=== PATIENT | female | born 1995 | race Two or more races ===

== ENCOUNTER → 2024-04-28 | Outpatient (CLI) | payer MEDICAID, SELFPAY ==
--- NOTE | 2024-04-28 14:00 | XR_ITS ---
Examination: Abdomen sonogram, complete Date and time of exam: April 28, 2024 at 1409 hours INDICATIONS: Elevated liver function tests on laboratory examination performed 2 months ago. Technique: Multiple real-time grayscale transabdominal sonographic images of the abdomen have been obtained. Findings: Cholelithiasis Gallbladder wall 0.3 cm no edema Common bile duct 0.3 cm Pancreatic head 2.8 cm Aorta not enlarged Liver 17.4 cm fatty infiltration smooth contour no focal liver lesions Normal hepatopedal portal venous oh Patent IVC Right kidney 10.5 x 4.8 x 6.3 cm cortex 1.5 cm Left kidney 10.7 x 5.6 x 5.0 cm cortex 2.1 cm Minimal parenchymal scar formation Spleen 9.0 cm IMPRESSION: Cholelithiasis Fatty liver no focal liver lesions
== END | disposition home or self-care (01) ==
PROVIDERS: PCP Nurse Practitioner; Referring Provider Nurse Practitioner; Visit Provider Nurse Practitioner
DX: K80.20 Calculus of gallbladder without cholecystitis without obstruction (principal); K76.0 Fatty (change of) liver, not elsewhere classified
CPT/HCPCS: 76700

== ENCOUNTER 2024-06-25 15:59 | Emergency (ER) | payer MEDICAID, SELFPAY ==
[2024-06-25 16:00] VITALS: BMI 20.5
--- NOTE | 2024-06-25 16:44 | XR_ITS ---
Examination: PA lateral chest 2 views TECHNIQUE: Upright PA lateral chest 2 views Exam date and time: June 25, 2024 1706 hours INDICATIONS: Coughing beginning 2 days ago. FINDINGS: Normal heart size Lungs are clear. The osseous structures are intact IMPRESSION: No active disease
--- NOTE | 2024-06-25 16:48 | PD.EDRME ---
Rapid Medical Screening Exam RME Arrival date/time: 06/25/24 15:59 28 yr old female presents for concerns for generalized weakness pt reports that she has sjogerns and nausea and vomiting Chief Complaint: Weakness Time Seen by Provider: 06/25/24 16:10
[2024-06-25 16:51] VITALS: BP 103/72; PULSE 88; RESP 18; TEMP 36.9; O2SAT 99
[2024-06-25] MEDS: ONDANSETRON ODT 4 MG TABRAP PO (16:58)
[2024-06-25 17:46] LABS: Lactate (Lactic Acid) 1.7 mMol/L (0.4-2.0)
[2024-06-25 17:52] LABS: Basophils % (Auto) 0 % (0-2.5); Eosinophils % (Auto) 0 % (0-10); Hematocrit 25.1 % (36.0-46.0); Immature Granulocytes % (Auto) 3 % (0-0); Immature Granulocytes Auto 0.29 Thou/mm3 (0.00-0.00); Lymphocytes # (Auto) 1.1 Thou/mm3 (1.0-4.8); Lymphocytes % (Auto) 11 % (10-50); Mean Corpuscular HGB Conc 31.9 g/dl (31.0-37.0); Mean Corpuscular Hemoglobin 26.3 pg (25.0-35.0); Mean Corpuscular Volume 83 fL (80-100); Monocytes # (Auto) 0.4 Thou/mm3 (0.0-0.8); Monocytes % (Auto) 4 % (0-12); Neutrophils # (Auto) 8.5 Thou/mm3 (1.8-7.7); Neutrophils % (Auto) 83 % (37-80); Nucleated Red Blood Cell # 0.03 Thou/mm3 (0.00-0.00); Nucleated Red Blood Cell % 0 /100 WBC (0); Platelet Count 307 Thou/mm3 (140-440); RDW Standard Deviation 68.5 fL (36.4-46.3); Red Blood Count 3.04 Miln/mm3 (4.00-5.20); White Blood Count 10.3 Thou/mm3 (3.6-11.0)
[2024-06-25 18:25] LABS: Alanine Aminotransferase 48 U/L (10-49); Albumin, Serum 2.8 gm/dL (3.5-5.0); Albumin/Globulin Ratio 0.6 (1.2-2.2); Alkaline Phosphatase 428 U/L (46-116); Anion Gap 10 (7-16); Aspartate Amino Transferase 269 U/L (0-34); BUN/Creatinine Ratio 12 Ratio (12-20); Blood Urea Nitrogen 6 mg/dL (9-23); Calcium 8.5 mg/dL (8.3-10.6); Calcium (Corrected) 9.5 mg/dL (8.5-10.1); Chloride 104 mMol/L (98-107); Creatinine (Component) 0.5 mg/dL (0.6-1.3); Estimated Creatinine Clearance 142.7 mL/min (>60); Free T4 (Free Thyroxine) 0.86 ng/dL (0.89-1.76); Globulin 4.9 gm/dL (2.3-3.5); Glucose 98 mg/dL (74-106); Lipase 19 U/L (12-53); Osmolality,Calculated 271 (275-295); Procalcitonin 0.69 ng/ml (0.0-0.49); Sodium 137 mMol/L (136-145); Thyroid Stimulating Hormone 2.17 uIU/mL (0.55-4.78); Total Protein 7.7 gm/dL (5.7-8.2); eGFR > 60 See Note
[2024-06-25 18:47] LABS: HCG,Qualitative Serum Negative
[2024-06-25 20:39] VITALS: BP 92/63; PULSE 92; RESP 16; TEMP 37; O2SAT 99
[2024-06-25 23:22] LABS: Collection Type, Urine Clean Catch; Squamous Epithelial Cell,Urine 0 /hpf (0-5)
[2024-06-25 23:46] LABS: Bacteria,Urine 4+; Bilirubin,Urine 1+ (Negative); Blood,Urine Trace (Negative); Color,Urine Drk-Orange (Lt Yel-Yel); Glucose, Urine Trace (Negative); Ketones,Urine Negative (Negative); Leukocyte Esterase,Urine Positive (Negative); Nitrite,Urine Negative (Negative); Protein,Urine 2+ (Neg - Trace); RBC,Urine 26 /hpf (0-3); Specific Gravity,Urine 1.034 (1.001-1.035); WBC,Urine 20 /hpf (0-5)
[2024-06-25 23:48] LABS: Clarity,Urine Turbid (Clear/Hazy)
[2024-06-26 02:12] VITALS: BP 101/73; PULSE 88; RESP 12; TEMP 37; O2SAT 100
[2024-06-26 04:30] VITALS: BP 99/68; PULSE 90; RESP 17; TEMP 37.2; O2SAT 100
--- NOTE | 2024-06-26 06:47 | PD.EDWEAK ---
ED Weakness RME/HPI General Chief complaint: Weakness Stated complaint: VOMITING, WEAKNESS, BLE PAIN Time Seen by Provider: 06/25/24 16:10 Arrival date/time: 06/25/24 15:59 RME / HPI RME / HPI Narrative: 06/25/24 15:59 28 yr old female presents for concerns for generalized weakness pt reports that she has sjogerns and nausea and vomiting DR. VILLALTA MAIN ED EVALUATION 28 y/o female with Hx of Sjorgren's Syndrome presents to ED c/o nausea and weakness x . Related Data Previous Rx's ?Medication ?Instructions ?Recorded azithromycin 250 mg tablet See Rx Instructions PO .COMPLEX #6 11/28/19 (Zithromax) tabs promethazine-DM 6.25 mg-15 mg/5 mL 5 ml PO Q6H PRN cough #120 mL 11/28/19 oral syrup Allergies Allergy/AdvReac Type Severity Reaction Status Date / Time No Known Allergies Allergy Verified 06/25/24 16:00 Review of Systems Review of Systems Systems Reviewed: All systems reviewed, normal except as documented Narrative Review of Systems: Gen: No fever, no chills, no weight loss EYES: No discharge, no visual changes, no pain HEENT: No ear pain, no congestion, no sore throat PULM: No shortness of breath, no cough, no congestion CV: No chest pain, no dyspnea on exertion, no palpitations GI: No nausea, no vomiting, no diarrhea, no pain, no constipation : No frequency, no urgency, no dysuria Musc/skel: No joint pain, no back pain Skin: No rash Psyc: No hallucinations, no depression Heme/Lymph: No easy bleeding or bruising tendencies Neuro: No weakness, no headache ED Exam Narrative Physical exam: GEN. APPEARANCE: The patient is alert awake oriented X-3 in distress, lying down comfortably, does not look ill/toxic. Patient has good eye contact. Patient is cooperative. VITALS: All vitals were reviewed and the pulse ox is []% on room air which is normal according to my interpretation. HEENT: Normocephalic, atraumatic. Pupils are equal and reactive. Oral mucosa is moist. Patent Nares NECK: Supple, nontender, no thyromegaly, no meningismus, no JVD, no step offs CHEST: Symmetrical, atraumatic, and with equal expansion , Nontender on palpation no deformity and no crepitus. CARDIOVASCULAR: Heart regular rhythm no murmur or gallop rub or extra beats. LUNGS: Clear to auscultation bilaterally with symmetrical chest rise. No laboring tachypnea or wheezing. No intercostal subcostal retraction. No rales and no rhonchi. ABDOMEN: Soft, flat, nontender to palpation, no guarding or rebound tenderness. There are no abnormal masses palpated. Active and normal bowel sounds. EXTREMITIES: Nontender. No edema. No cyanosis. Patient is able to move all 4 extremities well, with full ROM and good CSM. SKIN: Warm and dry, no jaundice or rashes noted. MUSCULOSKELETAL: No lubar or midline bony tenderness. There is no CVA tenderness. No paraspinal muscle spasm or tenderness. NEURO: Patient is PEREZ x 4, Cranial nerves II through XII grossly intact. There is no focal neurologic deficits noted. GCS is 15, PNS and MARINE ARCHITECT appear grossly intact. PSYCHIATRIC: Patient is in normal mood and affect, cooperative, no SI or HI or hallucinations. Course Course Course Narrative: Patient remains clinically stable throughout the emergency department visit/*not in respiratory distress/*neurologically intact. We reviewed all the results, analysis, and treatment plans. Patient is amenable to discharge/*admission. Strict return precautions were outlined. Patient was discharged in stable condition. Orders Category Date Time Status Bedside Influenza A&B Antigen Test NOW Care 06/25/24 16:44 Completed XR chest 2V Stat Exams 06/25/24 16:44 Completed Blood Culture (Lab) Stat Lab 06/25/24 17:20 Received CBC Stat Lab 06/25/24 17:25 Completed Comprehensive Metabolic Panel Stat Lab 06/25/24 17:25 Completed Free T4 (Free Thyroxine) Stat Lab 06/25/24 17:25 Completed HCG,Qualitative Serum Stat Lab 06/25/24 17:25 Completed Lactate (Lactic Acid) Stat Lab 06/25/24 17:25 Completed Lipase Stat Lab 06/25/24 17:25 Completed Procalcitonin Stat Lab 06/25/24 17:25 Completed TSH [Thyroid Stimulating Hormone] Stat Lab 06/25/24 17:25 Completed Urinalysis Stat Lab 06/25/24 23:09 Completed Urine Culture Stat Lab 06/25/24 23:09 Received Metoclopramide Inj [Reglan Inj] Med 06/26/24 06:49 Discontinued 10 mg IVP X1 ONE Ondansetron Inj [Zofran Inj] Med 06/26/24 06:46 Discontinued 4 mg IV X1 ONE Ondansetron Odt [Zofran Odt] Med 06/25/24 16:52 Discontinued 4 mg PO X1 ONE Sodium Chloride 0.9% 1000 ml [Ns] 1,000 ml Med 06/26/24 06:46 Discontinued IV 999 mls/hr Sodium Chloride 0.9% 500 ml [Ns] 500 ml Med 06/26/24 06:46 Discontinued IV 999 mls/hr cefTRIAXone/D5w 1gm IV premix [Rocephin/D5w 1gm IV Med 06/26/24 06:46 Discontinued premix] 1 gm in 50 ml IV X1 Vital Signs Vital signs: Vital Signs Temperature 98.5 F 06/25/24 16:51 Pulse Rate 88 06/25/24 16:51 Respiratory Rate 18 06/25/24 16:51 Blood Pressure 103/72 06/25/24 16:51 Pulse Oximetry (%) 99 06/25/24 16:51 Oxygen Delivery Method Room Air 06/25/24 16:51 Weakness Medications / Prescriptions Medication administrations:: Medication Administration History Discontinued Medications Sodium Chloride (Ns) 1,000 mls @ 999 mls/hr IV .Q1H1M ONE Stop: 06/26/24 07:46 Last Admin: 06/26/24 06:56 Dose: 999 mls/hr Documented By: ARMIDA Sodium Chloride (Ns) 500 mls @ 999 mls/hr IV .Q31M ONE Stop: 06/26/24 07:16 Last Admin: 06/26/24 07:00 Dose: 999 mls/hr Documented By: ARMIDA Ceftriaxone Sodium/Dextrose (Rocephin/D5w 1gm Iv Premix) 1 gm in 50 mls @ 100 mls/hr IV X1 ONE Stop: 06/26/24 07:15 Metoclopramide HCl (Metoclopramide Inj 5 Mg/Ml Vial 2 Ml) 10 mg IVP X1 ONE; Protocol Stop: 06/26/24 06:50 Last Admin: 06/26/24 07:00 Dose: 10 mg Documented By: ARMIDA Ondansetron HCl (Ondansetron Odt 4 Mg Tabrap) 4 mg PO X1 ONE; Protocol Stop: 06/25/24 16:53 Last Admin: 06/25/24 16:58 Dose: 4 mg Documented By: ANNALISA Ondansetron HCl (Ondansetron Inj 2 Mg/Ml Inj 2 Ml) 4 mg IV X1 ONE; Protocol Stop: 06/26/24 06:47 Last Admin: 06/26/24 07:00 Dose: Not Given Documented By: ARMIDA Non-Admin Reason: Discontinued Discharge Plan Prescriptions/Referrals Prescriptions/Med Rec: No Action azithromycin [Zithromax] 250 mg tablet See Rx Instructions .ROUTE .COMPLEX Qty: 6 0RF Rx Instructions: take 500 mg today (day 1), then 250 mg for 4 days (days 2-5) promethazine-DM 6.25-15 mg/5 mL syrup 5 ml PO Q6H PRN (Reason: cough) Qty: 120 0RF Referrals: Marek Bullock MD [Primary Care Provider] - In 1 week Patient/Caregiver Discharge Instructions Print Language: [place]ese
[2024-06-26] MEDS: SODIUM CHLORIDE 0.9% 1000 ML 1,000 ML 999 ML IV (06:56)
[2024-06-26] MEDS: METOCLOPRAMIDE INJ 5 MG/ML VIAL 2 ML 10 MG IVP (07:00)
[2024-06-26] MEDS: SODIUM CHLORIDE 0.9% 500 ML 500 ML 999 ML IV (07:00)
--- NOTE | 2024-06-26 07:00 | PC.NURSE ---
mandi out of antibiotic, pharmacy to bring med.
--- NOTE | 2024-06-26 07:35 | PD.EDWEAK ---
ED Weakness RME/HPI General Chief complaint: Weakness Stated complaint: VOMITING, WEAKNESS, BLE PAIN Time Seen by Provider: 06/25/24 16:10 Arrival date/time: 06/25/24 15:59 RME / HPI RME / HPI Narrative: 06/25/24 15:59 28 yr old female presents for concerns for generalized weakness pt reports that she has sjogerns and nausea and vomiting DR. VILLALTA MAIN ED EVALUATION: 28 year old female with past medical history significant for Sj?gren's Syndrome presents to the Emergency Department with complaints of generalized weakness, nausea and vomiting. Symptoms are moderate. A year ago, March 2023, patient developed generalized joint pain, intially iagnosed with fibromyalgia by her PCP at [facility]. October 2023 the patient began experiencine nausea without the pain. January 2024 began vomit most solids where from March on could only tolerate rice and fruits. She has lost weight since January going from approximately 180 pounds to today 120 pounds. As result she has become weak requiring her mother had to move in with her to help care for her 2 children at home. In January 2024, her PCP expanded workup and told possibly has Sj?gren's Syndrome and referred to a press operator assistant in [place]. On first visit with press operator assistant March, her liver enzymes were abnormal and US showed liver disease. She has not been diagnosed yet with Sjogren's pending liver work-up. This included follow-up labs and US which was scheduled yesterday. After her outpatient ultrasound yesterday she felt too weak to get to her car therefore she presented to the emergency department for assessment. w She states, her vomiting has worsened over the last 4 days. No pain with eating just nausea. No diarrhea, no constipation. No dysuria, polyuria or nocturia. Patient denies any abdominal pain. She describes nausea at even the smell of food. She completed a short course of ondansetron with improvement of symptoms but still felt mild nausea. Related Data Previous Rx's ?Medication ?Instructions ?Recorded azithromycin 250 mg tablet See Rx Instructions PO .COMPLEX #6 11/28/19 (Zithromax) tabs promethazine-DM 6.25 mg-15 mg/5 mL 5 ml PO Q6H PRN cough #120 mL 11/28/19 oral syrup cephalexin 500 mg capsule 500 mg PO BID #6 caps 06/26/24 metoclopramide HCl 10 mg tablet 10 mg PO BID PRN nausea and 06/26/24 vomiting #10 tabs Allergies Allergy/AdvReac Type Severity Reaction Status Date / Time No Known Allergies Allergy Verified 06/25/24 16:00 Review of Systems Review of Systems Systems Reviewed: All systems reviewed, normal except as documented Narrative Review of Systems: GEN: No fever, no chills, no weight loss EYES: No discharge, no visual changes, no pain HEENT: No ear pain, no congestion, no sore throat PULM: No shortness of breath, no cough, no congestion CV: No chest pain, no dyspnea on exertion, no palpitations GI: + nausea, + vomiting, no diarrhea, no pain, no constipation : No frequency, no urgency and no dysuria MUSC/SKEL: No joint pain, no back pain SKIN: No rash PSYCH: No hallucinations, no depression HEME/LYMPH: No easy bleeding or bruising tendencies NEURO: + generalized weakness, no headache Past Medical History Past Medical History CARDIAC: Negative Congestive Heart Failure RESPIRATORY: Negative Chronic Obstructive Pulmonary Disease (COPD) GENITOURINARY: Negative Renal Disease ENDOCRINE: Negative Diabetes Mellitus Type 1 or Diabetes Mellitus Type 2 Social History SMOKING STATUS: Never smoker SUBSTANCE USE: does not use ALCOHOL: Never Past Medical History Comments PMH COMMENT: Sj?gren's Syndrome ED Exam Narrative Physical exam: GENERAL APPEARANCE: AxOx4, generally well-appearing, no acute distress, patient looks dehydrated, she has cracked, dry lips; constantly licking her lips; slight pallor; skin is dry and scaly; hair is brittle but no alopecia HEENT: NC, AT. MMM. EOMI, clear conjunctiva, oropharynx clear; patient has cracked, dry lips NECK: Supple without lymphadenopathy. No stiffness or restricted ROM. HEART: Normal rate and regular rhythm, normal S1/S1, no m/r/g LUNGS: CTAB, moving air well. No crackles or wheezes are heard. ABDOMEN: Soft, nontender, nondistended with good bowel sounds heard. BACK: No midline C/T/L spine pain or deformity, No CVAT, no obvious deformity. EXTREMITIES: Without cyanosis, clubbing or edema. MUSCULOSKELETAL: FROM of all major joints, no chest tenderness NEUROLOGICAL: Grossly nonfocal. Alert and oriented, moving all 4 extremities. CN not formally tested but appear grossly intact. Observed to ambulate with normal gait. Skin: Warm and dry without any rash; slight pallor, no jaundice; she has loose skin around her abdomen area from a lot of weight loss; skin is dry and scaly Course Quality Measures none Orders Category Date Time Status Bedside Influenza A&B Antigen Test NOW Care 06/25/24 16:44 Completed XR chest 2V Stat Exams 06/25/24 16:44 Completed Blood Culture (Lab) Stat Lab 06/25/24 17:20 Received CBC Stat Lab 06/25/24 17:25 Completed Comprehensive Metabolic Panel Stat Lab 06/25/24 17:25 Completed Free T4 (Free Thyroxine) Stat Lab 06/25/24 17:25 Completed HCG,Qualitative Serum Stat Lab 06/25/24 17:25 Completed Lactate (Lactic Acid) Stat Lab 06/25/24 17:25 Completed Lipase Stat Lab 06/25/24 17:25 Completed Procalcitonin Stat Lab 06/25/24 17:25 Completed TSH [Thyroid Stimulating Hormone] Stat Lab 06/25/24 17:25 Completed Urinalysis Stat Lab 06/25/24 23:09 Completed Urine Culture Stat Lab 06/25/24 23:09 Received Metoclopramide Inj [Reglan Inj] Med 06/26/24 06:49 Discontinued 10 mg IVP X1 ONE Ondansetron Inj [Zofran Inj] Med 06/26/24 06:46 Discontinued 4 mg IV X1 ONE Ondansetron Odt [Zofran Odt] Med 06/25/24 16:52 Discontinued 4 mg PO X1 ONE Sodium Chloride 0.9% 1000 ml [Ns] 1,000 ml Med 06/26/24 06:46 Discontinued IV 999 mls/hr Sodium Chloride 0.9% 500 ml [Ns] 500 ml Med 06/26/24 06:46 Discontinued IV 999 mls/hr cefTRIAXone/D5w 1gm IV premix [Rocephin/D5w 1gm IV Med 06/26/24 06:46 Discontinued premix] 1 gm in 50 ml IV X1 Reevaluation(s) Reevaluation #1: Reassessment at this time, patient has no more nausea after reglan. Patient is going to try to eat a turkey sandwich here and then we will re-assess. Time: 08:51 Reevaluation #2: Reassessment at this time, patient is feeling better. She was able to eat 2 bites of a turkey sandwich and no nausea at all. She states that reglan works better for her than zofran; she states even after taking zofran she would sometimes feel a little nauseous but today with reglan she feels so much better. Time: 09:11 Vital Signs Vital signs: Vital Signs Temperature 98.5 F 06/25/24 16:51 Pulse Rate 88 06/25/24 16:51 Respiratory Rate 18 06/25/24 16:51 Blood Pressure 103/72 06/25/24 16:51 Pulse Oximetry (%) 99 06/25/24 16:51 Oxygen Delivery Method Room Air 06/25/24 16:51 Weakness MDM Narrative MDM Narrative:: Ms. Chambers is a clinically nontoxic-appearing female, who appears to have some component of undernutrition particularly micronutrient and nutrition secondary to persistent/chronic nausea and vomiting. This is possibly around the setting of a pending diagnosis of Sjogren's disease. Workup and treatment has been initiated and these last months with a press operator assistant in [place]. There appears to be no acute changes in her nausea and vomiting particularly that it has reached a certain level of hydration and nutrient deficiency that is caused generalized weakness. This weakness has been since January where her mother has moved into the house to assist with the care of her children. Through her workup this included a visit to the outpatient ultrasound suite where since she was here she comes to the emergency department for this weakness. On my exam she does appear dehydrated, with dry lips, on top of a chronic undernutrition. She has hair and skin changes also suggestive of micronutrient deficiency all in the setting of chronic poor intake. Most acutely is that she does appear dehydrated, tachycardic here in the emergency department which is more fitting with her difficulty getting home from the outpatient ultrasound yesterday. As a result she was hydrated with 1.5 L of NS (just under 30 cc/kg) and her only laboratory abnormality was a moderate amount of bacteriuria, therefore she was given her first dose of Rocephin. In this treatment process, we did experiment with an alternative antiemetic, metoclopramide, taking the possibility of her having the diagnosis of Sjogren's which can have associated gastroparesis. After giving the metoclopramide, she noticed that this had completely resolved her nausea (while she was on ondansetron she always had some mild nausea regardless). She was able to tolerate 2 bites of a turkey sandwich which is more substance than she has had since March. And of note she had no nausea with the food nor with its smell. She states the last she felt this way was as far back as March as well. Given her symptomatic improvement with the metoclopramide, reviewed some of the risks of long-term metoclopramide use including akathisia and tardive dyskinesias. We agreed on a short course of metoclopramide, this also in consideration that she has a rheumatology appointment next week. She will discuss longer-term antiemetic needs with her press operator assistant and her primary care doctor. As for her asymptomatic bacteriuria we will treat her with 3 days of cephalexin it is appropriate to follow-up with your primary care doctor for this. IJelly, am scribing for and in the presence of Dr. Villalta. Patient data External records reviewed:: [facility] previous records (Reviewed last ED visit dated 11/28/19, discharged with the following: Cough) Clinical information provided by:: patient Social determinants that could affect healthcare access:: none Patient has the following chronic illnesses:: Sj?gren's Syndrome How is presenting disease/condition affected by chronic disease/condition?: exacerbated by Evaluation data The following diagnostics were reviewed and interpreted by me:: lab results and radiology exam(s) Lab and/or radiology exams considered but not ordered:: none Interpretation Summary: Examination: PA lateral chest 2 views TECHNIQUE: Upright PA lateral chest 2 views Exam date and time: June 25, 2024 1706 hours INDICATIONS: Coughing beginning 2 days ago. FINDINGS: Normal heart size Lungs are clear. The osseous structures are intact IMPRESSION: No active disease Dictated By: Richi Del Real MD Medications / Prescriptions Medications or Prescriptions considered but not ordered:: none Medication administrations:: Medication Administration History Discontinued Medications Sodium Chloride (Ns) 1,000 mls @ 999 mls/hr IV .Q1H1M ONE Stop: 06/26/24 07:46 Last Infusion: 06/26/24 08:00 Dose: Infused Documented By: Admin: 06/26/24 06:56 Dose: 999 mls/hr Documented By: ARMIDA Sodium Chloride (Ns) 500 mls @ 999 mls/hr IV .Q31M ONE Stop: 06/26/24 07:16 Last Infusion: 06/26/24 08:00 Dose: Infused Documented By: Admin: 06/26/24 07:00 Dose: 999 mls/hr Documented By: ARMIDA Ceftriaxone Sodium/Dextrose (Rocephin/D5w 1gm Iv Premix) 1 gm in 50 mls @ 100 mls/hr IV X1 ONE Stop: 06/26/24 07:15 Last Admin: 06/26/24 08:14 Dose: 100 mls/hr Documented By: AILIN Metoclopramide HCl (Metoclopramide Inj 5 Mg/Ml Vial 2 Ml) 10 mg IVP X1 ONE; Protocol Stop: 06/26/24 06:50 Last Admin: 06/26/24 07:00 Dose: 10 mg Documented By: ARMIDA Ondansetron HCl (Ondansetron Odt 4 Mg Tabrap) 4 mg PO X1 ONE; Protocol Stop: 06/25/24 16:53 Last Admin: 06/25/24 16:58 Dose: 4 mg Documented By: ANNALISA Ondansetron HCl (Ondansetron Inj 2 Mg/Ml Inj 2 Ml) 4 mg IV X1 ONE; Protocol Stop: 06/26/24 06:47 Last Admin: 06/26/24 07:00 Dose: Not Given Documented By: ARMIDA Non-Admin Reason: Discontinued see above Consultations Consultation(s) initiated? (list below): No Diagnosis Weakness Differential Diagnosis: dehydration and other (Sj?gren's Syndrome, electrolyte imbalance) Most likely diagnosis given after review of the tests above:: Nausea and vomiting Arthritis UTI Admission Indicated Admission indicated?: not indicated Admission Request Was there a request for admission?: No Disposition Plan Disposition Plan: Discharge Discharge Attestation Discharge Attestation: The patient and all family members were given an opportunity to ask questions and understood the discharge instructions. Discharge instructions specifically effects, indications for sooner follow up or return to the emergency department, and the expected course of current diagnosis. Patient condition: Stable Discharge Plan Plan Patient Disposition: HOME (Self Care) Prescriptions/Referrals Prescriptions/Med Rec: New metoclopramide HCl 10 mg tablet 10 mg PO BID PRN (Reason: nausea and vomiting) Qty: 10 0RF cephalexin 500 mg capsule 500 mg PO BID Qty: 6 0RF No Action azithromycin [Zithromax] 250 mg tablet See Rx Instructions .ROUTE .COMPLEX Qty: 6 0RF Rx Instructions: take 500 mg today (day 1), then 250 mg for 4 days (days 2-5) promethazine-DM 6.25-15 mg/5 mL syrup 5 ml PO Q6H PRN (Reason: cough) Qty: 120 0RF Referrals: Marek Bullock MD [Primary Care Provider] - In 1 week Problem List Clinical Impression: Nausea & vomiting, Arthritis, UTI (urinary tract infection) Patient/Caregiver Discharge Instructions Education Materials: ED Diet for Vomiting or ..., ED CYSTITIS Female Adult Additional Instructions: Follow-up with your press operator assistant as scheduled this week. You can return to the emergency department sooner if symptoms worsen or if he notes any new, concerning issues. Try to increase plant-based foods in your diet particularly foods that are green leafy with high fiber. Print Language: Syriac Stand Alone Forms: Torie Award Info., Patient Portal Info Letter
[2024-06-26 07:54] VITALS: BP 105/72; PULSE 90; RESP 16; TEMP 36.8; O2SAT 100
[2024-06-26] MEDS: cefTRIAXone/D5w 1gm IV premix 1 GM/50 ML BAG IV (08:14)
--- NOTE | 2024-06-26 09:00 | PC.NURSE ---
FLUIDS AND SANDWICH PROVIDED. PT TOLERATED WELL.
[2024-06-26 09:23] VITALS: BP 112/62; PULSE 88; RESP 16; TEMP 36.6; O2SAT 100
== END 2024-06-26 09:28 | disposition home or self-care (01) ==
PROVIDERS: Nurse Practitioner Primary Care; Emergency Provider Emergency Medicine; PCP Family Medicine
DX: R11.2 Nausea with vomiting, unspecified (principal); N39.0 Urinary tract infection, site not specified; M19.90 Unspecified osteoarthritis, unspecified site; M35.00 Sjogren syndrome, unspecified; M79.7 Fibromyalgia
CPT/HCPCS: 36415; 71046; 80053; 81001; 83605; 83690; 84145; 84439; 84443; 84703; 85025; 87040; 87086; 87400; 96361; 96374; 99284; J0696; J2765; J7030; J7040; Q0162

== ENCOUNTER → 2024-06-25 | Outpatient (CLI) | payer MEDICAID, SELFPAY ==
--- NOTE | 2024-06-25 12:30 | XR_ITS ---
Examination: Abdomen sonogram, Limited Date and time of exam: June 25, 2024 1226 hours INDICATIONS: Elevated liver function tests on laboratory examination performed one month ago. TECHNIQUE: Sonographic images upright abdomen FINDINGS: Cholelithiasis Gallbladder wall 0.3 cm no edema Common bile duct 0.4 cm Pancreatic head 1.9 cm Liver 22.8 cm fatty infiltration irregular contour Normal hepatopedal portal venous flow Patent IVC IMPRESSION: Cholelithiasis Significant hepatomegaly primary hepatocellular disease
== END | disposition home or self-care (01) ==
PROVIDERS: PCP Nurse Practitioner Family; Referring Provider Internal Medicine Rheumatology; Visit Provider Internal Medicine Rheumatology
DX: K80.20 Calculus of gallbladder without cholecystitis without obstruction (principal); R16.0 Hepatomegaly, not elsewhere classified
CPT/HCPCS: 76705

== ENCOUNTER 2024-07-02 14:19 | Emergency (ER) | payer MEDICAID, SELFPAY ==
[2024-07-02 14:52] VITALS: BP 91/62; PULSE 106; RESP 18; TEMP 36.9; O2SAT 98; BMI 19.7
--- NOTE | 2024-07-02 15:09 | XR_ITS ---
Examination: CT abdomen with intravenous contrast CT pelvis with intravenous contrast 2-D coronal reconstructions 2-D sagittal reconstructions Date and time of exam:July 02, 2024 1736 hrs. Indications: Right lower abdominal pain onset today. CTDI: vol (mGy) 5.08 DLP: (mGycm) 289 Technique: Multiple axial sections of the abdomen and pelvis have been obtained. 64 slice high-resolution scanner used. 3 mm axial sections have been obtained, post intravenous injection 60 cc [id number] 2-D sagittal, coronal reconstructions obtained. Low dose protocols were performed. One or more of the following dose reduction techniques were used; automated exposure control, adjustment of the mA and/or KV according to patient size, use of iterative reconstruction technique. Findings: Severe diffuse fatty infiltration throughout the liver, marked hepatomegaly 23 cm Gallstones No definite thickening of the gallbladder wall Spleen is not enlarged No pancreatic or adrenal mass Mild diffuse edema involving the right kidney Normal appendix No bowel obstruction Septated bilateral adnexal cysts, 15 mm 14 mm on the left side, 18 mm 12 mm on the right side Minimal thickening gallbladder wall 3 mm Impression: Normal appendix Suspicious for acute right pyelonephritis Prominent hepatomegaly with severe diffuse fatty infiltration throughout the liver Prominent ovarian bilateral follicular cysts, consider pelvic sonography follow-up
--- NOTE | 2024-07-02 15:09 | EKG_ITS ---
[facility] Test Date: 2024-07-02 Pat Name: VICTOR M ALLRED Department: Room: - Gender: Female [place]: : 1995 Requested By: Carolyn Hall ([facility]) Irina Order Number: [id number] Reading MD: Carolyn Hall ([facility]) Irina Measurements Intervals [place] Rate: 101 P: 35 ME: 127 QRS: 75 QRSD: 80 T: 50 QT: 335 QTc: 434 Interpretive Statements SINUS TACHYCARDIA ABNORMAL RHYTHM ECG No previous ECG available for comparison /store/S0/[id number]/ecg/[id number].pdf
--- NOTE | 2024-07-02 15:09 | PD.EDRME ---
Rapid Medical Screening Exam RME Arrival date/time: 07/02/24 14:19 28-year-old female presents emergency department complaints of nausea vomiting abdominal pain history of anemia. I have greeted and performed a focused initial assessment of this patient. Initial appropriate labs ordered at this time. A comprehensive ED assessment and evaluation of the patient and analysis of all test and completion of medical decision making process will be conducted by additional ED provider. Chief Complaint: Nausea/Vomiting/Diarrhea Time Seen by Provider: 07/02/24 14:50 Vital signs: Vital Signs Temperature 98.4 F 07/02/24 14:52 Pulse Rate 106 H 07/02/24 14:52 Respiratory Rate 18 07/02/24 14:52 Blood Pressure 91/62 07/02/24 14:52 Pulse Oximetry (%) 98 07/02/24 14:52 Oxygen Delivery Method Room Air 07/02/24 14:52
[2024-07-02 15:44] VITALS: BP 95/61; PULSE 103; RESP 16; O2SAT 100
[2024-07-02 15:49] LABS: Basophils % (Auto) 0 % (0-2.5); Eosinophils % (Auto) 0 % (0-10); Hematocrit 23.8 % (36.0-46.0); Immature Granulocytes % (Auto) 2 % (0-0); Immature Granulocytes Auto 0.21 Thou/mm3 (0.00-0.00); Lymphocytes # (Auto) 0.8 Thou/mm3 (1.0-4.8); Lymphocytes % (Auto) 8 % (10-50); Mean Corpuscular HGB Conc 31.9 g/dl (31.0-37.0); Mean Corpuscular Hemoglobin 26.5 pg (25.0-35.0); Mean Corpuscular Volume 83 fL (80-100); Monocytes # (Auto) 0.3 Thou/mm3 (0.0-0.8); Monocytes % (Auto) 4 % (0-12); Neutrophils # (Auto) 8.5 Thou/mm3 (1.8-7.7); Neutrophils % (Auto) 86 % (37-80); Nucleated Red Blood Cell # 0.05 Thou/mm3 (0.00-0.00); Nucleated Red Blood Cell % 1 /100 WBC (0); Platelet Count 283 Thou/mm3 (140-440); RDW Standard Deviation 72.8 fL (36.4-46.3); Red Blood Count 2.87 Miln/mm3 (4.00-5.20); White Blood Count 9.9 Thou/mm3 (3.6-11.0)
[2024-07-02 15:56] LABS: Hemoglobin 7.6 g/dL (12.0-16.0)
[2024-07-02 16:00] LABS: HCG,Qualitative Serum Negative
[2024-07-02] MEDS: SODIUM CHLORIDE 0.9% 1000 ML 1,000 ML 999 ML IV ×2 (16:05→18:46)
[2024-07-02] MEDS: ONDANSETRON INJ 2 MG/ML INJ 2 ML 4 MG IV (16:05)
[2024-07-02 16:06] LABS: Alanine Aminotransferase 36 U/L (10-49); Albumin, Serum 2.5 gm/dL (3.5-5.0); Albumin/Globulin Ratio 0.5 (1.2-2.2); Alkaline Phosphatase 383 U/L (46-116); Anion Gap 11 (7-16); Aspartate Amino Transferase 193 U/L (0-34); BUN/Creatinine Ratio 13 Ratio (12-20); Bilirubin,Total 1.2 mg/dL (0.3-1.2); Blood Urea Nitrogen 8 mg/dL (9-23); Calcium 7.8 mg/dL (8.3-10.6); Carbon Dioxide 22.1 mMol/L (20.0-31.0); Chloride 102 mMol/L (98-107); Creatinine (Component) 0.6 mg/dL (0.6-1.3); Estimated Creatinine Clearance 113.9 mL/min (>60); Globulin 4.9 gm/dL (2.3-3.5); Glucose 97 mg/dL (74-106); Lipase 20 U/L (12-53); Magnesium 2.1 mg/dL (1.6-2.6); Osmolality,Calculated 268 (275-295); Potassium 3.6 mMol/L (3.4-5.1); Sodium 135 mMol/L (136-145); Total Protein 7.4 gm/dL (5.7-8.2); eGFR > 60 See Note
--- NOTE | 2024-07-02 16:10 | PC.NURSE ---
pt came in reporting abdomincal pain for a week. reports that the weakness & nausea has worsen. unable to keep anything down. mom at bedside
[2024-07-02 16:18] LABS: Prothrombin Time 10.9 Seconds (9.0-12.2)
--- NOTE | 2024-07-02 16:27 | PC.NURSE ---
occult stool collected. negative
[2024-07-02 16:38] LABS: OBS Card Expiration Date 5/31/2026; OBS Developer Lot # 124; OBS Performed By chatk; OBS QC OK? Yes; Occult Blood, Stool Negative (Negative)
--- NOTE | 2024-07-02 16:42 | PD.EDABDPN ---
ED Abdominal Pain RME/HPI General Chief Complaint: Nausea/Vomiting/Diarrhea Stated complaint: NAUSEA / VOMITING / ABD PAIN X 2 WKS; HX GALLSTONE Time seen by provider: 07/02/24 14:50 Arrival date/time: 07/02/24 14:19 RME / HPI RME / HPI narrative: 07/02/24 14:19 28-year-old female presents emergency department complaints of nausea vomiting abdominal pain history of anemia. I have greeted and performed a focused initial assessment of this patient. Initial appropriate labs ordered at this time. A comprehensive ED assessment and evaluation of the patient and analysis of all test and completion of medical decision making process will be conducted by additional ED provider. DR. PERRIN MAIN ED EVALUATION 28 year old female with history of anemia and gallstones presents to the ED for complaint of abdominal pain today. Pain described as aching in sensation that is located most to the right upper quadrant and epigastric regions, rating as moderate. Accompanied by nausea, vomiting, and global weakness. Patient reports she has had abdominal pain with nausea and vomiting for several months, close to 1 year. However has noted it is worse in the last 2 days. States she has yet to consult with general surgeon. Denies fevers, chills, sweats. Denies chest pain, cough, shortness of breath. Denies blood in stool or vomit, diarrhea, constipation. Denies dysuria, urinary frequency and urgency. Patient mentioned her menses are normal and light . Related Data Previous Rx's ?Medication ?Instructions ?Recorded azithromycin 250 mg tablet See Rx Instructions PO .COMPLEX #6 11/28/19 (Zithromax) tabs promethazine-DM 6.25 mg-15 mg/5 mL 5 ml PO Q6H PRN cough #120 mL 11/28/19 oral syrup cephalexin 500 mg capsule 500 mg PO BID #6 caps 06/26/24 metoclopramide HCl 10 mg tablet 10 mg PO BID PRN nausea and 06/26/24 vomiting #10 tabs ondansetron 4 mg disintegrating 4 mg PO Q8H PRN nausea and 07/03/24 tablet vomiting #20 tabs Allergies Allergy/AdvReac Type Severity Reaction Status Date / Time No Known Allergies Allergy Verified 07/02/24 14:23 Review of Systems Review of Systems Narrative Review of Systems: GEN: No fever, no chills, +generalized weakness EYES: No discharge, no visual changes, no pain HEENT: No ear pain, no congestion, no sore throat PULM: No shortness of breath, no cough, no congestion CV: No chest pain, no dyspnea on exertion, no palpitations GI: + nausea, +vomiting, no diarrhea, +pain, no constipation : No frequency, no urgency, no dysuria MUSC/SKEL: No joint pain, no back pain SKIN: No rash NEURO: no headache Past Medical History Past Medical History CARDIAC: Negative Cardiac Disorders or Congestive Heart Failure RESPIRATORY: Negative Chronic Obstructive Pulmonary Disease (COPD) or Asthma GENITOURINARY: Negative Renal Disease ENDOCRINE: Negative Diabetes Mellitus Type 1 or Diabetes Mellitus Type 2 HEMATOLOGIC: Negative Sickle Cell Disease Social History SMOKING STATUS: Never smoker SUBSTANCE USE: does not use ED Exam Narrative Physical exam: GENERAL APPEARANCE: alert and oriented x 4, well-developed, appears under nourished, pale HEENT: Normocephalic, atraumatic; pupils equal, round, reactive to light; EOMI; mucous membranes pink, moist; oropharynx clear NECK: Supple LUNGS: CTABL; no wheezes, no rales, no rhonchi HEART: Regular rate, regular rhythm; normal S1, S2; no murmurs ABDOMEN: mildly distended; normal BS; soft, no tenderness, no guarding, no rebound; no masses, no organomegaly, no hernia BACK: no CVA tenderness EXTREMITIES: atraumatic; no edema NEUROLOGIC: awake; alert and oriented x4; cranial nerves II-XII grossly intact; no focal sensory or motor deficits PSYCHIATRIC: appropriate mood and affect SKIN: warm, dry, pale; no rashes Course Course Course Narrative: 1800: Patient signed out pending CT report and final disposition. Quality Measures none Orders Category Date Time Status CT Screening NOW Care 07/02/24 15:10 Completed EKG (ED ONLY) *Do not use* NOW Care 07/02/24 15:09 Completed Insert IV NOW Care 07/02/24 15:10 Completed NPO STAT Care 07/02/24 15:09 Completed Occult Blood,Stool (Nursing) NOW Care 07/02/24 16:[address] abdomen pelvis w con Stat Exams 07/02/24 15:09 Completed EKG (ED Only) Stat Exams 07/02/24 15:09 Draft US gall bladder Stat Exams 07/03/24 05:25 Completed US pelvic complete Stat Exams 07/02/24 21:24 Completed CBC Stat Lab 07/02/24 15:25 Completed Comprehensive Metabolic Panel Stat Lab 07/02/24 15:25 Completed Drug Screen,Urine Stat Lab 07/02/24 18:48 Completed HCG,Qualitative Serum Stat Lab 07/02/24 15:25 Completed Lipase Stat Lab 07/02/24 15:25 Completed Magnesium Stat Lab 07/02/24 15:25 Completed Occult Blood, Stool (LAB) Stat Lab 07/02/24 16:20 Completed Prothrombin Time with INR Stat Lab 07/02/24 15:25 Completed Type and Screen Stat Lab 07/02/24 15:25 Completed UA, C/S IF [Urinalysis, C/S if Indicated] Stat Lab 07/02/24 18:48 Completed UA, C/S IF [Urinalysis, C/S if Indicated] Stat Lab 07/02/24 19:54 Completed Urinalysis Stat Lab 07/02/24 18:48 Completed Urinalysis Stat Lab 07/02/24 19:54 Completed Metoclopramide Inj [Reglan Inj] Med 07/03/24 06:15 Discontinued 10 mg IVP X1 ONE Ondansetron Inj [Zofran Inj] Med 07/02/24 15:10 Discontinued 4 mg IV X1 ONE Sodium Chloride 0.9% 1000 ml [Ns] 1,000 ml Med 07/02/24 15:10 Discontinued IV 999 mls/hr Sodium Chloride 0.9% 1000 ml [Ns] 1,000 ml Med 07/02/24 18:31 Discontinued IV 999 mls/hr Vital Signs Vital signs: Vital Signs Temperature 98.4 F 07/02/24 14:52 Pulse Rate 106 H 07/02/24 14:52 Respiratory Rate 18 07/02/24 14:52 Blood Pressure 91/62 07/02/24 14:52 Pulse Oximetry (%) 98 07/02/24 14:52 Oxygen Delivery Method Room Air 07/02/24 14:52 Pulse ox is 98% on room air which is adequate. Abdominal Pain MDM MDM Narrative MDM Narrative:: IReema, kristopher scribing for and in the presence of Dr. Perrin. Patient data External records reviewed:: [facility] previous records (I reviewed ED visit on 06/26/2024 ) Clinical information provided by:: patient Social determinants that could affect healthcare access:: none Patient has the following chronic illnesses:: Anemia, cholelithiasis How is presenting disease/condition affected by chronic disease/condition?: exacerbated by Evaluation data The following diagnostics were reviewed and interpreted by me:: lab results and EKG tracing(s) Lab and/or radiology exams considered but not ordered:: None Interpretation Summary: H/H 7.6/23.8 and chronically low, no elevated WBC Medications / Prescriptions Medications or Prescriptions considered but not ordered:: None Medication administrations:: Medication Administration History Discontinued Medications Sodium Chloride (Ns) 1,000 mls @ 999 mls/hr IV .Q1H1M ONE Stop: 07/02/24 16:10 Last Infusion: 07/02/24 18:32 Dose: Infused Documented By: JOSE A Infusion: 07/02/24 17:25 Dose: Infused Documented By: Admin: 07/02/24 16:05 Dose: 999 mls/hr Documented By: JOSE A Sodium Chloride (Ns) 1,000 mls @ 999 mls/hr IV .Q1H1M ONE Stop: 07/02/24 19:31 Last Infusion: 07/02/24 19:47 Dose: Infused Documented By: Admin: 07/02/24 18:46 Dose: 999 mls/hr Documented By: JOSE A Metoclopramide HCl (Metoclopramide Inj 5 Mg/Ml Vial 2 Ml) 10 mg IVP X1 ONE; Protocol Stop: 07/03/24 06:16 Last Admin: 07/03/24 06:04 Dose: Not Given Documented By: Non-Admin Reason: Patient Refused Ondansetron HCl (Ondansetron Inj 2 Mg/Ml Inj 2 Ml) 4 mg IV X1 ONE; Protocol Stop: 07/02/24 15:11 Last Admin: 07/02/24 16:05 Dose: 4 mg Documented By: JOSE A See above Consultations Consultation(s) initiated? (list below): No Diagnosis Differential diagnosis abdominal pain: abdominal pain, calculus of kidney, endometriosis and other (Cholelithiasis) Most likely diagnosis given after review of the tests above:: Abdominal pain Nausea and vomiting Admission Indicated Admission indicated?: not indicated Explain why admission is indicated or not indicated:: 1800: Patient signed out pending CT report and final disposition. Admission Request Was there a request for admission?: No Disposition Plan Disposition Plan: other (specify) (Patient signed out) Discharge Plan Plan Patient Disposition: HOME (Self Care) Patient condition on transfer: Stable Prescriptions/Referrals Prescriptions/Med Rec: New ondansetron 4 mg tablet,disintegrating 4 mg PO Q8H PRN (Reason: nausea and vomiting) Qty: 20 0RF No Action azithromycin [Zithromax] 250 mg tablet See Rx Instructions .ROUTE .COMPLEX Qty: 6 0RF Rx Instructions: take 500 mg today (day 1), then 250 mg for 4 days (days 2-5) promethazine-DM 6.25-15 mg/5 mL syrup 5 ml PO Q6H PRN (Reason: cough) Qty: 120 0RF metoclopramide HCl 10 mg tablet 10 mg PO BID PRN (Reason: nausea and vomiting) Qty: 10 0RF cephalexin 500 mg capsule 500 mg PO BID Qty: 6 0RF Referrals: Marek Bullock MD [Primary Care Provider] - In 1 week Problem List Clinical Impression: Intractable nausea and vomiting, Ovarian cyst, Sjogren syndrome, Abnormal weight loss Patient/Caregiver Discharge Instructions Education Materials: Sj?gren Syndrome, ED Ovarian Cyst Additional Instructions: The cause of your nausea and vomiting is uncertain. It is important that you follow-up with your specialists and regular doctor to workup your recurring nausea vomiting and also to address the 60 pound weight loss that you reported. If you are getting worse please return for reevaluation. Drink plenty of clear liquids and stay well-hydrated. Get a repeat ultrasound in 3-6 months. Clear liquid diet for the next 24-48 hours and advance your diet as tolerated. Return to the ED for any worsening symptoms, such as fever or if you're not tolerating PO, or for any other concerns. Print Language: Luxembourgish Stand Alone Forms: Patient Portal Info Letter
[2024-07-02 17:53] VITALS: BP 100/61; PULSE 93; RESP 12; O2SAT 100
--- NOTE | 2024-07-02 18:30 | PD.EDADDENDU ---
Emergency Room Addendum <Gricelda Bullock - Last Filed: 07/03/24 05:28> Addendum Narrative: 1814: Care assumed from Dr. Perrin, the previous shift emergency physician. Past medical, surgical, social and family history reviewed. Vitals and home medications reviewed. Results and treatment plan discussed. I will assume the care of the patient at this time and will follow the patient, pending CT abdomen pelvis results. Please refer to the emergency department record for history and examination from initial visit. Initial urinalysis was contaminated. Straight catheter was ordered. Repeat urinalysis is unremarkable. 0526: Patient states she still feels nauseated. She denies any vomiting or abdominal pain. She states she has a history of gallstones and is concerned. Reglan and US gallbladder ordered. 0600: Care signed out to Dr. Olmstead (emergency physician). Past medical, surgical, social and family history reviewed. Vitals and home medications reviewed. Results and treatment plan discussed. They will assume the care of the patient at this time and will follow the patient, pending US gallbladder. RADIOLOGY RESULTS: [facility] Report Signed Patient: VICTOR M ALLRED. Record#: [id number] Birthdate: 1995 Age/Sex: 28 / F Location: [facility] Attending Dr: Ordering Physician: Isabel [facility] Godfrey Date of Service: 07/02/24 Procedure(s): CT abdomen pelvis w con Accession Number(s): [id number] cc: Marek Bullock MD; Richi Del Real MD; Isabel JacobsWE[facility]ENTERCarolyn Godfrey~ Examination: CT abdomen with intravenous contrast CT pelvis with intravenous contrast 2-D coronal reconstructions 2-D sagittal reconstructions Date and time of exam:July 02, 2024 1736 hrs. Indications: Right lower abdominal pain onset today. CTDI: vol (mGy) 5.08 DLP: (mGycm) 289 Technique: Multiple axial sections of the abdomen and pelvis have been obtained. 64 slice high-resolution scanner used. 3 mm axial sections have been obtained, post intravenous injection 60 cc [id number] 2-D sagittal, coronal reconstructions obtained. Low dose protocols were performed. One or more of the following dose reduction techniques were used; automated exposure control, adjustment of the mA and/or KV according to patient size, use of iterative reconstruction technique. Findings: Severe diffuse fatty infiltration throughout the liver, marked hepatomegaly 23 cm Gallstones No definite thickening of the gallbladder wall Spleen is not enlarged No pancreatic or adrenal mass Mild diffuse edema involving the right kidney Normal appendix No bowel obstruction Septated bilateral adnexal cysts, 15 mm 14 mm on the left side, 18 mm 12 mm on the right side Minimal thickening gallbladder wall 3 mm Impression: Normal appendix Suspicious for acute right pyelonephritis Prominent hepatomegaly with severe diffuse fatty infiltration throughout the liver Prominent ovarian bilateral follicular cysts, consider pelvic sonography follow-up Dictated By: Richi Del Real MD Signed By: <Electronically signed by Richi Del Real MD in OV> 07/02/24 1801 [facility] Preliminary Report Draft Patient: VICTOR M ALLRED. Record#: [id number] Birthdate: 1995 Age/Sex: 28 / F Location: [facility] Attending Dr: Ordering Physician: Date of Service: Procedure(s): Accession Number(s): cc: ~ Pelvic ultrasound (transabdominal) with Doppler and wave Doppler spectral analysis. July 02, 2024 2358 hours Clinical history: 28-year-old possible bilateral ovarian cyst Technique: Real-time, grayscale, transabdominal pelvic ultrasound was performed using Duplex scanning including arterial inflow, venous outflow, color and spectral Doppler. Comparison: None. Findings: No evidence of intrauterine . The uterus is normal in size measuring 7.8 x 3.5 x 4.7 cm. The endometrium is unremarkable and measures 0.2 cm. The right ovary measures 4.7 x 2.6 x 3.5 cm, simple cysts noted, the largest measuring 2.5 x 2.0 x 2.6 cm. The left ovary measures 4.2 x 3.5 x 3.4 cm, simple cysts noted, the largest measures 2.2 x 2.0 x 1.7 cm. Both ovaries demonstrate color flow and spectral waveforms on Doppler evaluation. There is no adnexal mass. There is no free fluid on the submitted images. Impression: Unremarkable pelvic sonogram. Bilateral ovarian simple cysts, possibly follicles. Consider follow-up in 3 months. No evidence of ovarian torsion. Report Electronically Signed By: Geovanny Aburto 07/03/2024 2:24:50 AM <Sunni Pittman MD - Last Filed: 07/03/24 05:30> Addendum Narrative: 1814: Care assumed from Dr. Perrin, the previous shift emergency physician. Past medical, surgical, social and family history reviewed. Vitals and home medications reviewed. Results and treatment plan discussed. I will assume the care of the patient at this time and will follow the patient, pending CT abdomen pelvis results. Please refer to the emergency department record for history and examination from initial visit. Initial urinalysis was contaminated. Straight catheter was ordered. Repeat urinalysis is unremarkable. 0526: Patient states she still feels nauseated. She denies any vomiting or abdominal pain on my history however she did states she had abdominal pain when she was seen by Dr. Garcia. Patient states that she is not any better taking Zofran at home. I have offered her Reglan but this time she still concerned about the nausea. She states she has a history of gallstones and is concerned. 0545: US gallbladder ordered. 0600: Care signed out to Dr. Olmstead (emergency physician). Past medical, surgical, social and family history reviewed. Vitals and home medications reviewed. Results and treatment plan discussed. They will assume the care of the patient at this time and will follow the patient, pending US gallbladder. RADIOLOGY RESULTS: [facility] Report Signed Patient: VICTOR M ALLRED. Record#: [id number] Birthdate: 1995 Age/Sex: 28 / F Location: [facility] Attending Dr: Ordering Physician: Isabel ([facility])Carolyn Date of Service: 07/02/24 Procedure(s): CT abdomen pelvis w con Accession Number(s): [id number] cc: Marek Bullock MD; Richi Del Real MD; Isabel JacobsWE[facility]ENTERCarolyn Godfrey~ Examination: CT abdomen with intravenous contrast CT pelvis with intravenous contrast 2-D coronal reconstructions 2-D sagittal reconstructions Date and time of exam:July 02, 2024 1736 hrs. Indications: Right lower abdominal pain onset today. CTDI: vol (mGy) 5.08 DLP: (mGycm) 289 Technique: Multiple axial sections of the abdomen and pelvis have been obtained. 64 slice high-resolution scanner used. 3 mm axial sections have been obtained, post intravenous injection 60 cc [id number] 2-D sagittal, coronal reconstructions obtained. Low dose protocols were performed. One or more of the following dose reduction techniques were used; automated exposure control, adjustment of the mA and/or KV according to patient size, use of iterative reconstruction technique. Findings: Severe diffuse fatty infiltration throughout the liver, marked hepatomegaly 23 cm Gallstones No definite thickening of the gallbladder wall Spleen is not enlarged No pancreatic or adrenal mass Mild diffuse edema involving the right kidney Normal appendix No bowel obstruction Septated bilateral adnexal cysts, 15 mm 14 mm on the left side, 18 mm 12 mm on the right side Minimal thickening gallbladder wall 3 mm Impression: Normal appendix Suspicious for acute right pyelonephritis Prominent hepatomegaly with severe diffuse fatty infiltration throughout the liver Prominent ovarian bilateral follicular cysts, consider pelvic sonography follow-up Dictated By: Richi Del Real MD Signed By: <Electronically signed by Richi Del Real MD in OV> 07/02/24 1801 Teler[facility] Preliminary Report Draft Patient: VICTOR M ALLRED. Record#: [id number] Birthdate: 1995 Age/Sex: 28 / F Location: [facility] Attending Dr: Ordering Physician: Date of Service: Procedure(s): Accession Number(s): cc: ~ Pelvic ultrasound (transabdominal) with Doppler and wave Doppler spectral analysis. July 02, 2024 2358 hours Clinical history: 28-year-old possible bilateral ovarian cyst Technique: Real-time, grayscale, transabdominal pelvic ultrasound was performed using Duplex scanning including arterial inflow, venous outflow, color and spectral Doppler. Comparison: None. Findings: No evidence of intrauterine . The uterus is normal in size measuring 7.8 x 3.5 x 4.7 cm. The endometrium is unremarkable and measures 0.2 cm. The right ovary measures 4.7 x 2.6 x 3.5 cm, simple cysts noted, the largest measuring 2.5 x 2.0 x 2.6 cm. The left ovary measures 4.2 x 3.5 x 3.4 cm, simple cysts noted, the largest measures 2.2 x 2.0 x 1.7 cm. Both ovaries demonstrate color flow and spectral waveforms on Doppler evaluation. There is no adnexal mass. There is no free fluid on the submitted images. Impression: Unremarkable pelvic sonogram. Bilateral ovarian simple cysts, possibly follicles. Consider follow-up in 3 months. No evidence of ovarian torsion. Report Electronically Signed By: Geovanny Aburto 07/03/2024 2:24:50 AM Report Electronically Signed By: Geovanny Aburto 07/03/2024 2:24:50 AM 07/03/24 5:28 am Gricelda Graham
[2024-07-02 19:14] LABS: Collection Type, Urine Clean Catch
[2024-07-02 19:30] LABS: Bilirubin,Urine Negative (Negative); Blood,Urine 3+ (Negative); Clarity,Urine Turbid (Clear/Hazy); Color,Urine Yellow (Lt Yel-Yel); Culture Indicated,Urine Contaminated; Glucose, Urine Negative (Negative); Ketones,Urine Negative (Negative); Leukocyte Esterase,Urine Positive (Negative); Nitrite,Urine Negative (Negative); PH,Urine 6.5 (5.0-7.0); Protein,Urine 1+ (Neg - Trace); RBC,Urine 39 /hpf (0-3); Specific Gravity,Urine 1.039 (1.001-1.035); Squamous Epithelial Cell,Urine 35 /hpf (0-5); WBC,Urine 54 /hpf (0-5)
[2024-07-02 20:02] LABS: Collection Type, Urine Catheter
[2024-07-02 20:47] LABS: Bilirubin,Urine Negative (Negative); Blood,Urine Negative (Negative); Clarity,Urine Clear (Clear/Hazy); Color,Urine Yellow (Lt Yel-Yel); Culture Indicated,Urine Not Indicated; Glucose, Urine Negative (Negative); Ketones,Urine Negative (Negative); Leukocyte Esterase,Urine Negative (Negative); Nitrite,Urine Negative (Negative); Protein,Urine Trace (Neg - Trace); RBC,Urine 3 /hpf (0-3); Squamous Epithelial Cell,Urine < 1 /hpf (0-5); WBC,Urine < 1 /hpf (0-5)
--- NOTE | 2024-07-02 21:24 | XR_ITS ---
Examination: Pelvic ultrasound, transabdominal, complete Technique: Transabdominal ultrasound of the pelvis performed using grayscale imaging Date and time of exam: July 02, 2024 at 11:50 PM Indications: Vomiting, bilateral ovarian follicular cystic masses on CT examination yesterday Findings: Uterus 7.8 cm endometrial stripe 0.2 cm No uterine mass Right ovary 4.7 cm arterial flow small cysts, the largest 26 mm Left ovary 4.2 cm arterial flow multiple cysts, the largest 22 mm Impression: Small bilateral benign ovarian cysts
[2024-07-02 21:34] LABS: Amphetamine/Methamp Scrn,U Negative (Negative); Barbiturate Screen,Urine Negative (Negative); Benzodiazepines Screen,Urine Negative (Negative); Benzoylecgonine Screen, Ur Negative (Negative); Fentanyl Screen,Urine Negative (Negative); Opiate Screen,Urine Negative (Negative); THC Screen,Urine Negative (Negative)
[2024-07-03 00:57] VITALS: BP 105/64; PULSE 84; RESP 14; TEMP 37.1; O2SAT 100
[2024-07-03 02:08] VITALS: BP 101/61; PULSE 89; RESP 16; TEMP 36.8; O2SAT 98
--- NOTE | 2024-07-03 02:25 | PRELIM_ITS ---
Pelvic ultrasound (transabdominal) with Doppler and wave Doppler spectral analysis. July 02, 2024 2358 hours Clinical history: 28-year-old possible bilateral ovarian cyst Technique: Real-time, grayscale, transabdominal pelvic ultrasound was performed using Duplex scanning including arterial inflow, venous outflow, color and spectral Doppler. Comparison: None. Findings: No evidence of intrauterine . The uterus is normal in size measuring 7.8 x 3.5 x 4.7 cm. The endometrium is unremarkable and measures 0.2 cm. The right ovary measures 4.7 x 2.6 x 3.5 cm, simple cysts noted, the largest measuring 2.5 x 2.0 x 2.6 cm. The left ovary measures 4.2 x 3.5 x 3.4 cm, simple cysts noted, the largest measures 2.2 x 2.0 x 1.7 cm. Both ovaries demonstrate color flow and spectral waveforms on Doppler evaluation. There is no adnexal mass. There is no free fluid on the submitted images. Impression: Unremarkable pelvic sonogram. Bilateral ovarian simple cysts, possibly follicles. Consider follow-up in 3 months. No evidence of ovarian torsion. Report Electronically Signed By: Geovanny Aburto 07/03/2024 2:24:50 AM [EST]
[2024-07-03 04:33] VITALS: BP 110/63; PULSE 87; RESP 17; TEMP 36.8; O2SAT 99
--- NOTE | 2024-07-03 05:25 | XR_ITS ---
Examination: Abdomen sonogram, Limited INDICATION: History of acidosis with upper quadrant pain Date and time of exam: 07/03/2024, 7:27 AM Technique: Real-time menendez scale transabdominal sonographic images of the upper abdomen obtained. Findings: There is a mildly distended and measures 8.2 cm in length with multiple gallstones measuring up to 1.8 cm. Common bile duct is within normal limits. No evidence of gallbladder wall thickening. Pancreatic head appears normal. Liver is enlarged to 22.3 cm with diffuse fatty infiltration. No focal hepatic masses. The portal vein demonstrates normal hepatopedal flow. IVC appears patent. Impression: Cholelithiasis without ultrasound evidence of cholecystitis. Hepatomegaly with diffuse fatty infiltration. No focal hepatic masses
--- NOTE | 2024-07-03 07:13 | PD.EDNV ---
Nausea/Vomit./Diarrhea-RME/HPI General Chief complaint: Nausea/Vomiting/Diarrhea Stated complaint: NAUSEA / VOMITING / ABD PAIN X 2 WKS; HX GALLSTONE Time Seen by Provider: 07/02/24 14:50 Arrival date/time: 07/02/24 14:19 RME / HPI RME / HPI Narrative: 07/02/24 14:19 28-year-old female presents emergency department complaints of nausea vomiting abdominal pain history of anemia. I have greeted and performed a focused initial assessment of this patient. Initial appropriate labs ordered at this time. A comprehensive ED assessment and evaluation of the patient and analysis of all test and completion of medical decision making process will be conducted by additional ED provider. DR. YURIDIA HUBER ED EVALUATION 28 year old female with history of anemia and gallstones presents to the ED for complaint of abdominal pain today. Pain described as aching in sensation that is located most to the right upper quadrant and epigastric regions, rating as moderate. Accompanied by nausea, vomiting, and global weakness. Patient reports she has had abdominal pain with nausea and vomiting for several months, close to 1 year. However has noted it is worse in the last 2 days. States she has yet to consult with general surgeon. Denies fevers, chills, sweats. Denies chest pain, cough, shortness of breath. Denies blood in stool or vomit, diarrhea, constipation. Denies dysuria, urinary frequency and urgency. Patient mentioned her menses are normal and light . DR. DANA HUBER ED EVALUATION: 28 year old female with history of sjogren's syndrome presents to the ED for evaluation of nausea, vomiting, and abdominal pain beginning several months ago. States she has been followed by her fire equipment operator however has not conuslted with any other doctors regarding her symptoms. Patient additionally reports 60lb weight loss since October 2023. Tenant Relations Coordinator: Dr. Carroll in [place], [place]. Related Data Previous Rx's ?Medication ?Instructions ?Recorded azithromycin 250 mg tablet See Rx Instructions PO .COMPLEX #6 11/28/19 (Zithromax) tabs promethazine-DM 6.25 mg-15 mg/5 mL 5 ml PO Q6H PRN cough #120 mL 11/28/19 oral syrup cephalexin 500 mg capsule 500 mg PO BID #6 caps 06/26/24 metoclopramide HCl 10 mg tablet 10 mg PO BID PRN nausea and 06/26/24 vomiting #10 tabs ondansetron 4 mg disintegrating 4 mg PO Q8H PRN nausea and 07/03/24 tablet vomiting #20 tabs Allergies Allergy/AdvReac Type Severity Reaction Status Date / Time No Known Allergies Allergy Verified 07/02/24 14:23 Review of Systems Review of Systems Narrative Review of Systems: Constitutional: DENIES; Fevers Eyes: DENIES; Loss of vision Head/Ear/Nose: DENIES; Loss of hearing Throat: DENIES; Dysphagia Cardiovascular: DENIES; Chest pain, dyspnea or syncope Respiratory: DENIES; Shortness of breath Gastrointestinal: SEE HPI +nausea, vomiting, abdominal pain. DENIES; Rectal bleeding or melena. Genitourinary: DENIES; Dysuria (painful or difficult urination) Musculoskeletal: DENIES; Arthralgia (pain in a joint),; Skin: DENIES; Rash Neurological: DENIES; Loss of function or movement Psychiatric: DENIES; recent major life stressor, emotional problem, illicit drug use or abuse Endocrinology: SEE HPI + Weight change Hematologic/Lymphatic: DENIES; Abnormal bruising Allergic/Immunologic: DENIES; Urticaria (hives) Past Medical History Past Medical History CARDIAC: Negative Cardiac Disorders or Congestive Heart Failure RESPIRATORY: Negative Chronic Obstructive Pulmonary Disease (COPD) or Asthma GENITOURINARY: Negative Renal Disease ENDOCRINE: Negative Diabetes Mellitus Type 1 or Diabetes Mellitus Type 2 HEMATOLOGIC: Negative Sickle Cell Disease Social History SMOKING STATUS: Never smoker SUBSTANCE USE: does not use ED Exam Narrative Physical exam: Physical Exam: General: The vital signs were reviewed. Speech is a little dystonic patient relates this to the dry mouth from her Sjogren syndrome. The patient is non-toxic, in no apparent distress and appears healthy with a patent airway, no respiratory distress and has no apparent circulatory problems. Head & Scalp: Normocephalic, atraumatic. Face: Appears normal and is without lesions, deformity. Ears: Left external pinna appears normal. Right external pinna appears normal. Eyes: The sclera is anicteric. No obvious photophobia. The Left and Right Orbit/Lid/Conjunctiva appears normal without swelling, discoloration or injection. Nose: The nose is without deformity, discharge or tenderness; Throat: Appears normal. The mucous membranes are pink and moist without exudates, redness or mass seen. The tongue appears normal. Neck: The neck is supple and no apparent mass or adenopathy. Chest: The chest wall is normal in size and symmetry and has no chest wall tenderness or crepitus. The patient displays normal ventilator effort without retractions, accessory muscle use and has adequate air movement bilaterally with no wheezes and no rales. Cardiovascular: Regular rate and rhythm; No murmurs, rubs, or gallops; Gastrointestinal: The abdomen appears normal. No obvious hernias or mass. The abdomen is soft and benign, non-distended, with no pain, no guarding and no rebound tenderness. Bowel sounds are present and normal sounding. No CVA tenderness. Genitourinary: Back/Spine: Normal inspection Extremities/Musculoskeletal/lymphatic: The bilateral upper and lower extremities are warm. There is no evidence of arterial insufficiency. There is no evidence of venous insufficiency/edema. The patient spontaneously moves bilateral upper and lower extremities with no pain and no limitation of movement. There is no apparent, injury or trauma. Skin: The skin is warm, dry and intact. No rashes. No petechia. No purpura. No abnormal bruising. The color is appropriate with no cyanosis. Mental status/Psychiatric: Mental status is appropriate for age. The patient has no apparent delusions, visual hallucinations, no apparent audible hallucinations. The patient has no apparent suicidal thoughts/ideation and no apparent homicidal thoughts/ideation. Neurological: The patient is awake, alert, interactive, cordial, cooperative and is oriented to name and situation. The patient follows commands and answers historical question with no impairment. There is no visual disturbance apparent. The pupils are equal and reactive bilaterally with normal eye movements and no diplopia The bilateral upper and lower extremities have normal strength, normal range of motion and normal functioning. The gait, station and balance appear to be baseline with no acute change Course Quality Measures none Orders Category Date Time Status CT Screening NOW Care 07/02/24 15:10 Completed EKG (ED ONLY) *Do not use* NOW Care 07/02/24 15:09 Completed Insert IV NOW Care 07/02/24 15:10 Completed NPO STAT Care 07/02/24 15:09 Completed Occult Blood,Stool (Nursing) NOW Care 07/02/24 16:[address] abdomen pelvis w con Stat Exams 07/02/24 15:09 Completed EKG (ED Only) Stat Exams 07/02/24 15:09 Draft US gall bladder Stat Exams 07/03/24 05:25 Completed US pelvic complete Stat Exams 07/02/24 21:24 Completed CBC Stat Lab 07/02/24 15:25 Completed Comprehensive Metabolic Panel Stat Lab 07/02/24 15:25 Completed Drug Screen,Urine Stat Lab 07/02/24 18:48 Completed HCG,Qualitative Serum Stat Lab 07/02/24 15:25 Completed Lipase Stat Lab 07/02/24 15:25 Completed Magnesium Stat Lab 07/02/24 15:25 Completed Occult Blood, Stool (LAB) Stat Lab 07/02/24 16:20 Completed Prothrombin Time with INR Stat Lab 07/02/24 15:25 Completed Type and Screen Stat Lab 07/02/24 15:25 Completed UA, C/S IF [Urinalysis, C/S if Indicated] Stat Lab 07/02/24 18:48 Completed UA, C/S IF [Urinalysis, C/S if Indicated] Stat Lab 07/02/24 19:54 Completed Urinalysis Stat Lab 07/02/24 18:48 Completed Urinalysis Stat Lab 07/02/24 19:54 Completed Metoclopramide Inj [Reglan Inj] Med 07/03/24 06:15 Discontinued 10 mg IVP X1 ONE Ondansetron Inj [Zofran Inj] Med 07/02/24 15:10 Discontinued 4 mg IV X1 ONE Sodium Chloride 0.9% 1000 ml [Ns] 1,000 ml Med 07/02/24 15:10 Discontinued IV 999 mls/hr Sodium Chloride 0.9% 1000 ml [Ns] 1,000 ml Med 07/02/24 18:31 Discontinued IV 999 mls/hr Vital Signs Vital signs: Vital Signs Temperature 98.4 F 07/02/24 14:52 Pulse Rate 106 H 07/02/24 14:52 Respiratory Rate 18 07/02/24 14:52 Blood Pressure 91/62 07/02/24 14:52 Pulse Oximetry (%) 98 07/02/24 14:52 Oxygen Delivery Method Room Air 07/02/24 14:52 Pulse ox is 98% on room air which is adequate. Nausea/Vomiting/Diarrhea MDM Narrative MDM Narrative:: This patient came here yesterday and we started a whole new note today because patient has had 60 pounds weight loss has Sjogren's syndrome with chronic dry mouth and dry eyes. She is followed by Dr. Schaffer who is a fire equipment operator in [place]. Medical workup today feels a CT scan of the abdomen which was essentially negative. She has a chronic worsening anemia with a hemoglobin of 7.6 but she is having no shortness of breath or acute weakness with this. Sodium 135 potassium 3.6 chloride 102 CO2 22.1 BUN is 8 creatinine is 0.6 the magnesium is 2.1 bilirubin is 1.2 AST is slightly elevated 193 ALT is 36 hCG came back negative lipase was negative urine analysis came back essentially negative. Urine drug screen was negative. Patient believes her intractable nausea vomiting related to gallstones as she was having nausea vomiting for last couple months approximately been longer. An ultrasound was done today which again reveals cholelithiasis same as before but there is no evidence of acute cholecystitis. CT of the abdomen revealed no acute finding. They mention some questionable acute right pyelonephritis but the urine is unremarkable and she has no urinary symptoms and there is no obvious CVA tenderness. At the end of the day her intractable nausea vomiting is uncertain why she has had 60 pound weight loss is unclear. She was asked to eat and drink which she drank water and ate food and has no nausea vomiting and was observed in this department for a long period of time and feels good to go home. Evidently the intractable nausea vomiting must be intermittent or clearly has resolved for now. She does have a fire equipment operator and will follow-up with that doctor with a Sjogren's and infusions as needed. They can also further workup her weight loss and nausea vomiting.. Patient data External records reviewed:: [facility] previous records Clinical information provided by:: patient Social determinants that could affect healthcare access:: none Patient has the following chronic illnesses:: sjogren's syndrome How is presenting disease/condition affected by chronic disease/condition?: uneffected by Evaluation data The following diagnostics were reviewed and interpreted by me:: lab results and radiology exam(s) Lab and/or radiology exams considered but not ordered:: None Interpretation Summary: Ordering Physician: Isabel ([facility])Carolyn Date of Service: 07/02/24 Procedure(s): CT abdomen pelvis w con Accession Number(s): [id number] cc: Marek Bullock MD; Richi Del Real MD; Isabel ([facility])Carolyn~ Examination: CT abdomen with intravenous contrast CT pelvis with intravenous contrast 2-D coronal reconstructions 2-D sagittal reconstructions Date and time of exam:July 02, 2024 1736 hrs. Indications: Right lower abdominal pain onset today. CTDI: vol (mGy) 5.08 DLP: (mGycm) 289 Technique: Multiple axial sections of the abdomen and pelvis have been obtained. 64 slice high-resolution scanner used. 3 mm axial sections have been obtained, post intravenous injection 60 cc [id number] 2-D sagittal, coronal reconstructions obtained. Low dose protocols were performed. One or more of the following dose reduction techniques were used; automated exposure control, adjustment of the mA and/or KV according to patient size, use of iterative reconstruction technique. Findings: Severe diffuse fatty infiltration throughout the liver, marked hepatomegaly 23 cm Gallstones No definite thickening of the gallbladder wall Spleen is not enlarged No pancreatic or adrenal mass Mild diffuse edema involving the right kidney Normal appendix No bowel obstruction Septated bilateral adnexal cysts, 15 mm 14 mm on the left side, 18 mm 12 mm on the right side Minimal thickening gallbladder wall 3 mm Impression: Normal appendix Suspicious for acute right pyelonephritis Prominent hepatomegaly with severe diffuse fatty infiltration throughout the liver Prominent ovarian bilateral follicular cysts, consider pelvic sonography follow-up Dictated By: Richi Del Real MD Signed By: <Electronically signed by Richi Del Real MD in [place]> 07/02/24 1801 Ordering Physician: Sunni Pittman MD Date of Service: 07/02/24 Procedure(s): US pelvic complete Accession Number(s): [id number] cc: Marek Bullock MD; Richi Del Real MD; Sunni Pittman MD~ Examination: Pelvic ultrasound, transabdominal, complete Technique: Transabdominal ultrasound of the pelvis performed using grayscale imaging Date and time of exam: July 02, 2024 at 11:50 PM Indications: Vomiting, bilateral ovarian follicular cystic masses on CT examination yesterday Findings: Uterus 7.8 cm endometrial stripe 0.2 cm No uterine mass Right ovary 4.7 cm arterial flow small cysts, the largest 26 mm Left ovary 4.2 cm arterial flow multiple cysts, the largest 22 mm Impression: Small bilateral benign ovarian cysts Dictated By: Richi Del Real MD Signed By: <Electronically signed by Richi Del Real MD in [place]> 07/03/24 0452 Ordering Physician: Sunni Pittman MD Date of Service: 07/03/24 Procedure(s): US gall bladder Accession Number(s): [id number] cc: Gaurav Emanuel MD; Marek Bullock MD; Sunni Pittman MD~ Examination: Abdomen sonogram, Limited INDICATION: History of acidosis with upper quadrant pain Date and time of exam: 07/03/2024, 7:27 AM Technique: Real-time menendez scale transabdominal sonographic images of the upper abdomen obtained. Findings: There is a mildly distended and measures 8.2 cm in length with multiple gallstones measuring up to 1.8 cm. Common bile duct is within normal limits. No evidence of gallbladder wall thickening. Pancreatic head appears normal. Liver is enlarged to 22.3 cm with diffuse fatty infiltration. No focal hepatic masses. The portal vein demonstrates normal hepatopedal flow. IVC appears patent. Impression: Cholelithiasis without ultrasound evidence of cholecystitis. Hepatomegaly with diffuse fatty infiltration. No focal hepatic masses Dictated By: Gaurav Emanuel MD Signed By: <Electronically signed by Gaurav Emanuel MD in [place]> 07/03/24 0826 Medications / Prescriptions Medications / Prescriptions considered but not ordered:: None Medication administrations:: Medication Administration History Discontinued Medications Sodium Chloride (Ns) 1,000 mls @ 999 mls/hr IV .Q1H1M ONE Stop: 07/02/24 16:10 Last Infusion: 07/02/24 18:32 Dose: Infused Documented By: JOSE A Infusion: 07/02/24 17:25 Dose: Infused Documented By: Admin: 07/02/24 16:05 Dose: 999 mls/hr Documented By: JOSE A Sodium Chloride (Ns) 1,000 mls @ 999 mls/hr IV .Q1H1M ONE Stop: 07/02/24 19:31 Last Infusion: 07/02/24 19:47 Dose: Infused Documented By: Admin: 07/02/24 18:46 Dose: 999 mls/hr Documented By: JOSE A Metoclopramide HCl (Metoclopramide Inj 5 Mg/Ml Vial 2 Ml) 10 mg IVP X1 ONE; Protocol Stop: 07/03/24 06:16 Last Admin: 07/03/24 06:04 Dose: Not Given Documented By: Non-Admin Reason: Patient Refused Ondansetron HCl (Ondansetron Inj 2 Mg/Ml Inj 2 Ml) 4 mg IV X1 ONE; Protocol Stop: 07/02/24 15:11 Last Admin: 07/02/24 16:05 Dose: 4 mg Documented By: JOSE A See above Consultations Consultation(s) initiated? (list below): No Diagnosis Nausea Differential Diagnosis: food poisoning, gastroenteritis, drug-induced nausea and vomiting and dehydration Most likely diagnosis given after review of the tests above:: Intractable nausea and vomiting Ovarian cyst Sjogren syndrome Abnormal weight loss Admission Indicated Admission indicated?: not indicated Admission Request Was there a request for admission?: Yes Admission Attestation Admission request attestation: Discussed case with [] from Hospitalist service regarding admission. Discussed patients ED course, exam findings, labs, and radiology results. The Hospitalist [agrees,declines] to accept the patient for admission. Disposition Plan Disposition Plan: Discharge Discharge Attestation Discharge Attestation: The patient and all family members were given an opportunity to ask questions and understood the discharge instructions. Discharge instructions specifically effects, indications for sooner follow up or return to the emergency department, and the expected course of current diagnosis. Patient condition: Stable Discharge Plan Plan Patient Disposition: HOME (Self Care) Patient condition on transfer: Stable Prescriptions/Referrals Prescriptions/Med Rec: New ondansetron 4 mg tablet,disintegrating 4 mg PO Q8H PRN (Reason: nausea and vomiting) Qty: 20 0RF No Action azithromycin [Zithromax] 250 mg tablet See Rx Instructions .ROUTE .COMPLEX Qty: 6 0RF Rx Instructions: take 500 mg today (day 1), then 250 mg for 4 days (days 2-5) promethazine-DM 6.25-15 mg/5 mL syrup 5 ml PO Q6H PRN (Reason: cough) Qty: 120 0RF metoclopramide HCl 10 mg tablet 10 mg PO BID PRN (Reason: nausea and vomiting) Qty: 10 0RF cephalexin 500 mg capsule 500 mg PO BID Qty: 6 0RF Referrals: Marek Bullock MD [Primary Care Provider] - In 1 week Problem List Clinical Impression: Intractable nausea and vomiting, Ovarian cyst, Sjogren syndrome, Abnormal weight loss Patient/Caregiver Discharge Instructions Education Materials: Sj?gren Syndrome, ED Ovarian Cyst Additional Instructions: The cause of your nausea and vomiting is uncertain. It is important that you follow-up with your specialists and regular doctor to workup your recurring nausea vomiting and also to address the 60 pound weight loss that you reported. If you are getting worse please return for reevaluation. Drink plenty of clear liquids and stay well-hydrated. Get a repeat ultrasound in 3-6 months. Clear liquid diet for the next 24-48 hours and advance your diet as tolerated. Return to the ED for any worsening symptoms, such as fever or if you're not tolerating PO, or for any other concerns. Print Language: Yoruba Stand Alone Forms: Patient Portal Info Letter
== END 2024-07-03 15:30 | disposition home or self-care (01) ==
PROVIDERS: Emergency Medicine; Nurse Practitioner Primary Care; Emergency Provider Emergency Medicine; PCP Family Medicine
DX: K80.20 Calculus of gallbladder without cholecystitis without obstruction (principal); N83.292 Other ovarian cyst, left side; K76.0 Fatty (change of) liver, not elsewhere classified; N83.291 Other ovarian cyst, right side; M35.00 Sjogren syndrome, unspecified; D64.9 Anemia, unspecified; R63.4 Abnormal weight loss; Z68.1 Body mass index [BMI] 19.9 or less, adult
CPT/HCPCS: 36415; 74177; 76705; 76856; 80053; 80307; 81001; 82270; 83690; 83735; 84703; 85025; 85610; 86850; 86900; 86901; 93005; 96361; 96374; 99285; A4649; J2405; J7030; Q9967

== ENCOUNTER 2024-07-09 10:56 | Emergency (ER) | payer MEDICAID, SELFPAY ==
[2024-07-09] VITALS (13 sets, daily range): BP systolic 98–112; BP diastolic 63–74; PULSE 78–127; RESP 18; TEMP 36.6–37.7; O2SAT 98–100; BMI 19.5; BMI 19.7
--- NOTE | 2024-07-09 11:05 | EKG_ITS ---
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
--- NOTE | 2024-07-09 12:11 | PD.EDRME ---
Rapid Medical Screening Exam RME Arrival date/time: 07/09/24 10:56 28-year-old female history of storages disease presents to the emergency department with complaints of nausea vomiting generalized weakness was evaluated here last week. Sent here by PCP for second evaluation I have greeted and performed a focused initial assessment of this patient. Initial appropriate labs ordered at this time. A comprehensive ED assessment and evaluation of the patient and analysis of all test and completion of medical decision making process will be conducted by additional ED provider. n Chief Complaint: Nausea/Vomiting/Diarrhea Time Seen by Provider: 07/09/24 11:38 Vital signs: Vital Signs Temperature 99.8 F 07/09/24 11:02 Pulse Rate 127 H 07/09/24 11:02 Respiratory Rate 18 07/09/24 11:02 Blood Pressure 112/71 07/09/24 11:02 Pulse Oximetry (%) 100 07/09/24 11:02 Oxygen Delivery Method Room Air 07/09/24 11:02
[2024-07-09 12:32] LABS: Basophils % (Auto) 0 % (0-2.5); Eosinophils % (Auto) 0 % (0-10); Hematocrit 21.5 % (36.0-46.0); Immature Granulocytes % (Auto) 1 % (0-0); Immature Granulocytes Auto 0.07 Thou/mm3 (0.00-0.00); Lymphocytes # (Auto) 0.8 Thou/mm3 (1.0-4.8); Lymphocytes % (Auto) 9 % (10-50); Mean Corpuscular HGB Conc 32.1 g/dl (31.0-37.0); Mean Corpuscular Volume 81 fL (80-100); Monocytes # (Auto) 0.2 Thou/mm3 (0.0-0.8); Monocytes % (Auto) 2 % (0-12); Neutrophils # (Auto) 7.9 Thou/mm3 (1.8-7.7); Neutrophils % (Auto) 87 % (37-80); Nucleated Red Blood Cell % 0 /100 WBC (0); Platelet Count 333 Thou/mm3 (140-440); RDW Standard Deviation 72.3 fL (36.4-46.3); Red Blood Count 2.65 Miln/mm3 (4.00-5.20)
[2024-07-09 12:36] LABS: Hemoglobin 6.9 g/dL (12.0-16.0)
[2024-07-09 12:47] LABS: Alanine Aminotransferase 35 U/L (10-49); Albumin, Serum 2.4 gm/dL (3.5-5.0); Albumin/Globulin Ratio 0.5 (1.2-2.2); Alkaline Phosphatase 396 U/L (46-116); Anion Gap 8 (7-16); Aspartate Amino Transferase 216 U/L (0-34); BUN/Creatinine Ratio 14 Ratio (12-20); Bilirubin,Total 1.3 mg/dL (0.3-1.2); Blood Urea Nitrogen 7 mg/dL (9-23); Calcium 7.5 mg/dL (8.3-10.6); Calcium (Corrected) 8.8 mg/dL (8.5-10.1); Carbon Dioxide 24.1 mMol/L (20.0-31.0); Chloride 102 mMol/L (98-107); Creatinine (Component) 0.5 mg/dL (0.6-1.3); Estimated Creatinine Clearance 136.7 mL/min (>60); Globulin 4.6 gm/dL (2.3-3.5); Glucose 104 mg/dL (74-106); Lipase 27 U/L (12-53); Osmolality,Calculated 266 (275-295); Potassium 3.7 mMol/L (3.4-5.1); Sodium 134 mMol/L (136-145); eGFR > 60 See Note
[2024-07-09 13:27] LABS: Collection Type, Urine Clean Catch
[2024-07-09 13:38] LABS: HCG Qualitative,Urine Negative
[2024-07-09 13:59] LABS: Bacteria,Urine Rare; Bilirubin,Urine 1+ (Negative); Blood,Urine 2+ (Negative); Color,Urine Drk-Yellow (Lt Yel-Yel); Glucose, Urine Negative (Negative); Hyaline Casts,Urine < 1 /hpf (0-1); Ketones,Urine Negative (Negative); Leukocyte Esterase,Urine Positive (Negative); Nitrite,Urine Negative (Negative); Protein,Urine 2+ (Neg - Trace); RBC,Urine 8 /hpf (0-3); Specific Gravity,Urine 1.025 (1.001-1.035); Squamous Epithelial Cell,Urine 4 /hpf (0-5); Urobilinogen,Urine 12 mg/dL (0.0-1.0); WBC,Urine 4 /hpf (0-5)
[2024-07-09 14:00] LABS: Clarity,Urine Hazy (Clear/Hazy)
[2024-07-09 16:21] LABS: Path Review Blood Smear Sent to Pathologist
[2024-07-09] MEDS: SODIUM CHLORIDE 0.9% 1000 ML 1,000 ML 999 ML IV (17:32)
--- NOTE | 2024-07-09 18:06 | PD.EDADDENDU ---
Emergency Room Addendum Addendum Narrative: 1800: Care assumed from Dr. Otoole (emergency physician). Past medical, surgical, social and family history reviewed. Vitals and home medications reviewed. Results and treatment plan discussed. I will assume the care of the patient at this time and will follow the patient, pending
--- NOTE | 2024-07-09 18:07 | XR_ITS ---
Examination: CTA abdomen, with intravenous contrast. CTA pelvis, with intravenous contrast. 2-D sagittal and coronal reconstructions. 3-D reconstructions. Date and time of exam: July 09, 2024 1806 hours Indications: Gastrointestinal bleeding today CTDI vol (mgy) 7.6 DLP (MGycm) 348 Technique: Multiple CTA images, 2.0 mm slice thickness, obtained chest, abdomen, pelvis, with the high-resolution 64 slice scanner. 80 cc Isovue-370 is administered intravenously. Sagittal and coronal 2-D reconstructions are obtained. 3-D reconstructions, angiographic images are obtained. 3-D postprocessing, including vascular maximum intensity projections. Low dose protocols were performed. One or more of the following dose reduction techniques were used; automated exposure control, adjustment of the mA and/or KV according to patient size, use of iterative reconstruction technique. Findings: Prominent hepatomegaly, 23 cm with severe diffuse fatty infiltration throughout the liver No focal liver or splenic lesion Gallstones No pancreatic or adrenal mass No renal or ureteral calculi, no hydronephrosis 12 mm fat-containing hernia Normal appendix No bowel obstruction No diverticulitis Multiple septated bilateral small ovarian cysts No uterine mass No diverticulitis No nonspecific colitis or enteritis Urinary bladder intact Impression: Prominent hepatomegaly with severe diffuse fatty infiltration throughout the liver Cholelithiasis, negative for cholecystitis Normal appendix No bowel obstruction No abnormal contrast extravasation into gastrointestinal intact is noted 3-D angiographic images demonstrate no area of angiodysplasia
--- NOTE | 2024-07-09 18:16 | EDNOTE_ITS ---
Nausea/Vomit./Diarrhea-RME/HPI General Chief complaint: Nausea/Vomiting/Diarrhea Stated complaint: N/V X3 WEEKS; I THINK I HAVE A KIDNEY INFECTION. Time Seen by Provider: 07/09/24 11:38 Arrival date/time: 07/09/24 10:56 RME / HPI RME / HPI Narrative: 07/09/24 10:56 28-year-old female history of storages disease presents to the emergency department with complaints of nausea vomiting generalized weakness was evaluated here last week. Sent here by PCP for second evaluation I have greeted and performed a focused initial assessment of this patient. Initial appropriate labs ordered at this time. A comprehensive ED assessment and evaluation of the patient and analysis of all test and completion of medical decision making process will be conducted by additional ED provider. This section includes all my notes and documentations, including HPI, PE, and ED course. Julian Gómez MD HPI: 28 y/o female here with over a week history of nausea and vomiting, severe malaise and fatigue, back and abdominal pain (difficult to localize), and vaginal discharge. Patient was seen here last week. PCP today recommended more evaluation here because last week CT scan showed signs of pyelonephritis. No other complaints. ROS: All negative except as documented in HPI. Physical Exam: General:? Alert and oriented.? Appearance of malaise noted. Eyes:? Conjunctivae and lids clear.? EOMI.? PERRL. ENT:? No nasal congestion.? Pharynx normal.? Tympanic membrane normal bilaterally.??? Neck:? Supple.? No carotid bruit.? No JVD.?? Heart:? RRR.? Lungs:? No respiratory distress.? Good air movement.? No rhonchi, wheezing, rales.?? Abdomen:? Soft with diffuse tenderness, difficult to localize.? Normal bowel sounds.? No distension.? No rebound or guarding.?? Back:? No CVA tenderness.?? Legs:? No clubbing, cyanosis, edema.? Skin:? Warm and dry.?? Neuro:? Alert and oriented X 3.? Cranial Nerves II-XII grossly intact.? No peripheral motor deficits. Stool occult blood negative. I reviewed all diagnostic test results. My interpretation of the EKG is sinus tachycardia with no acute ST?T changes. My review of the abdominal CT report is cholelithiasis. Blood tests and urine tests remarkable for Hgb 6.9. Wet prep pending. At this point, diagnoses include Severe anemia, Vaginitis, Vomiting, and Gallstones. Treatment here included blood transfusion, Sodium Chloride, Ceftriaxone Sodium/Dextrose, Ketorolac Tromethamine, Morphine Sulfate, and Zofran. Significant improvement noted. Recommended more outpatient workup. Based on my best medical judgment, made decision no further evaluation or treatment indicated at this time. Patient understands and agrees to the discharge instructions customized and printed, see below. Discharge Instructions from Dr. Gómez: 1. After extensive evaluation, your diagnoses include: Severe anemia (blood loss) with unclear etiology. Gallstones. Vomiting. Vaginal discharge. 2. In case your blood loss is due to iron deficiency, increase food rich in iron. Such as red meat and egg yolks and seaweed. 3. You need gallbladder to help digest fatty foods. So to prevent future attacks, avoid all fatty and oily and greasy and buttery and dairy foods.? This usually means take out and fast food restaurants. Zofran for nausea/vomiting. For good hydration, increase oral fluid and maintain clear urine. If dark or yellow, increase oral fluid. Toradol and Tylenol with codeine for severe pain. 4. For your vaginal discharge, take Zithromax and Diflucan and Flagyl as pres cribed. Since you wanted to be treated for all causes of vaginal infections. No sexual activity until cleared by a doctor taking care of you. 5.. See a private doctor on 07/13/2024 for recheck and further care. Ask to review all test results and official radiology reports, to make sure you receive all necessary follow-ups and monitoring, including wet prep results. Ask for help seeing a general surgeon to discuss elective surgery of your gallbladder. To make sure there is no serious intra-abdominal condition, ask for help with more investigation not available here in the ER. Such as EGD or scoping the stomach, colonoscopy or scoping the colon, and referral to see bullet swaging machine operator. If needed, ask for a referral to see a blood specialist to figure out the cause of your severe blood loss. 6. Seek immediate medical care with intolerable pain, fever, or with any concerns. Julian Gómez MD Related Data Previous Rx's ?Medication ?Instructions ?Recorded azithromycin 250 mg tablet See Rx Instructions PO .COM PLEX #6 11/28/19 (Zithromax) tabs promethazine-DM 6.25 mg-15 mg/5 mL 5 ml PO Q6H PRN cou gh #120 mL 11/28/19 oral syrup cephalexin 500 mg capsule 500 mg PO BID #6 caps metoclopramide HCl 10 mg tablet 10 mg PO BID PRN nause a and 06/26/24 vomiting #10 tabs ondansetron 4 mg disintegrating 4 mg PO Q8H PRN nausea and 07/03/24 tablet vomiting #20 tabs acetaminophen 300 mg-codeine 30 mg 2 tab PO Q8H PRN pa in #20 tabs 07/10/24 tablet azithromycin 500 mg tablet 1,000 mg (2 x 500 mg) PO ON CE PM 1 07/10/24 (Zithromax) day #2 tabs fluconazole 200 mg tablet 200 mg PO QDAY 2 days #2 tab s 07/10/24 (Diflucan) ketorolac 10 mg tablet 10 mg PO Q8H PRN pain 5 days #10 07/10/24 tabs metronidazole 500 mg tablet 2,000 mg (4 x 500 mg) PO O NCE PM 07/10/24 #4 tabs ondansetron 4 mg disintegrating 4 mg PO TID PRN nausea and 07/10/24 tablet vomiting 30 days #10 tabs Allergies Allergy/AdvReac Type Severity Reaction Status Date / Time No Known Allergies Allergy Verified 07/09/24 11:03 Review of Systems Review of Systems Systems Reviewed: All systems reviewed, normal except as documented Narrative Review of Systems: refer to HPI above. Past Medical History Past Medical History HEMATOLOGIC: Positive Anemia Social History SMOKING STATUS: Never smoker SUBSTANCE USE: does not use ED Exam Narrative Physical exam: Refer to HPI above. Course Quality Measures none Orders Category Date Time Status CT Screening NOW Care 07/09/24 18:07 Completed EKG (ED ONLY) *Do not use* NOW Care 07/09/24 11:05 Completed Insert IV NOW Care 07/09/24 12:11 Completed Occult Blood,Stool (Nursing) NOW Care 07/09/24 18:04 Completed Transfuse,blood/blood products NOW Care 07/09/24 18:[address] angio abdomen pelvis Stat Exams 07/09/24 18:07 Completed EKG (ED Only) Stat Exams 07/09/24 11:05 Draft CBC Stat Lab 07/09/24 12:17 Completed Comprehensive Metabolic Panel Stat Lab 07/09/24 12:17 Completed HCG Qualitative,Urine Stat Lab 07/09/24 13:14 Completed Lipase Stat Lab 07/09/24 12:17 Completed Occult Blood, Stool (LAB) Stat Lab 07/09/24 23:00 Completed Path Review Blood Smear Stat Lab 07/09/24 12:17 Completed Type and Screen Stat Lab 07/09/24 17:25 Completed Urinalysis Stat Lab 07/09/24 13:14 Completed Wet Prep Stat Lab 07/09/24 23:32 Received prbc [Red Blood Cells] Stat Lab 07/09/24 17:25 Completed Ketorolac Inj [Toradol Inj] Med 07/09/24 18:08 Discontinued 30 mg IVP X1 ONE Morphine Inj Med 07/09/24 18:08 Discontinued 2 mg IVP X1 ONE Ondansetron Inj [Zofran Inj] Med 07/09/24 18:08 Discontinued 4 mg IV X1 ONE Sodium Chloride 0.9% 1000 ml [Ns] 1,000 ml Med 07/09/24 12:11 Discontinued IV 999 mls/hr cefTRIAXone/D5w 1gm IV premix [Rocephin/D5w 1gm IV Med 07/09/24 18:08 Discontinued premix] 1 gm in 50 ml IV X1 Vital Signs Vital signs: Vital Signs Temperature 99.8 F 07/09/24 11:02 Pulse Rate 127 H 07/09/24 11:02 Respiratory Rate 18 07/09/24 11:02 Blood Pressure 112/71 07/09/24 11:02 Pulse Oximetry (%) 100 07/09/24 11:02 Oxygen Delivery Method Room Air 07/09/24 11:02 Nausea/Vomiting/Diarrhea MDM Narrative MDM Narrative:: Scribe Attestation: IDarling, am scribing for and in the presence of Dr. Gómez. Provider Notation: Although this document has been carefully reviewed, there may still be some phonetic and other typographical errors. These errors are purely grammatical due to imperfections in the software program and should not be construed in any way to compromise the substance of the patient's medical care during this visit. Patient data External records reviewed:: [facility] previous records (prior ED records reviwed from 07/03/24. Patient was seen for Abnormal weight loss.) Clinical information provided by:: patient Social determinants that could affect healthcare access:: none Patient has the following chronic illnesses:: none How is presenting disease/condition affected by chronic disease/condition?: no chronic disease Evaluation data The following diagnostics were reviewed and interpreted by me:: lab results, radiology exam(s) and EKG tracing(s) Lab and/or radiology exams considered but not ordered:: None Interpretation Summary: Severe anemia, Vaginitis, Vomiting, and Gallstones. Medications / Prescriptions Medications / Prescriptions considered but not ordered:: None Medication administrations:: Medication Administration History Discontinued Medications Sodium Chloride (Ns) 1,000 mls @ 999 mls/hr IV .Q1H1M ONE Stop: 07/09/24 13:11 Last Infusion: 07/09/24 19:00 Dose: Infused Documented By: Admin: 07/09/24 17:32 Dose: 999 mls/hr Documented By: DO Ceftriaxone Sodium/Dextrose (Rocephin/D5w 1gm Iv Premix) 1 gm in 50 mls @ 100 mls/hr IV X1 ONE Stop: 07/09/24 18:37 Last Infusion: 07/09/24 19:33 Dose: Infused Documented By: Admin: 07/09/24 19:03 Dose: 100 mls/hr Documented By: DO Ketorolac Tromethamine (Ketorolac Inj 30 Mg/Ml Vial) 30 mg IVP X1 ONE Stop: 07/09/24 18:09 Last Admin: 07/09/24 19:04 Dose: 30 mg Documented By: DO Morphine Sulfate (Morphine Sulf Inj 10 Mg/Ml Vial) 2 mg IVP X1 ONE Stop: 07/09/24 18:09 Last Admin: 07/09/24 19:04 Dose: 2 mg Documented By: DO Ondansetron HCl (Ondansetron Inj 2 Mg/Ml Inj 2 Ml) 4 mg IV X1 ONE; Protocol Stop: 07/09/24 18:09 Last Admin: 07/09/24 19:03 Dose: 4 mg Documented By: DO Sodium Chloride, Ceftriaxone Sodium/Dextrose, Ketorolac Tromethamine, Morphine Sulfate, Ondansetron HCl Consultations Consultation(s) initiated? (list below): No Diagnosis Nausea Differential Diagnosis: food poisoning, gastroenteritis, clostridium difficile infection, drug-induced nausea and vomiting, dehydration and other (GI bleed, biliary colic, GERD, PUD, gastritis) Most likely diagnosis given after review of the tests above:: Severe anemia, Vaginitis, Vomiting, Gallstones Admission Indicated Admission indicated?: not indicated Explain why admission is indicated or not indicated:: With significant improvement, there was no indication for admission. Admission Request Was there a request for admission?: No Disposition Plan Disposition Plan: Discharge Discharge Attestation Discharge Attestation: The patient and all family members were given an opportunity to ask questions and understood the discharge instructions. Discharge instructions specifically effects, indications for sooner follow up or return to the emergency department, and the expected course of current diagnosis. Patient condition: Stable Discharge Plan Plan Patient Disposition: HOME (Self Care) Prescriptions/Referrals Prescriptions/Med Rec: New acetaminophen-codeine 300-30 mg tablet 2 tab PO Q8H MDD 6 PRN (Reason: pain) Qty: 20 0RF ketorolac 10 mg tablet 10 mg PO Q8H PRN (Reason: pain) 5 Days Qty: 10 0RF ondansetron 4 mg tablet,disintegrating 4 mg PO TID PRN (Reason: nausea and vomiting) 30 Days Qty: 10 0RF azithromycin [Zithromax] 500 mg tablet 1,000 mg PO ONCE PM 1 Days Qty: 2 0RF metronidazole 500 mg tablet 2,000 mg PO ONCE PM Qty: 4 0RF fluconazole [Diflucan] 200 mg tablet 200 mg PO QDAY 2 Days Qty: 2 0RF No Action azithromycin [Zithromax] 250 mg tablet See Rx Instructions .ROUTE .COMPLEX Qty: 6 0RF Rx Instructions: take 500 mg today (day 1), then 250 mg for 4 days (days 2-5) promethazine-DM 6.25-15 mg/5 mL syrup 5 ml PO Q6H PRN (Reason: cough) Qty: 120 0RF metoclopramide HCl 10 mg tablet 10 mg PO BID PRN (Reason: nausea and vomiting) Qty: 10 0RF cephalexin 500 mg capsule 500 mg PO BID Qty: 6 0RF ondansetron 4 mg tablet,disintegrating 4 mg PO Q8H PRN (Reason: nausea and vomiting) Qty: 20 0RF Referrals: Marek Bullock MD [Primary Care Provider] - In 1 week Problem List Clinical Impression: Severe anemia, Vaginitis, Vomiting, Gallstones Patient/Caregiver Discharge Instructions Discharge Activity: activity as tolerated Education Materials: ED Anemia Type Not Specified, ED Gallstones with Biliary Colic, ED Vomiting (Adult) Additional Instructions: Discharge Instructions from Dr. Gómez: 1. After extensive evaluation, your diagnoses include: Severe anemia (blood loss) with unclear etiology. Gallstones. Vomiting. Vaginal discharge. 2. In case your blood loss is due to iron deficiency, increase food rich in iron. Such as red meat and egg yolks and seaweed. 3. You need gallbladder to help digest fatty foods. So to prevent future attacks, avoid all fatty and oily and greasy and buttery and dairy foods.? This usually means take out and fast food restaurants. Zofran for nausea/vomiting. For good hydration, increase oral fluid and maintain clear urine. If dark or yellow, increase oral fluid. Toradol and Tylenol with codeine for severe pain. 4. For your vaginal discharge, take Zithromax and Diflucan and Flagyl as prescribed. Since you wanted to be treated for all causes of vaginal infections. No sexual activity until cleared by a doctor taking care of you. 5.. See a private doctor on 07/13/2024 for recheck and further care. Ask to review all test results and official radiology reports, to make sure you receive all necessary follow-ups and monitoring, including wet prep results. Ask for help seeing a general surgeon to discuss elective surgery of your gallbladder. To make sure there is no serious intra-abdominal condition, ask for help with more investigation not available here in the ER. Such as EGD or scoping the stomach, colonoscopy or scoping the colon, and referral to see bullet swaging machine operator. If needed, ask for a referral to see a blood specialist to figure out the cause of your severe blood loss. 6. Seek immediate medical care with intolerable pain, fever, or with any concerns. Print Language: Turkish Stand Alone Forms: [employer]ie Award Info., Patient Portal Info Letter
--- NOTE | 2024-07-09 18:29 | PC.NURSE ---
PT TO CT
[2024-07-09] MEDS: ONDANSETRON INJ 2 MG/ML INJ 2 ML 4 MG IV (19:03)
[2024-07-09] MEDS: cefTRIAXone/D5w 1gm IV premix 1 GM/50 ML BAG IV (19:03)
[2024-07-09] MEDS: MORPHINE SULF INJ 10 MG/ML VIAL 2 MG IVP (19:04)
[2024-07-09] MEDS: KETOROLAC INJ 30 MG/ML VIAL IVP (19:04)
--- NOTE | 2024-07-09 20:03 | PC.NURSE ---
1st UPRBC infusing well without adverse reaction noted. C. Monitor shows NSR without ventricular ectopy noted. Resp easy and even. Mom at bedside.
[2024-07-10] VITALS: BP 105/73; PULSE 82; RESP 18; TEMP 36.6; O2SAT 99
[2024-07-10 00:06] LABS: OBS Developer Lot # 551749; OBS Performed By estre4; OBS QC OK? Yes; Occult Blood, Stool Negative (Negative)
[2024-07-10 00:51] VITALS: BP 111/78; PULSE 74; RESP 18; TEMP 36.6; O2SAT 99
[2024-07-10 00:53] VITALS: BP 111/78; PULSE 74; RESP 18; TEMP 36.6; O2SAT 99
[2024-07-10 02:12] VITALS: BP 102/69; PULSE 84; RESP 18; TEMP 36.8; O2SAT 98
== END 2024-07-10 02:28 | disposition home or self-care (01) ==
PROVIDERS: Nurse Practitioner Primary Care; Emergency Provider Emergency Medicine; PCP Family Medicine
DX: D64.9 Anemia, unspecified (principal); N76.0 Acute vaginitis; K80.20 Calculus of gallbladder without cholecystitis without obstruction; R00.0 Tachycardia, unspecified
CPT/HCPCS: 36415; 36430; 74174; 80053; 81001; 81025; 81514; 82270; 83690; 85025; 86850; 86900; 86901; 86923; 87210; 93005; 96361; 96365; 96375; 99285; A4649; J0696; J1885; J2270; J2405; J7030; P9016; Q9967

== ENCOUNTER 2024-12-12 12:27 | Emergency (ER) | payer MEDICAID, SELFPAY ==
[2024-12-12 12:43] VITALS: BP 130/90; PULSE 107; RESP 19; TEMP 37.1; O2SAT 95; BMI 22.6
--- NOTE | 2024-12-12 12:58 | XR_ITS ---
Examination: Abdomen sonogram, Limited Date and time of exam: December 12, 2024, 1319 hrs. Indications: Abdominal distention today Technique: Real-time menendez scale transabdominal sonographic images of the abdomen obtained. Findings: Significant ascitic fluid Impression: Significant ascitic fluid
--- NOTE | 2024-12-12 12:58 | XR_ITS ---
Examination: AP chest single view Technique: AP portable upright chest single view Date and time: December 12, 2024, 1313 hrs., Comparison June 25, 2024 Indications: Difficulty breathing today. Findings: Moderate chronic heart failure pattern Enlarged cardiac contour with prominent vascular congestion and edema at the lung bases with large pleural effusions Dialysis catheter satisfactory position Impression: Moderate heart failure with significant fluid effusions
--- NOTE | 2024-12-12 12:59 | EDNOTE_ITS ---
ED Abdominal Pain RME/HPI General Chief Complaint: Abdominal Pain Stated complaint: I NEED EMERGENCY PARACENTESIS AND DIALYSIS Time seen by provider: 12/12/24 12:49 Arrival date/time: 12/12/24 12:27 RME / HPI RME / HPI narrative: 29-year-old female patient with significant history of end-stage liver disease, end-stage renal disease, was admitted into [facility], for more than 2 weeks, had 5 cycle of hemodialysis, last hemodialysis last , and 2 session of paracentesis last done last week also. Came here requesting for emergency paracentesis and dialysis. Patient had a Port-A-Cath on the right chest wall. Patient is complaining of abdominal distention, discomfort, and mild shortness of breath. No fever no other complaint noted. 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 Related Data Previous Rx's ?Medication ?Instructions ?Recorded azithromycin 250 mg tablet See Rx Instructions PO .COM PLEX #6 11/28/19 (Zithromax) tabs promethazine-DM 6.25 mg-15 mg/5 mL 5 ml PO Q6H PRN cou gh #120 mL 11/28/19 oral syrup cephalexin 500 mg capsule 500 mg PO BID #6 caps metoclopramide HCl 10 mg tablet 10 mg PO BID PRN nause a and 06/26/24 vomiting #10 tabs ondansetron 4 mg disintegrating 4 mg PO Q8H PRN nausea and 07/03/24 tablet vomiting #20 tabs acetaminophen 300 mg-codeine 30 mg 2 tab PO Q8H PRN pa in #20 tabs 07/10/24 tablet metronidazole 500 mg tablet 2,000 mg (4 x 500 mg) PO O NCE PM 07/10/24 #4 tabs Allergies Allergy/AdvReac Type Severity Reaction Status Date / Time No Known Allergies Allergy Verified 12/12/24 12:29 Review of Systems Review of Systems Narrative Review of Systems: Review of system reviewed and within normal limits except mentioned in HPI ED Exam Narrative Physical exam: VITAL SIGNS: Reviewed. GENERAL APPEARANCE: Alert and interactive, follows commands, no acute distress, cachectic HEAD AND FACE: Non-traumatic. ENT: PERRL, pink conjunctivitis, eyelid no trauma, Mucous membrane moist. NECK: Supple, nontender, no nuchal rigidity. CHEST: No tenderness, no crepitus, no paradoxical movement, no retractions. Right chest wall dialysis catheter intact LUNGS: Clear, well ventilated, symmetric, no rales, no wheezing, no ronchi, no stridor, good breath sounds bilaterally. HEART: Regular rate, regular rhythm, no murmur, no gallops. ABDOMEN: Soft, positive bowel sounds, abdominal distention, no guarding, nontender, no rebound, no masses, positive fluid wave test RECTAL: Deferred. GENITAL: Deferred. NEUROLOGICAL: Gross motor function intact sensory function intact, Appropriate for age. MUSCULOSKELETAL: low back nontender, full range of motion. EXTREMITIES: Nontender, full range of motion. SKIN: Color pink, dry, no rash, no lacerations, no abrasions, no contusions. LYMPHATICS: Deferred. Course Quality Measures none Orders Category Date Time Status Consent [Obtain Written Consent For:] .ONCE Care 12/12/24 14:17 Active US abdomen limited Stat Exams 12/12/24 12:58 Completed XR chest 1V Stat Exams 12/12/24 12:58 Completed CBC Stat Lab 12/12/24 13:05 Completed Comprehensive Metabolic Panel Stat Lab 12/12/24 13:05 Completed Partial Thromboplastin Time Stat Lab 12/12/24 13:05 Completed Prothrombin Time with INR Stat Lab 12/12/24 13:05 Completed Albumin Human 25% Ivpb [Albuminar-25 Ivpb] Med 12/12/24 15:37 Active 12.5 gm in 50 ml IV X1 Albumin Human 25% Ivpb [Albuminar-25 Ivpb] Med 12/12/24 16:37 Active 12.5 gm in 50 ml IV X1 Vital Signs Vital signs: Vital Signs Temperature 98.7 F 12/12/24 12:43 Pulse Rate 107 H 12/12/24 12:43 Respiratory Rate 19 12/12/24 12:43 Blood Pressure 130/90 H 12/12/24 12:43 Pulse Oximetry (%) 95 12/12/24 12:43 Oxygen Delivery Method Room Air 12/12/24 12:43 Abdominal Pain MDM MDM Narrative MDM Narrative:: 29-year-old female patient with significant history of end-stage liver disease, end-stage renal disease, was admitted into [facility], for more than 2 weeks, had 5 cycle of hemodialysis, last hemodialysis last , and 2 session of paracentesis last done last week also. Came here requesting for emergency paracentesis and dialysis. Patient had a Port-A-Cath on the right chest wall. Patient is complaining of abdominal distention, discomfort, and mild shortness of breath. No fever no other complaint noted. 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 Patient's laboratory workup is significant for hemoglobin of 8.3, hematocrit of 25.3 WBC count of 7.5 patient's creatinine was noted to be 4.0, potassium was normal chest x-ray showed no pneumonia. Ultrasound abdomen showed large amount of abdominal ascites. I spoke with garment alteration examiner on-call Dr Slater, who told me to do paracentesis and patient does not need emergency dialysis today. Patient can do dialysis Saturday or Saturday. Paracentesis was done by IM residents, see their procedure notes. Were able to remove 6.5 L of ascitic fluid. Patient received albumin 25 g IV. Patient stable for discharge home Patient data External records reviewed:: None Clinical information provided by:: patient Social determinants that could affect healthcare access:: none Patient has the following chronic illnesses:: Hepatorenal failure, history of Sjogren's disease, history of lupus How is presenting disease/condition affected by chronic disease/condition?: exacerbated by Evaluation data The following diagnostics were reviewed and interpreted by me:: lab results and radiology exam(s) Lab and/or radiology exams considered but not ordered:: None Interpretation Summary: See results MDM Medications / Prescriptions Medications or Prescriptions considered but not ordered:: None Medication administrations:: Medication Administration History Albumin Human (Albuminar-25 Ivpb) 12.5 gm in 50 mls @ 50 mls/hr IV X1 ONE Stop: 12/12/24 16:36 Last Admin: 12/12/24 16:04 Dose: 50 mls/hr Documented By: GALEN Albumin Human (Albuminar-25 Ivpb) 12.5 gm in 50 mls @ 50 mls/hr IV X1 ONE Stop: 12/12/24 17:36 Last Admin: 12/12/24 16:05 Dose: 50 mls/hr Documented By: GALEN Albumin Consultations Consultation(s) initiated? (list below): No Diagnosis Differential diagnosis abdominal pain: abdominal pain and other (Abdominal ascites, hepatorenal failure,) Most likely diagnosis given after review of the tests above:: Hepatorenal failure, abdominal ascites ESRD Admission Indicated Admission indicated?: not indicated Explain why admission is indicated or not indicated:: Stable Admission Request Was there a request for admission?: No Disposition Plan Disposition Plan: Discharge Discharge Attestation Discharge Attestation: The patient and all family members were given an opportunity to ask questions and understood the discharge instructions. Discharge instructions specifically effects, indications for sooner follow up or return to the emergency department, and the expected course of current diagnosis. Patient condition: Stable Discharge Plan Plan Patient Disposition: HOME (Self Care) Discharge Disposition comment: stavle Prescriptions/Referrals Prescriptions/Med Rec: No Action azithromycin [Zithromax] 250 mg tablet See Rx Instructions .ROUTE .COMPLEX Qty: 6 0RF Rx Instructions: take 500 mg today (day 1), then 250 mg for 4 days (days 2-5) promethazine-DM 6.25-15 mg/5 mL syrup 5 ml PO Q6H PRN (Reason: cough) Qty: 120 0RF metoclopramide HCl 10 mg tablet 10 mg PO BID PRN (Reason: nausea and vomiting) Qty: 10 0RF cephalexin 500 mg capsule 500 mg PO BID Qty: 6 0RF ondansetron 4 mg tablet,disintegrating 4 mg PO Q8H PRN (Reason: nausea and vomiting) Qty: 20 0RF acetaminophen-codeine 300-30 mg tablet 2 tab PO Q8H MDD 6 PRN (Reason: pain) Qty: 20 0RF metronidazole 500 mg tablet 2,000 mg PO ONCE PM Qty: 4 0RF Referrals: No Primary/Family,Physician [Primary Care Provider] - In 1 week Problem List Clinical Impression: Hepatorenal failure, Abdominal ascites Patient/Caregiver Discharge Instructions Discharge Activity: activity as tolerated Education Materials: ED Ascites Additional Instructions: Thank you for the opportunity for serving you today. You are stable for discharged . You are advised to: Follow-up with your PCP in 1 to 2 days Please call the dialysis center this coming Saturday otherwise if you cannot wait do your schedule on Saturday Return to ED for worsening of symptoms Print Language: Turkish Stand Alone Forms: Torie Award Info., Patient Portal Info Letter FEDERICO/THEA Supervising Physician FEDERICO/THEA Supervising Physician: MD Eusebia
[2024-12-12 13:19] LABS: Basophils # (Auto) 0.3 Thou/mm3 (0.0-0.2); Basophils % (Auto) 1 % (0-2.5); Eosinophils # (Auto) 0.1 Thou/mm3 (0.0-0.5); Eosinophils % (Auto) 0 % (0-10); Hematocrit 25.3 % (36.0-46.0); Immature Granulocytes Auto 0.25 Thou/mm3 (0.00-0.00); Lymphocytes # (Auto) 1.5 Thou/mm3 (1.0-4.8); Lymphocytes % (Auto) 5 % (10-50); Mean Corpuscular HGB Conc 32.8 g/dl (31.0-37.0); Mean Corpuscular Hemoglobin 29.7 pg (25.0-35.0); Mean Corpuscular Volume 91 fL (80-100); Monocytes # (Auto) 1.4 Thou/mm3 (0.0-0.8); Monocytes % (Auto) 5 % (0-12); Neutrophils # (Auto) 24.1 Thou/mm3 (1.8-7.7); Neutrophils % (Auto) 88 % (37-80); Nucleated Red Blood Cell # 0.00 Thou/mm3 (0.00-0.00); Nucleated Red Blood Cell % 0 /100 WBC (0); Platelet Count 263 Thou/mm3 (140-440); RDW Standard Deviation 69.3 fL (36.4-46.3); Red Blood Count 2.79 Miln/mm3 (4.00-5.20); White Blood Count 27.5 Thou/mm3 (3.6-11.0)
[2024-12-12 13:29] LABS: INR 1.2 (0.9-1.3); Partial Thromboplastin Time 29.3 Seconds (22.0-36.0); Prothrombin Time 12.4 Seconds (9.0-12.2)
[2024-12-12 13:36] LABS: Alanine Aminotransferase 23 U/L (10-49); Albumin, Serum 3.2 gm/dL (3.5-5.0); Albumin/Globulin Ratio 1.0 (1.2-2.2); Alkaline Phosphatase 495 U/L (46-116); Anion Gap 13 (7-16); Aspartate Amino Transferase 113 U/L (0-34); BUN/Creatinine Ratio 5 Ratio (12-20); Bilirubin,Total 1.0 mg/dL (0.3-1.2); Blood Urea Nitrogen 21 mg/dL (9-23); Calcium 7.7 mg/dL (8.3-10.6); Calcium (Corrected) 8.3 mg/dL (8.5-10.1); Carbon Dioxide 24.9 mMol/L (20.0-31.0); Chloride 104 mMol/L (98-107); Creatinine (Component) 4.0 mg/dL (0.6-1.3); Estimated Creatinine Clearance 17.8 mL/min (>60); Globulin 3.1 gm/dL (2.3-3.5); Glucose 91 mg/dL (74-106); Osmolality,Calculated 286 (275-295); Potassium 3.5 mMol/L (3.4-5.1); Sodium 142 mMol/L (136-145); Total Protein 6.3 gm/dL (5.7-8.2); eGFR 15 See Note
[2024-12-12 14:19] VITALS: BP 134/96; PULSE 112; RESP 16; TEMP 36.9; O2SAT 95
[2024-12-12 14:21] LABS: Hemoglobin 8.3 g/dL (12.0-16.0)
[2024-12-12] MEDS: ALBUMIN HUMAN 25% IVPB 12.5 GM/50 ML BTL IV ×2 (16:04→16:05)
[2024-12-12 16:58] VITALS: BP 122/85; PULSE 99; RESP 17; TEMP 37.1; O2SAT 96
--- NOTE | 2024-12-12 17:48 | ESOP_ITS ---
<Statement entered by James Laws MD - 12/13/24 17:55> As co-signing physician, I was present and available for consult prn. I concur with the plan and care as documented by the midlevel provider. PROCEDURES: Procedure Date / Time 12/12/24 5128 Procedure Narrative Procedure Narrative: INDICATION: Ascites PROCEDURE: Paracentesis for therapeutic purposes Ultrasound used to miguel location: Yes CONSENT: Procedure indication as well as risks and benefits were discussed. Patient demonstrated understanding and consented. PROCEDURE SUMMARY: A time-out was performed. My hands were washed immediately prior to the procedure. Surgical cap, mask with protective eyewear, sterile gown, and sterile gloves throughout the procedure. The area was cleansed and draped in usual sterile fashion using chlorhexidine scrub. The right lower abdomen was prepped and draped in a sterile fashion using chlorhexidine scrub. 1% lidocaine was used to numb the skin, soft tissue and peritoneum. The paracentesis catheter was inserted and advanced with negative pressure until light straw colored fluid was aspirated. The catheter was then connected to the vaccutainer and 5 liters of additional ascitic fluid were drained. The catheter was removed and no leaking was noted. A bandaid was placed over the puncture wound. The patient tolerated the procedure well without any immediate complications. Estimated blood loss was 0 mL. Entire procedure was supervised by resident Dr. Blankenship and ER physician, Dr. Laws. Haley Araujo, PGY-1 Paracentesis Indication: other Informed consent obtained: from patient Time out done, and the following verified: correct patient Procedure: therapeutic paracentesis Location: RLQ Local anesthetic used: lidocaine 1% Amount of anesthesia used (mL): 10 Bedside ultrasound used: yes, Ascites confirmed and location marked Preparation: sterile prep and drape Amount of fluid obtained (mL): 4 Fluid: clear EBL(ml): 0 Post procedure exam: awake, alert Patient tolerated procedure: well Complications: none Procedure comment: I supervised the paracentesis performed by Dr. Araujo. Please see her note for details.
== END 2024-12-12 18:38 | disposition home or self-care (01) ==
PROVIDERS: Nurse Practitioner Family; Emergency Provider Family Medicine
DX: K76.7 Hepatorenal syndrome (principal); K72.10 Chronic hepatic failure without coma; R18.8 Other ascites; N18.6 End stage renal disease; Z99.2 Dependence on renal dialysis
CPT/HCPCS: 49083; 36415; 71045; 76705; 80053; 85025; 85610; 85730; 96365; 96366; 99284; P9047

== ENCOUNTER 2024-12-31 14:10 | Inpatient (IN) | payer MEDICAID, SELFPAY ==
[2024-12-31] VITALS (12 sets, daily range): BP systolic 107–116; BP diastolic 63–87; PULSE 115–160; RESP 14–20; TEMP 36.8–37.2; O2SAT 92–96; BMI 24.5
--- NOTE | 2024-12-31 14:57 | EKG_ITS ---
[facility] Test Date: 2024-12-31 Pat Name: VICTOR M ALLRED Department: Room: - Gender: Female [employer]: : 1995 Requested By: Gus Felix (BREANNE) Order Number: [id number] Reading MD: Gus Felix (ETIOLOGY TEACHER) Measurements Intervals [place] Rate: 126 P: 15 OK: 132 QRS: 34 QRSD: 78 T: 28 QT: 334 QTc: 485 Interpretive Statements SINUS TACHYCARDIA LOW QRS VOLTAGE IN PRECORDIAL LEADS [QRS DEFLECTION < 1.0 mV IN CHEST LEADS] ABNORMAL RHYTHM ECG Compared to ECG 07/09/2024 11:09:31 Low QRS voltage now present Short OK interval no longer present T-wave abnormality no longer present /store/S0/[id number]/[id number].pdf
--- NOTE | 2024-12-31 14:57 | XR_ITS ---
Examination: Ultrasound-guided paracentesis Abdominal sonogram limited Date and time of exam: December 31, 2024, 1546 hours INDICATIONS: Cirrhosis, increasing ascites abdominal distention this week Informed consent provided. A timeout was completed verifying correct patient, procedure, site, positioning, and special adequate movement if applicable. Technique: Multiple sonographic images of the abdomen have been obtained. Appropriate area for paracentesis was marked. Local anesthesia is obtained with 1% lidocaine. Yueh catheter is successfully introduced. Findings: Abdominal sonographic images demonstrate sufficient ascitic fluid for paracentesis. After placing the Yueh catheter, 6375 cc of fluid were successfully removed. During and after completion of the procedure the patient appear in satisfactory and stable condition with no complications observed. Estimated blood loss 0 cc Impression: Abdominal ascites Successful ultrasound-guided paracentesis as described above
--- NOTE | 2024-12-31 14:58 | PD.EDRME ---
Rapid Medical Screening Exam RME Arrival date/time: 12/31/24 14:10 29-year-old female presents to emergency department today requesting paracentesis patient reports generalized weakness Chief Complaint: General Adult/Misc Complain Vital signs: Vital Signs Temperature 98.4 F 12/31/24 14:38 Pulse Rate 125 H 12/31/24 14:38 Respiratory Rate 20 12/31/24 14:38 Blood Pressure 112/76 12/31/24 14:38 Pulse Oximetry (%) 95 12/31/24 14:38 Oxygen Delivery Method Room Air 12/31/24 14:38
[2024-12-31 15:40] LABS: INR 1.2 (0.9-1.3); Partial Thromboplastin Time 31.6 Seconds (22.0-36.0); Prothrombin Time 12.7 Seconds (9.0-12.2)
[2024-12-31 15:45] LABS: Alanine Aminotransferase 25 U/L (10-49); Albumin, Serum 2.6 gm/dL (3.5-5.0); Albumin/Globulin Ratio 0.6 (1.2-2.2); Alkaline Phosphatase 720 U/L (46-116); Anion Gap 12 (7-16); Aspartate Amino Transferase 138 U/L (0-34); BUN/Creatinine Ratio 10 Ratio (12-20); Bilirubin,Total 1.1 mg/dL (0.3-1.2); Blood Urea Nitrogen 9 mg/dL (9-23); Calcium 8.0 mg/dL (8.3-10.6); Calcium (Corrected) 9.1 mg/dL (8.5-10.1); Carbon Dioxide 27.2 mMol/L (20.0-31.0); Chloride 101 mMol/L (98-107); Creatinine (Component) 0.9 mg/dL (0.6-1.3); Estimated Creatinine Clearance 75.4 mL/min (>60); Globulin 4.1 gm/dL (2.3-3.5); Glucose 90 mg/dL (74-106); Osmolality,Calculated 278 (275-295); Potassium 3.0 mMol/L (3.4-5.1); Sodium 140 mMol/L (136-145); Total Protein 6.7 gm/dL (5.7-8.2); Troponin I < 0.002 ng/mL (0.0-0.045); eGFR > 60 See Note
[2024-12-31 16:04] LABS: HCG,Qualitative Serum Negative
--- NOTE | 2024-12-31 16:15 | PC.NURSE ---
Pt. Called back to have vitals re-taken. no response x1 @5304. Lobby and outside checked
[2024-12-31 16:21] LABS: Basophils # (Auto) 0.1 Thou/mm3 (0.0-0.2); Basophils % (Auto) 0 % (0-2.5); Eosinophils # (Auto) 0.2 Thou/mm3 (0.0-0.5); Eosinophils % (Auto) 1 % (0-10); Hematocrit 21.3 % (36.0-46.0); Immature Granulocytes Auto 0.31 Thou/mm3 (0.00-0.00); Lymphocytes # (Auto) 1.5 Thou/mm3 (1.0-4.8); Lymphocytes % (Auto) 6 % (10-50); Mean Corpuscular HGB Conc 32.9 g/dl (31.0-37.0); Mean Corpuscular Hemoglobin 30.3 pg (25.0-35.0); Mean Corpuscular Volume 92 fL (80-100); Monocytes # (Auto) 1.4 Thou/mm3 (0.0-0.8); Monocytes % (Auto) 5 % (0-12); Neutrophils # (Auto) 22.9 Thou/mm3 (1.8-7.7); Neutrophils % (Auto) 87 % (37-80); Nucleated Red Blood Cell # 0.00 Thou/mm3 (0.00-0.00); Nucleated Red Blood Cell % 0 /100 WBC (0); Platelet Count 303 Thou/mm3 (140-440); RDW Standard Deviation 69.2 fL (36.4-46.3); Red Blood Count 2.31 Miln/mm3 (4.00-5.20); White Blood Count 26.4 Thou/mm3 (3.6-11.0)
[2024-12-31 16:49] LABS: Hemoglobin 7.0 g/dL (12.0-16.0)
--- NOTE | 2024-12-31 17:57 | PC.NURSE ---
NAx3 1615, 1634, 1727.
--- NOTE | 2024-12-31 18:55 | EDNOTE_ITS ---
ED General RME/HPI General Chief complaint: General Adult/Misc Complain Stated complaint: DIFF BREATHING, PAIN NEEDS PARACENTESIS Arrival date/time: 12/31/24 14:10 RME / HPI RME / HPI narrative: 12/31/24 14:10 29-year-old female presents to emergency department today requesting paracentesis patient reports generalized weakness Dr. Kaur?s Main ED Evaluation: 29yo female with history of autoimmune disease, recent hospitalization at [facility] with liver failure requiring paracentesis and found to have evidence of renal failure in which a port was placed and is now on dialysis, now presents with abdominal distention and shortness of breath. No fever, vomiting, or diarrhea. Patient has become progressively weak over the last several weeks and currently at home with home health tending basic needs. Related Data Previous Rx's ?Medication ?Instructions ?Recorded azithromycin 250 mg tablet See Rx Instructions PO .COM PLEX #6 11/28/19 (Zithromax) tabs promethazine-DM 6.25 mg-15 mg/5 mL 5 ml PO Q6H PRN cou gh #120 mL 11/28/19 oral syrup cephalexin 500 mg capsule 500 mg PO BID #6 caps metoclopramide HCl 10 mg tablet 10 mg PO BID PRN nause a and 06/26/24 vomiting #10 tabs ondansetron 4 mg disintegrating 4 mg PO Q8H PRN nausea and 07/03/24 tablet vomiting #20 tabs acetaminophen 300 mg-codeine 30 mg 2 tab PO Q8H PRN pa in #20 tabs 07/10/24 tablet metronidazole 500 mg tablet 2,000 mg (4 x 500 mg) PO O NCE PM 07/10/24 #4 tabs Allergies Allergy/AdvReac Type Severity Reaction Status Date / Time No Known Allergies Allergy Verified 12/31/24 14:13 Review of Systems Review of Systems Systems Reviewed: All systems reviewed, normal except as documented Past Medical History Past Medical History CARDIAC: Negative Cardiac Disorders or Congestive Heart Failure RESPIRATORY: Negative Chronic Obstructive Pulmonary Disease (COPD) or Asthma GENITOURINARY: Negative Renal Disease ENDOCRINE: Negative Diabetes Mellitus Type 1 or Diabetes Mellitus Type 2 HEMATOLOGIC: Positive Anemia; Negative Sickle Cell Disease Social History SMOKING STATUS: Never smoker SUBSTANCE USE: does not use ED Exam Narrative Physical exam: GENERAL APPEARANCE: alert and oriented x 4, frail, pale, in mild respiratory distress VITALS: All vitals were reviewed and the pulse ox is 96% on room air, which is normal according to my interpretation. HEENT: Normocephalic, atraumatic; pupils equal, round, reactive to light; EOMI; mucous membranes pink, moist; oropharynx clear NECK: Supple LUNGS: Lung sounds diminished bilaterally HEART: Regular rate, regular rhythm; normal S1, S2; no murmurs ABDOMEN: non distended; scaphoid (s/p paracentesis today), soft, mild tenderness, no guarding or peritoneal findings BACK: no CVA tenderness EXTREMITIES: atraumatic; no edema NEUROLOGIC: awake; alert and oriented x4; cranial nerves II-XII grossly intact; no focal sensory or motor deficits PSYCHIATRIC: appropriate mood and affect SKIN: warm, dry, pale; no rashes Course Course Course Narrative: CXR is ordered for determining the etiology of shortness of breath. Quality Measures none Orders Category Date Time Status EKG (ED ONLY) *Do not use* NOW Care 12/31/24 14:57 Completed EKG (ED Only) Stat Exams 12/31/24 14:57 Draft US paracentesis abd w/image Stat Exams 12/31/24 14:57 Completed XR chest 1V portable Stat Exams 12/31/24 19:21 Completed Blood Culture (Lab) Stat Lab 12/31/24 21:40 Ordered CBC Stat Lab 12/31/24 15:12 Completed Comprehensive Metabolic Panel Stat Lab 12/31/24 15:12 Completed HCG,Qualitative Serum Stat Lab 12/31/24 15:12 Completed Lactic Acid [Lactate (Lactic Acid)] Stat Lab 12/31/24 21:40 Ordered Partial Thromboplastin Time Stat Lab 12/31/24 15:12 Completed Prothrombin Time with INR Stat Lab 12/31/24 15:12 Completed Troponin I Stat Lab 12/31/24 15:12 Completed UA, C/S IF [Urinalysis, C/S if Indicated] Stat Lab 12/31/24 20:32 Ordered POTASSIUM CHL 10 mEq IVPB [Kcl Ivpb] Med 12/31/24 19:44 Discontinued 10 meq in 100 ml IV Q1H Potassium Chloride [K-Dur] Med 12/31/24 19:42 Discontinued 40 meq PO X1 ONE Vital Signs Vital signs: Vital Signs Temperature 98.4 F 12/31/24 14:38 Pulse Rate 125 H 12/31/24 14:38 Respiratory Rate 20 12/31/24 14:38 Blood Pressure 112/76 12/31/24 14:38 Pulse Oximetry (%) 95 12/31/24 14:38 Oxygen Delivery Method Room Air 12/31/24 14:38 Critical Care Time Critical Care Time Critical Care Time: Yes Total Critical Care Time (min.): 35 Attestation: The high probability of sudden, clinically significant deterioration in the pat ient?s condition required the highest level of my preparedness to intervene urgently. The services I provided to this patient were to treat and/or prevent clinically significant deterioration. Services included the following: chart data review, reviewing nursing notes and/or old charts, documentation time, data processing consultant collaboration regarding findings and treatment options, medication orders and m anagement, direct patient care, vital sign assessments and ordering, interpreting and reviewing diagnostic studies and lab tests. Aggregate critical care time includes only time during which I was engaged in work directly related to the patient?s care, as described above, whether at bedside or elsewhere in the Emergency Department. It did not include time spent performing other reported procedures or the services of residents, students, nurses or physician assistants. Discharge Plan Plan Patient Disposition: Admit Acute Care w/in Hospital Prescriptions/Referrals Prescriptions/Med Rec: No Action azithromycin [Zithromax] 250 mg tablet See Rx Instructions .ROUTE .COMPLEX Qty: 6 0RF Rx Instructions: take 500 mg today (day 1), then 250 mg for 4 days (days 2-5) promethazine-DM 6.25-15 mg/5 mL syrup 5 ml PO Q6H PRN (Reason: cough) Qty: 120 0RF metoclopramide HCl 10 mg tablet 10 mg PO BID PRN (Reason: nausea and vomiting) Qty: 10 0RF cephalexin 500 mg capsule 500 mg PO BID Qty: 6 0RF ondansetron 4 mg tablet,disintegrating 4 mg PO Q8H PRN (Reason: nausea and vomiting) Qty: 20 0RF acetaminophen-codeine 300-30 mg tablet 2 tab PO Q8H MDD 6 PRN (Reason: pain) Qty: 20 0RF metronidazole 500 mg tablet 2,000 mg PO ONCE PM Qty: 4 0RF Problem List Clinical Impression: Ascites, S/P abdominal paracentesis, Bilateral pleural effusion, Bilateral pneumonia Patient/Caregiver Discharge Instructions Education Materials: Paracentesis Dc Print Language: Belarusian Stand Alone Forms: Torie Award Info., Patient Portal Info Letter MDM Narrative MDM hospital course (for use when minimal MDM required): Scribe Attestation: 12/31/24 - Gricelda Frye am scribing for and in the presence of Dr. Kaur. 29yo female with history of autoimmune disease, recent hospitalization at [facility] with liver failure requiring paracentesis and found to have evidence of renal failure in which a port was placed and is now on dialysis, now presents with abdominal distention and shortness of breath. No fever, vomiting, or diarrhea. Please see PE findings. Lab markers demonstrated elevated WBC count 26, HnH 7/21, normal Plt count 303, left shift without bandemia. Chemistries showed K 3.0, normal renal function, elevated Alkaline Phosphatase 720, normal total bilirubin of 1.1, troponin undetected, HCG negative. EKG demonstrates sinus tachycardia without ST-T changes. CXR demonstrates bilateral pleural effusions with overlying pneumonia. Cultures were obtained, antibiotics administered, and hospitalist consulted and agrees to admit. Dx: recurrent ascites s/p paracentesis, bilateral pleural effusions 2/2 recurrent ascites, bilateral pnuemonia Clinical Information Provided by: patient Medical Records reviewed [facility] (Per chart review, patient was seen here on 12/12/24 for abdominal ascites.) Meds/Rx considered, not ordered None Labs/Rad/Tests considered, not ordered None Chronic Illness/Social Conditions Explain: Hx end-stage liver disease EKG Interpretation EKG #1: EKG Interpretation: EKG done at 1503, sinus tachycardia, rate of 126, no acute pathological ST segment changes, no ectopy, normal intervals, normal axis, according to my interpretation. Labs Labs: interpreted by me Imaging Imaging interpretation: interpreted by me Imaging Interpretation(s): [facility] Signed Patient: VICTOR M ALLRED Med. Record#: [id number] Birthdate: 1995 Age/Sex: 29 / F Location: [facility] Attending Dr: Ordering Physician: Isdiro CAZARES)Gus NP Date of Service: 12/31/24 Procedure(s): US paracentesis abd w/image Accession Number(s): [id number] cc: Isidro (BREANNE),Gus CLERICAL CAR CHECKER; Richi Del Real MD~ Examination: Ultrasound-guided paracentesis Abdominal sonogram limited Date and time of exam: December 31, 2024, 1546 hours INDICATIONS: Cirrhosis, increasing ascites abdominal distention this week Informed consent provided. A timeout was completed verifying correct patient, procedure, site, positioning, and special adequate movement if applicable. Technique: Multiple sonographic images of the abdomen have been obtained. Appropriate area for paracentesis was marked. Local anesthesia is obtained with 1% lidocaine. Yueh catheter is successfully introduced. Findings: Abdominal sonographic images demonstrate sufficient ascitic fluid for paracentesis. After placing the Yueh catheter, 6375 cc of fluid were successfully removed. During and after completion of the procedure the patient appear in satisfactory and stable condition with no complications observed. Estimated blood loss 0 cc Impression: Abdominal ascites Successful ultrasound-guided paracentesis as described above Dictated By: Richi Del Real MD Signed By: <Electronically signed by Richi Del Real MD in OV> 12/31/24 1726 [facility] Signed Patient: VICTOR M ALLRED. Record#: [id number] Birthdate: 1995 Age/Sex: 29 / F Location: [facility] Attending Dr: Ordering Physician: Owen Krueger DO Date of Service: 12/31/24 Procedure(s): XR chest 1V portable Accession Number(s): [id number] cc: Owen Krueger DO; Richi Del Real MD; NO PRIMARY/FAMILY,PHYSICIAN~ EXAMINATION: AP chest single view TECHNIQUE: AP portable semiupright chest single view Date and time: December 31, 2024, 1933 hours, comparison 12/12/2024 INDICATIONS: Shortness of breath today. FINDINGS: Mild heart failure Mild enlargement cardiac contour with prominent vascular congestion and moderate to large bilateral pleural effusions Pneumonia in the mid and lower lung zones. Right internal jugular dialysis catheter satisfactory position. IMPRESSION: Mild heart failure Significant pneumonia in the mid and lower lung zones with large bilateral pleural effusions Dictated By: Richi Del Real MD Signed By: <Electronically signed by Richi Del Real MD in OV> 12/31/242043 Medication Administration(s) none Medication Administration History Discontinued Medications Potassium Chloride (Kcl Ivpb) 10 meq in 100 mls @ 100 mls/hr IV Q1H NATHALY Stop: 12/31/24 21:43 Last Admin: 12/31/24 20:22 Dose: 100 mls/hr Documented By: DT Potassium Chloride (Potassium Chloride 20 Meq Tabcr) 40 meq PO X1 ONE Stop: 12/31/24 19:43 Last Admin: 12/31/24 20:23 Dose: Not Given Documented By: DT Non-Admin Reason: unable to take pills per pt Consultations/Discussions re: Management Consult #1: Date/time: 12/31/24 9:41 pm Physician, specialty, service, details: Discussed case with the resident physician, attending Dr. Rios from Hospitalist service regarding admission. Discussed patients ED course, exam findings, labs, and radiology results. The Hospitalist agrees to accept the patient for admission. Diagnosis Differential Diagnosis ED Complaint MDM: worsening liver disease, dehydration, electrolyte abnormality
--- NOTE | 2024-12-31 19:21 | XR_ITS ---
EXAMINATION: AP chest single view TECHNIQUE: AP portable semiupright chest single view Date and time: December 31, 2024, 1933 hours, comparison 12/12/2024 INDICATIONS: Shortness of breath today. FINDINGS: Mild heart failure Mild enlargement cardiac contour with prominent vascular congestion and moderate to large bilateral pleural effusions Pneumonia in the mid and lower lung zones. Right internal jugular dialysis catheter satisfactory position. IMPRESSION: Mild heart failure Significant pneumonia in the mid and lower lung zones with large bilateral pleural effusions
[2024-12-31] MEDS: POTASSIUM CHL 10 mEq IVPB 10 MEQ/100 ML BAG 100 MEQ IV ×2 (20:22→23:49)
[2024-12-31 22:00] LABS: Lactate (Lactic Acid) 3.4 mMol/L (0.4-2.0)
--- NOTE | 2024-12-31 23:19 | ESHP_ITS ---
<Statement entered by Dejuan Rios MD - 01/01/25 06:01> I have discussed and was present for the essential components of the history, physical examination, diagnosis, and treatment plan with the resident. I agree with the patient's care as documented by the resident and amended herein by me. Dejuan Rios MD FACP. Documentation for date of: 12/31/24 HPI History of Present Illness Chief complaint: shortness of breath History of present illness: This is a 29-year-old female with past medical history of lupus nephritis, Sjogren syndrome, Supa's, on regular dialysis presented to the ED with complaints of shortness of breath and chest tightness. Earlier today 12/31 she had paracentesis at [facility]( approx 6L fluid removed). She has been experiencing this shortness of breath , chest tightness,dull left sided chest pain radiating to the shoulders 9/10 on a scale associated with palpitations since today evening which prompted her to the ED visit.she complains of occasional dry cough since paracentesis. She denies any diaphoresis,nausea,vomiting ,abdominal pain , pain on inspiration giddiness,any sputum. ED Visit: BP 117/77, pulse rate 125, respiratory 18, temperature 99F, saturating 95% at room atmosphere. Pertinent labs are: Hemoglobin 7, hematocrit 21.3, WBC 26.4, platelet 303, neutrophils 87%, potassium 3 ,calcium 8 ,AST 138, ALP 720 ,albumin 2.6 ,Pro-Dada 1.54 ,lactic acid 3.4, PT 12.7 Imaging chest x-ray shows bilateral pleural effusions and opacites in middle and lower lobes. Past medical history: History of pulmonary embolism in July was on Eliquis until November History of lupus nephritis diagnosed in November on prednisone. Undergoes dialysis 3 times a week. Past surgical History: Cholecystectomy was done 5 months ago. Family history: Not relevant Allergic history: No known allergies. Social history: Denies any alcohol or smoking Review of Systems Review of Systems Systems Reviewed: All systems reviewed, normal except as documented Exam Vital Signs Temp Pulse Resp BP Pulse Ox O2 Del Method 98.9 F 120 H 17 114/78 95 Room Air 12/31/24 21:07 12/31/24 21:07 12/31/24 21:07 12/31/24 21:07 12/31/24 21:07 12/31/24 21:07 Narrative Exam GENERAL: NAD, AAOx3 HEENT: Moist mucosa. Eyes open, symmetrical, & clear CARDIO: Rapid regular rhythm Noted. No Murmurs. PULM:occasional cough No noted dyspnea CTA B/L, no R/W/R GI: Abdomen soft, nondistended. SKIN/MSK/EXT:Malar rash over the face, No wounds/rashes/amputations, no pain on palpation.Edema on B/L legs above ankle 2+. Pedal pulses present B/L NEURO: AAOx3, no focal neuro deficits, able to move all 4 extremities Results: Labs 01/01/25 04:25 01/01/25 04:25 Labs: Short CBC 12/31/24 Range/Units 15:12 WBC 26.4 H (3.6-11.0) Thou/mm3 Hgb 7.0 L (12.0-16.0) g/dL Hct 21.3 L* (36.0-46.0) % Plt Count 303 D (140-440) Thou/mm3 BMP 12/31/24 15:12 Sodium 140 Potassium 3.0 L Chloride 101 Carbon Dioxide 27.2 BUN 9 Creatinine 0.9 Glucose 90 Calcium 8.0 L Cardiac Enzymes 12/31/24 Range/Units 15:12 Troponin I < 0.002 (0.0-0.045) ng/mL Liver Function 12/31/24 Range/Units 15:12 Total Bilirubin 1.1 (0.3-1.2) mg/dL AST 138 H (0-34) U/L ALT 25 (10-49) U/L Alkaline Phosphatase 720 H (46-116) U/L Albumin 2.6 L (3.5-5.0) gm/dL Quality Measures Quality Measures none Medications Home Medications and Allergies Allergies Allergy/AdvReac Type Severity Reaction Status Date / Time No Known Allergies Allergy Verified 12/31/24 14:13 Visit Medications Acetaminophen (Acetaminophen 325 Mg Tablet) 650 mg PO Q6H PRN PRN Reason: Fever >100.4 Stop: 01/30/25 23:04 Heparin Sodium (Porcine) (Heparin Sod Inj 5000 Unit/Ml Vial) 5,000 unit SC BID NATHALY Stop: 01/15/25 08:59 Ondansetron HCl (Ondansetron Inj 2 Mg/Ml Inj 2 Ml) 4 mg IVP Q6H PRN; Protocol PRN Reason: NAUSEA OR VOMITING Stop: 01/30/25 23:04 Sennosides (Senna Tablet) 1 tab PO QDAY PRN; Protocol PRN Reason: constipation Stop: 01/30/25 23:04 Discontinued Medications Potassium Chloride (Kcl Ivpb) 10 meq in 100 mls @ 100 mls/hr IV Q1H NATHALY Stop: 12/31/24 21:43 Last Infusion: 12/31/24 21:22 Dose: Infused Ceftriaxone Sodium/Dextrose (Rocephin/D5w 1gm Iv Premix) 1 gm in 50 mls @ 100 mls/hr IV X1 ONE Stop: 12/31/24 22:13 Doxycycline Hyclate 100 mg/ (Sodium Chloride) 100 mls @ 100 mls/hr IV X1 ONE Stop: 12/31/24 22:44 Potassium Chloride (Potassium Chloride 20 Meq Tabcr) 40 meq PO X1 ONE Stop: 12/31/24 19:43 Last Admin: 12/31/24 20:23 Dose: Not Given Assessment & Plan Plan This is a 29-year-old female with past medical history of lupus nephritis, Sjogren syndrome, Supa's, on regular dialysis presented with shortness of breath and chest pain.she was admitted for shortness of breath secondary to B/L Pleural effusion. #commmunity acquired pneumonia # B/L Pleural effusions #Ascites s/p paracentesis shortness of Breath, Tachycardia CA:125bpm Chest Xray - B/L pleural effusions and opacities in middle and lower lobes CT chestshows B/L pleural effusions Paracentesis was done earlier today removed 6.5L 1 dose of Doxy and ceftriaxone was given in ED. - ordered ceftriaxone and Doxycycline - US Thoracentesis and pleural fluid studies ordered. - albumin given after paracentesis #symptomatic Anemia Hb-7,shortness of breath/ chest pain EKG negative for acute st changes troponins negativex2 PRBC ordered and transfusing f/u post transfusion h/H #Leukocytosis likely in the setting of prednisone use # Hypokalemia Potassium-3 Kcl given in the ED # H/o Pulmonary embolism Not on Elliquis, completed tx -SCD. # Lupus Nephritis. On dialysis On prednisone at home. Continue on Home medications. Not on HCQ, mycophenolate. # Sjogren syndrome # ? Autoimmune Hepatitis -Dry mouth on examination. -Consider Pilocarpine. Code status: Full DVT prophylaxis: SCD Diet: Regular Diet Lines: PIV Supplemental O2: none Disposition: Med -Tele I discussed this my case with my senior Dr. Duncan and my attending Dr. Oakley. Kenyetta Whitlock MD- PGY1.
[2024-12-31] MEDS: cefTRIAXone/D5w 1gm IV premix 1 GM/50 ML BAG IV (23:57)
[2025-01-01] VITALS (30 sets, daily range): BP systolic 101–119; BP diastolic 69–84; PULSE 109–181; RESP 14–94; TEMP 36.5–37.7; O2SAT 92–99; BMI 17.3; BMI 17.2
--- NOTE | 2025-01-01 00:27 | XR_ITS ---
Examination: CT chest, without intravenous contrast. Sagittal and coronal 2-D reconstructions. Exam date and time: January 09, 2025, 0255 hours INDICATIONS: Shortness of breath today CTDI:vol (mGy) 5.66 DLP: (mGycm) 186 Technique: Multiple 3.0 mm axial sections of the chest to been obtained. Bone and lung density settings are obtained. Sagittal and coronal 2-D reconstructions have been obtained. Low dose protocols were performed. One or more of the following dose reduction techniques were used; automated exposure control, adjustment of the mA and/or KV according to patient size, use of iterative reconstruction technique. Findings: No thoracic aortic aneurysmal dilatation Pulmonary artery segments are not enlarged Mild right hilar lymphadenopathy Severe right lung and prominent left base pneumonia with moderate bilateral pleural effusions No pneumothorax Significant hepatomegaly with severe diffuse fatty infiltration throughout the liver Absent gallbladder No pancreatic mass Kidneys partially visualized no hydronephrosis Mild osteopenia IMPRESSION: Severe bilateral pneumonia Hepatomegaly with severe diffuse fatty infiltration throughout the liver
[2025-01-01 00:37] LABS: Troponin I < 0.002 ng/mL (0.0-0.045)
[2025-01-01] MEDS: DOXYCYCLINE INJ 100 MG in SODIUM CHLORIDE 0.9% (POP) 100 ML IV ×3 (00:48→21:32)
[2025-01-01 01:01] LABS: Reflex Lactate? Y
[2025-01-01 01:14] LABS: Procalcitonin 1.54 ng/ml (0.0-0.49)
[2025-01-01 01:19] LABS: Lactic Acid, 3 HR 3.2 mMol/L (0.4-2.0)
--- NOTE | 2025-01-01 03:35 | PRELIM_ITS ---
CT scan of the chest without intravenous contrast (axial sections with sagittal and coronal reformats) January 01, 2025 0255 hours Clinical History: r/o pleural effusions Comparison: No prior study is available for comparison. Findings: There is a dense consolidation in the lateral segment of the right middle lobe and basal segments of the bilateral lower lobes with patent air bronchogram. There are patchy ground-glass opacities in the right upper and right middle lobes. Cgquz-[id number]-[id number] bilateral pleural effusions. No evidence of pneumothorax. The mediastinum demonstrates no evidence of mass or lymphadenopathy. The thoracic aorta is unremarkable. There is no pericardial effusion. The osseous structures are unremarkable. Fatty infiltration of the liver is noted. The gallbladder is surgically absent. The other visualized upper abdominal viscera are unremarkable on this noncontrast study. Impression: Findings suggestive of disseminated multilobar pneumonitis with small bilateral pleural effusions. Severe hepatic steatosis. Report Electronically Signed By: Gunjan Wallace 01/01/2025 3:34:37 AM [EST]
[2025-01-01 04:46] LABS: Basophils # (Auto) 0.1 Thou/mm3 (0.0-0.2); Basophils % (Auto) 0 % (0-2.5); Eosinophils # (Auto) 0.1 Thou/mm3 (0.0-0.5); Eosinophils % (Auto) 0 % (0-10); Hematocrit 21.5 % (36.0-46.0); Immature Granulocytes Auto 0.21 Thou/mm3 (0.00-0.00); Lymphocytes # (Auto) 1.3 Thou/mm3 (1.0-4.8); Lymphocytes % (Auto) 5 % (10-50); Mean Corpuscular HGB Conc 33.0 g/dl (31.0-37.0); Mean Corpuscular Hemoglobin 30.5 pg (25.0-35.0); Mean Corpuscular Volume 92 fL (80-100); Monocytes # (Auto) 1.2 Thou/mm3 (0.0-0.8); Monocytes % (Auto) 5 % (0-12); Neutrophils # (Auto) 23.3 Thou/mm3 (1.8-7.7); Neutrophils % (Auto) 89 % (37-80); Nucleated Red Blood Cell # 0.00 Thou/mm3 (0.00-0.00); Nucleated Red Blood Cell % 0 /100 WBC (0); Platelet Count 295 Thou/mm3 (140-440); RDW Standard Deviation 69.2 fL (36.4-46.3); Red Blood Count 2.33 Miln/mm3 (4.00-5.20); White Blood Count 26.1 Thou/mm3 (3.6-11.0)
[2025-01-01 04:47] LABS: Hemoglobin 7.1 g/dL (12.0-16.0)
[2025-01-01 05:00] LABS: INR 1.2 (0.9-1.3); Prothrombin Time 13.0 Seconds (9.0-12.2)
[2025-01-01 05:17] LABS: Alanine Aminotransferase 18 U/L (10-49); Albumin, Serum 2.1 gm/dL (3.5-5.0); Albumin/Globulin Ratio 0.6 (1.2-2.2); Alkaline Phosphatase 628 U/L (46-116); Anion Gap 11 (7-16); Aspartate Amino Transferase 109 U/L (0-34); BUN/Creatinine Ratio 13 Ratio (12-20); Bilirubin,Total 1.0 mg/dL (0.3-1.2); Blood Urea Nitrogen 10 mg/dL (9-23); Calcium 7.3 mg/dL (8.3-10.6); Calcium (Corrected) 8.8 mg/dL (8.5-10.1); Carbon Dioxide 27.1 mMol/L (20.0-31.0); Chloride 105 mMol/L (98-107); Creatinine (Component) 0.8 mg/dL (0.6-1.3); Estimated Creatinine Clearance 84.8 mL/min (>60); Globulin 3.8 gm/dL (2.3-3.5); Glucose 78 mg/dL (74-106); LDH (Lactate Dehydrogenase) 280 U/L (120-246); Magnesium 1.5 mg/dL (1.6-2.6); Osmolality,Calculated 282 (275-295); Phosphorous 3.5 mg/dL (2.4-5.1); Potassium 3.1 mMol/L (3.4-5.1); Sodium 143 mMol/L (136-145); Thyroid Stimulating Hormone 1.57 uIU/mL (0.55-4.78); Total Protein 5.9 gm/dL (5.7-8.2); eGFR > 60 See Note
[2025-01-01 05:45] LABS: Collection Type, Urine Clean Catch
[2025-01-01 05:54] LABS: Bilirubin,Urine Negative (Negative); Blood,Urine 1+ (Negative); Clarity,Urine Clear (Clear/Hazy); Color,Urine Yellow (Lt Yel-Yel); Culture Indicated,Urine Not Indicated; Glucose, Urine Negative (Negative); Ketones,Urine Negative (Negative); Leukocyte Esterase,Urine Negative (Negative); Nitrite,Urine Negative (Negative); PH,Urine 7.0 (5.0-7.0); Protein,Urine 2+ (Neg - Trace); RBC,Urine 8 /hpf (0-3); Specific Gravity,Urine 1.016 (1.001-1.035); Squamous Epithelial Cell,Urine 1 /hpf (0-5); Urobilinogen,Urine Negative mg/dL (0.0-1.0); WBC,Urine 6 /hpf (0-5)
--- NOTE | 2025-01-01 06:40 | PC.NURSE ---
Per admitting team give Albumin after 2nd unit of blood
--- NOTE | 2025-01-01 07:16 | XR_ITS ---
EXAMINATION: Ultrasound right pneumothorax Ultrasound left hemithorax Date and time: January 01, 2025 1107 hours INDICATIONS: Bilateral pleural effusions on chest x-ray January 01, 2025 TECHNIQUE: Hernandez scale sonographic images of right and left hemithoraces Minimal bilateral pleural fluid IMPRESSION: Minimal bilateral pleural fluid
[2025-01-01] MEDS: Magnesium Sulfate 4 GM Ivpb 4 GM/50 ML BAG IV (08:32)
[2025-01-01] MEDS: FUROSEMIDE INJ 10 MG/ML 4ML VIAL 40 MG IVP (08:32)
[2025-01-01] MEDS: POTASSIUM PHOS 22.5 MMOL in SODIUM CHLORIDE 0.9% 500 ML 500 ML 82.778 MMOL IV (08:32)
--- NOTE | 2025-01-01 08:34 | ECHO_ITS ---
Transthoracic Echo Report Ht (in): 61 Wt (lb): 130 Exam Location: [id number] Status: Inpatient Global Project Manager: Zulma Glover Indications: Procedure Performed: BP: 119 / 84 HR: 111 MEASUREMENTS (Male / Female) Normal Values 2D ECHO LV Diastolic Diameter PLAX 4.3 cm 4.2 - 5.9 / 3.9 - 5.3 cm LV Systolic Diameter PLAX 2.7 cm IVS Diastolic Thickness 0.7 cm 0.6 - 1.0 / 0.6 - 0.9 cm LVPW Diastolic Thickness 1.0 cm 0.6 - 1.0 / 0.6 - 0.9 cm LV Relative Wall Thickness 0.4 LVOT Diameter 1.9 cm LA Volume Index 24.3 cm?/m? 16 - 28 cm?/m? Ascending Aorta Diameter 2.1 cm M-MODE AV Cusp Separation MM 1.2 cm DOPPLER AV Peak Velocity 156.0 cm/s AV Peak Gradient 9.7 mmHg AV Mean Gradient 5.0 mmHg AV Velocity Time Integral 26.2 cm LVOT Peak Velocity 131.0 cm/s LVOT Peak Gradient 6.9 mmHg LVOT Velocity Time Integral 23.6 cm LVOT Cardiac Index 4628.6 cm?/min?m? AV Area Cont Eq vti 2.6 cm? AV Area Cont Eq pk 2.4 cm? MV Area PHT 9.6 cm? Mitral E Point Velocity 84.4 cm/s Mitral A Point Velocity 91.2 cm/s Mitral E to A Ratio 0.9 TR Peak Velocity 242.7 cm/s TR Peak Gradient 23.6 mmHg PV Peak Velocity 122.0 cm/s PV Peak Gradient 6.0 mmHg FINDINGS Left Ventricle Normal left ventricular size, wall thickness, systolic function with no obvious regional wall motion abnormalities. Normal left ventricular diastolic filling pattern for age. The ejection fraction is visually estimated at 60-65 %. Right Ventricle The right ventricle is normal in size and systolic function. The estimated right ventricular systolic pressure,35 mmHg with RAP 8. Mild HTN Left Atrium The left atrium is normal by two-dimensional, color flow and Doppler imaging with no structural abnormalities, no thrombus formation present. Right Atrium The right atrium is normal by two-dimensional imaging, color flow and Doppler imaging with no structural abnormalities, no thrombus formation present. Atrial Septum The interatrial septum appears normal with no evidence of a shunt. Aorta The aorta is normal by two-dimensional, color flow and Doppler interrogation. Mitral Valve The mitral valve is normal by two-dimensional, color flow and Doppler interrogation. Mild mitral regurgitation. Aortic Valve The aortic valve is trileaflet and normal by two-dimensional, color flow and Doppler interrogation. There is no significant aortic valve regurgitation. Tricuspid Valve The tricuspid valve is normal by two-dimensional, color flow and Doppler interrogation. There is mild tricuspid valve regurgitation. Pulmonic Valve The pulmonic valve is not well visualized. There is no significant pulmonic valve regurgitation. Vessels The pulmonary artery appears normal. The inferior vena cava pulmonary and hepatic veins appear normal. Pericardium Trivial pericardial effusion without any evidence of cardiac tamponade. CONCLUSIONS Indication: SOB Normal left ventricular size and function. Approximate ejection fraction is 60- 65%. Normal right ventricular size and function. RVSP 35 mmHg with RAP 8. Mild HTN Mild mitral and tricuspid regurgitation noted. Trivial pericardial effusion without any evidence of cardiac tamponade. Isreal Thakkar (Electronically Signed) Final Date: 02 January 2025 23:08
[2025-01-01 09:14] LABS: B-Type Natriuretic Peptide 37 pg/mL (0-100)
--- NOTE | 2025-01-01 09:47 | PC.SS ---
Patient Sunni Rodriguez is a 29 Year old female admitted for Shortness of Breath. SS met with patient at bedside to discuss discharge plan and verify demographic information. Patient reports she lives at home with family. Patient reports her sister, Divya Chambers is her surrogate decision maker, [phone].. Patient reports she needs assistance completing ADL's and and does utilize a Rollator walker to assist with ambulation. Choice of pharmacy is [facility]. PCP Marek Bullock. At time of discharge patient will return back home. Next of kin: Sister, Divya Chambers Discharge plan: Home
[2025-01-01 10:16] LABS: Hematocrit 34.3 % (36.0-46.0); Hemoglobin 11.5 g/dL (12.0-16.0)
--- NOTE | 2025-01-01 10:21 | ESPR_ITS ---
<Statement entered by Olaf Herrera MD - 01/01/25 15:17> Patient was examined at bedside this morning. No acute overnight events. Patient was admitted to the hospital for community-acquired pneumonia along with bilateral pleural effusions. Patient states that she recently was at [facility] where she had 3 L of fluid taken off her abdomen around a week ago and she did have another paracentesis yesterday in which she had 6 L taken out. Patient also gets hemodialysis frequently and states that she may have missed 1 yesterday. Otherwise no other complaints at this time. Patient is appears to be volume overloaded therefore we will get an echo and do Lasix 40 mg x 1. Pending nephrology recommendations. Thoracentesis was unsuccessful as there was minimal pleural fluid. Patient was started on albumin 50 g daily as she has hypoalbuminemia at 2.1. Will continue with ceftriaxone doxycycline for now. Will get GI on board due to patient being anemic requiring 1 PRBC and FOBT was also ordered. I have reviewed the note and agree with the resident's assessment & plan with exceptions as below. I have personally reviewed labs, imaging, home meds/prior records, examined the patient, formulated and discussed management plan with my attending Olaf Herrera PGY2 Disclaimer: Even though this this note was dictated by speech recognition and even though it was carefully revised there may still be minor errors in papier mache' molder due to voice recognition software. Documentation for date of: 01/01/25 Subjective Subjective Interval history: Patient was seen and examined at bedside. Patient no longer distended post- paracentesis, but with signficiant pedal edema. Patient may have missed dialysis yesterday. Will obtain medical records due to previous interactions with [facility] for dialysis. Exam Vital Signs Temp Pulse Resp BP Pulse Ox O2 Del Method 98.6 F 115 H 16 119/84 94 L Room Air 01/01/25 08:20 01/01/25 08:32 01/01/25 08:20 01/01/25 08:32 01/01/25 08:20 01/01/25 08:00 Narrative Exam General: A/O x3, no acute distress, thin and frail Eyes: PERRL, EOMI. Anicteric, vision grossly intact. Ears: No ear pain, no ear discharge, Hearing grossly intact. Nose: No nasal discharge. Mouth/Throat: dry mucous membranes, no redness, no lesions. Neck: Neck supple, non-tender, no cervical lymphadenopathy. Lungs: Clear LEANDRO to auscultation and percussion, No accessory muscle use, hemodialysis catheter present Cardio: Normal S1/S2, regular rhythm, no murmurs, no JVD or carotid bruits. Abdomen: Soft, non-tender, no palpable masses, peristalsis present, no guarding or rebound, mildly distended Extremities: Symmetrical, no significant deformities, 3+ bilateral pitting edema, non-tender, peripheral pulses present. Skin: Mild malar rash on face Neuro: No focal neurological deficits. Psych: Cooperative, appropriate mood and effect. Objective Labs 01/02/25 05:05 01/02/25 05:05 Labs: Laboratory Results - last 24 hr 12/31/24 12/31/24 12/31/24 15:12 21:40 21:55 WBC 26.4 H RBC 2.31 L Hgb 7.0 L Hct 21.3 L* MCV 92 MCH 30.3 MCHC 32.9 RDW Std Deviation 69.2 H Plt Count 303 D Neut % (Auto) 87 H Lymph % (Auto) 6 L [place] % (Auto) 5 Eos % (Auto) 1 Baso % (Auto) 0 Neut # (Auto) 22.9 H Lymph # (Auto) 1.5 [place] # (Auto) 1.4 H Eos # (Auto) 0.2 Baso # (Auto) 0.1 Immature Gran # (Auto) 0.31 H Absolute Nucleated RBC 0.00 Immature Gran % 1 H Nucleated RBC % 0 PT 12.7 H INR 1.2 APTT 31.6 Sodium 140 Potassium 3.0 L Chloride 101 Carbon Dioxide 27.2 Anion Gap 12 BUN 9 Creatinine 0.9 Estim Creat Clear Calc 75.4 eGFR > 60 BUN/Creatinine Ratio 10 L Glucose 90 Calculated Osmolality 278 Lactic Acid 3.4 H Calcium 8.0 L Corrected Calcium 9.1 Phosphorus Magnesium Total Bilirubin 1.1 AST 138 H ALT 25 Alkaline Phosphatase 720 H Lactate Dehydrogenase Troponin I < 0.002 < 0.002 B-Natriuretic Peptide Total Protein 6.7 Albumin 2.6 L Globulin 4.1 H Albumin/Globulin Ratio 0.6 L Procalcitonin 1.54 H TSH HCG, Qual Negative Ur Collection Type Urine Color Urine Clarity Urine pH Ur Specific [place] Urine Protein Urine Glucose (UA) Urine Ketones Urine Blood Urine Nitrite Urine Bilirubin Urine Urobilinogen (Auto) Ur Leukocyte Esterase Urine RBC Urine WBC Ur Squamous Epith Cells Urine Bacteria Ur Culture Indicated? Blood Type Antibody Screen Crossmatch Blood Bank Wristband ID 01/01/25 01/01/25 01/01/25 00:45 01:09 04:25 WBC 26.1 H RBC 2.33 L Hgb 7.1 L Hct 21.5 L* MCV 92 MCH 30.5 MCHC 33.0 RDW Std Deviation 69.2 H Plt Count 295 Neut % (Auto) 89 H Lymph % (Auto) 5 L [place] % (Auto) 5 Eos % (Auto) 0 Baso % (Auto) 0 Neut # (Auto) 23.3 H Lymph # (Auto) 1.3 [place] # (Auto) 1.2 H Eos # (Auto) 0.1 Baso # (Auto) 0.1 Immature Gran # (Auto) 0.21 H Absolute Nucleated RBC 0.00 Immature Gran % 1 H Nucleated RBC % 0 PT 13.0 H INR 1.2 APTT Sodium 143 Potassium 3.1 L Chloride 105 Carbon Dioxide 27.1 Anion Gap 11 BUN 10 Creatinine 0.8 Estim Creat Clear Calc 84.8 eGFR > 60 BUN/Creatinine Ratio 13 Glucose 78 Calculated Osmolality 282 Lactic Acid 3.2 H Calcium 7.3 L Corrected Calcium 8.8 Phosphorus 3.5 Magnesium 1.5 L Total Bilirubin 1.0 AST 109 H ALT 18 Alkaline Phosphatase 628 H D Lactate Dehydrogenase 280 H Troponin I B-Natriuretic Peptide Total Protein 5.9 Albumin 2.1 L D Globulin 3.8 H Albumin/Globulin Ratio 0.6 L Procalcitonin TSH 1.57 HCG, Qual Ur Collection Type Urine Color Urine Clarity Urine pH Ur Specific [place] Urine Protein Urine Glucose (UA) Urine Ketones Urine Blood Urine Nitrite Urine Bilirubin Urine Urobilinogen (Auto) Ur Leukocyte Esterase Urine RBC Urine WBC Ur Squamous Epith Cells Urine Bacteria Ur Culture Indicated? Blood Type O Positive Antibody Screen NEGATIVE Crossmatch See Detail Blood Bank Wristband ID Yes 01/01/25 01/01/25 05:24 05:50 WBC RBC Hgb Hct MCV MCH MCHC RDW Std Deviation Plt Count Neut % (Auto) Lymph % (Auto) [place] % (Auto) Eos % (Auto) Baso % (Auto) Neut # (Auto) Lymph # (Auto) [place] # (Auto) Eos # (Auto) Baso # (Auto) Immature Gran # (Auto) Absolute Nucleated RBC Immature Gran % Nucleated RBC % PT INR APTT Sodium Potassium Chloride Carbon Dioxide Anion Gap BUN Creatinine Estim Creat Clear Calc eGFR BUN/Creatinine Ratio Glucose Calculated Osmolality Lactic Acid Calcium Corrected Calcium Phosphorus Magnesium Total Bilirubin AST ALT Alkaline Phosphatase Lactate Dehydrogenase Troponin I B-Natriuretic Peptide 37 Total Protein Albumin Globulin Albumin/Globulin Ratio Procalcitonin TSH HCG, Qual Ur Collection Type Clean Catch Urine Color Yellow Urine Clarity Clear Urine pH 7.0 Ur Specific [place] 1.016 Urine Protein 2+ A Urine Glucose (UA) Negative Urine Ketones Negative Urine Blood 1+ A Urine Nitrite Negative Urine Bilirubin Negative Urine Urobilinogen (Auto) Negative Ur Leukocyte Esterase Negative Urine RBC 8 H Urine WBC 6 H Ur Squamous Epith Cells 1 Urine Bacteria None Ur Culture Indicated? Not Indicated Blood Type Antibody Screen Crossmatch Blood Bank Wristband ID Quality Measures Quality Measures none Assessment & Plan Assessment Current Active Medications: Generic Name Dose Route Start Last Admin Trade Name Freq PRN Reason Stop Dose Admin Acetaminophen 650 mg 12/31/24 23:05 Acetaminophen 325 Mg Tablet PO 01/30/25 23:04 Q6H PRN Fever >100.4 Acetaminophen 650 mg 01/01/25 05:32 Acetaminophen 325 Mg Tablet PO 01/31/25 05:31 Q6HR PRN mild pain 1-3 Ceftriaxone Sodium/Dextrose 1 gm in 50 mls @ 100 mls/hr 01/01/25 21:00 Rocephin/D5w 1gm Iv Premix IV 01/08/25 20:59 HS NATHALY Doxycycline Hyclate 100 mg/ 100 mls @ 100 mls/hr 01/01/25 09:00 01/01/25 08:32 Sodium Chloride IV 01/08/25 08:59 100 mls/hr BID NATHALY Administration Magnesium Sulfate 4 gm in 50 mls @ 12.5 mls/hr 01/01/25 07:52 01/01/25 08:32 Magnesium Sulfate Ivpb IV 01/01/25 11:51 12.5 mls/hr X1 ONE Administration Potassium Phosphate 22.5 mmol/ 507.5 mls @ 82.778 mls/hr 01/01/25 07:53 01/01/25 08:32 Sodium Chloride IV 01/01/25 14:00 82.778 mls/hr X1 ONE Administration Albumin Human 25 gm in 100 mls @ 100 mls/hr 01/01/25 10:00 Albuminex 25% Ivpb IV 01/05/25 10:59 QDAY@1000 NATHALY Albumin Human 25 gm in 100 mls @ 100 mls/hr 01/01/25 09:15 Albuminex 25% Ivpb IV 01/05/25 09:59 QDAY NATHALY Ondansetron HCl 4 mg 12/31/24 23:05 Ondansetron Inj 2 Mg/Ml Inj 2 Ml IVP 01/30/25 23:04 Q6H PRN NAUSEA OR VOMITING Protocol Sennosides 1 tab 12/31/24 23:05 Senna Tablet PO 01/30/25 23:04 QDAY PRN constipation Protocol Plan Patient 29-year-old female with past medical history of lupus nephritis on hemodialysis, Sjogren syndrome, Supa's thyroidits presenting with shortness of breath and chest pain, and admitted for pneumonia with shortness of breath and bilateral pleural effusion. #Commmunity acquired pneumonia #Bilateral pleural effusions #Ascites #Fluid overload Patient was short of breath and tachycardic on admission; CT chest (01/01/25)- severe bilateral pneumonia with bilateral pleural effusions; paracentesis done on admission- removed 6.5L fluid; pulse: 116 on 01/01/25; Albumin- 2.1 on 01/01/25 Plan: Ceftriaxone 1g IV and doxycylcine 100mg BID IV Pleural fluid taken, waiting for results Unable to obtain fluid in thoracentesis Albumin 25g IV daily for 5 days to replete Furosemide 40mg IV given #Normocytic Anemia Hgb between 7 and 8 since June 2024; Hgb 7 on admission, MCV 92; 11.5 on 01/01/25 after 1 unit pRBCs; presented with shortness of breath and chest pain. Ddx: most likely anemia of chronic disease secondary to known autoimmune disorders Plan: Trend Hgb FOBT ordered GI consulted, appreciate recs # Lupus Nephritis on dialysis # Sjogren syndrome # ?Autoimmune Hepatitis On dialysis and prednisone at home; CT A/P shows hepatomegaly with severe diffuse fatty infiltration throughout the liver (01/01/25) Plan: Consult nephrology, appreciate recommendations GI consulted, appreciate recs #Leukocytosis Likely in the setting of prednisone use Plan: Trend #History of Pulmonary embolism Plan: SCD Disposition: Med-Surg DVT prophylaxis: SCDs GI prophylaxis: N/A Diet: Regular Lines: PIV, hemodialysis catheter CODE STATUS: Limited code This case was discussed with my attending physician, Dr. Johnson, and senior resident, Dr. Sheikh. Christopher López MD-PhD, PGY1 Attending Provider Attestation/Addendum I have discussed and was present for the essential components of the history, physical examination, diagnosis, and treatment plan with the resident. I agree with the patient's care as documented by the resident and amended herein by me. Nehemias Johnson, DO. Although this document has been carefully reviewed, there may still be some phonetic and other typographical errors. These errors are purely grammatical due to imperfections in the software program and should not be construed in any way to compromise the substance of the patient's medical care during this visit.
[2025-01-01] MEDS: ALBUMIN HUMAN-KJDA 25% IVPB 25 GM/100 ML BTL IV ×2 (10:24→11:20)
--- NOTE | 2025-01-01 10:48 | PC.SS ---
Update: Fluid overload, possible discharge within 1-2 days.
[2025-01-01 12:16] LABS: Cocci Serology, IgM Negative (Negative)
--- NOTE | 2025-01-01 19:48 | PD.IMCONS ---
HPI Data of Consult Requesting Physician: Justin Johnson DO Primary Care Provider: Physician No Primary/Family Consult Narrative cc:: cc: Justin Johnson DO Meds Home Medications and Allergies Home Medications ?Medication ?Instructions ?Recorded ?Confirmed ?Type hydroxychloroquine 200 mg tablet 200 mg PO QDAY 01/01/25 01/01/25 History prednisone 10 mg tablet 10 mg PO QDAY 01/01/25 01/01/25 History Allergies Allergy/AdvReac Type Severity Reaction Status Date / Time No Known Allergies Allergy Verified 12/31/24 14:13 Exam Vital Signs Temp Pulse Resp BP Pulse Ox O2 Del Method 98.1 F 116 H 19 114/75 92 L Room Air 01/01/25 16:00 01/01/25 16:00 01/01/25 16:00 01/01/25 16:00 01/01/25 16:00 01/01/25 16:00 Results Labs 01/01/25 09:59 01/01/25 04:25 Labs: Short CBC 01/01/25 01/01/25 Range/Units 04:25 09:59 WBC 26.1 H (3.6-11.0) Thou/mm3 Hgb 7.1 L 11.5 L D (12.0-16.0) g/dL Hct 21.5 L* 34.3 L D (36.0-46.0) % Plt Count 295 (140-440) Thou/mm3 BMP 01/01/25 04:25 Sodium 143 Potassium 3.1 L Chloride 105 Carbon Dioxide 27.1 BUN 10 Creatinine 0.8 Glucose 78 Calcium 7.3 L Cardiac Enzymes 12/31/24 Range/Units 21:55 Troponin I < 0.002 (0.0-0.045) ng/mL Liver Function 01/01/25 Range/Units 04:25 Total Bilirubin 1.0 (0.3-1.2) mg/dL AST 109 H (0-34) U/L ALT 18 (10-49) U/L Alkaline Phosphatase 628 H D (46-116) U/L Albumin 2.1 L D (3.5-5.0) gm/dL Urine 01/01/25 Range/Units 05:24 Urine Color Yellow (Lt Yel-Yel) Urine Clarity Clear (Clear/Hazy) Urine pH 7.0 (5.0-7.0) Ur Specific [place] 1.016 (1.001-1.035) Urine Protein 2+ A (Neg - Trace) Urine Glucose (UA) Negative (Negative)
[2025-01-01] MEDS: cefTRIAXone/D5w 1gm IV premix 1 GM/50 ML BAG IV (20:40)
[2025-01-01] MEDS: NA SU/NAHCO3/KC/PEG (Golytely) 4,000 ML BTL 4000 ML PO (20:44)
[2025-01-02] VITALS: BP 117/77; PULSE 115; RESP 20; TEMP 37.2; O2SAT 95
--- NOTE | 2025-01-02 01:39 | PC.NURSE ---
Patient not taking enough amount of Golytely despite hourly attempts to assist her. Pt observed just taking small sips each time. Offered to insert an NG-tube as alternative and as what she has agreed upon with Dr. Sanchez should she fail to take it by mouth but Pt started to cry and refused. Pt promised to continue to drink. Will continue to assist patient hourly with drinking.
[2025-01-02 04:00] VITALS: BP 110/79; PULSE 109; RESP 19; TEMP 36.9; O2SAT 94
[2025-01-02 04:21] VITALS: PULSE 114
--- NOTE | 2025-01-02 05:58 | PC.NURSE ---
Patient verbalized not wanting to proceed with colonoscopy. Patient stopped drinking Golytely at 0258. Will let AM nurse know.
[2025-01-02 06:00] LABS: Basophils # (Auto) 0.1 Thou/mm3 (0.0-0.2); Basophils % (Auto) 1 % (0-2.5); Eosinophils # (Auto) 0.3 Thou/mm3 (0.0-0.5); Eosinophils % (Auto) 1 % (0-10); Hematocrit 25.8 % (36.0-46.0); Hemoglobin 8.9 g/dL (12.0-16.0); Immature Granulocytes Auto 0.21 Thou/mm3 (0.00-0.00); Lymphocytes # (Auto) 1.7 Thou/mm3 (1.0-4.8); Lymphocytes % (Auto) 7 % (10-50); Mean Corpuscular HGB Conc 34.5 g/dl (31.0-37.0); Mean Corpuscular Hemoglobin 30.8 pg (25.0-35.0); Mean Corpuscular Volume 89 fL (80-100); Monocytes # (Auto) 0.9 Thou/mm3 (0.0-0.8); Monocytes % (Auto) 4 % (0-12); Neutrophils # (Auto) 21.9 Thou/mm3 (1.8-7.7); Neutrophils % (Auto) 87 % (37-80); Nucleated Red Blood Cell # 0.00 Thou/mm3 (0.00-0.00); Nucleated Red Blood Cell % 0 /100 WBC (0); Platelet Count 275 Thou/mm3 (140-440); RDW Standard Deviation 60.6 fL (36.4-46.3); Red Blood Count 2.89 Miln/mm3 (4.00-5.20); White Blood Count 25.2 Thou/mm3 (3.6-11.0)
[2025-01-02 06:16] LABS: INR 1.2 (0.9-1.3); Prothrombin Time 12.8 Seconds (9.0-12.2)
[2025-01-02 06:31] LABS: Alanine Aminotransferase 13 U/L (10-49); Albumin, Serum 2.6 gm/dL (3.5-5.0); Albumin/Globulin Ratio 0.8 (1.2-2.2); Alkaline Phosphatase 500 U/L (46-116); Anion Gap 14 (7-16); Aspartate Amino Transferase 86 U/L (0-34); BUN/Creatinine Ratio 9 Ratio (12-20); Bilirubin,Total 1.3 mg/dL (0.3-1.2); Blood Urea Nitrogen 7 mg/dL (9-23); Calcium 7.5 mg/dL (8.3-10.6); Calcium (Corrected) 8.6 mg/dL (8.5-10.1); Carbon Dioxide 26.5 mMol/L (20.0-31.0); Chloride 105 mMol/L (98-107); Creatinine (Component) 0.8 mg/dL (0.6-1.3); Estimated Creatinine Clearance 74.2 mL/min (>60); Globulin 3.2 gm/dL (2.3-3.5); Glucose 80 mg/dL (74-106); Magnesium 2.0 mg/dL (1.6-2.6); Osmolality,Calculated 285 (275-295); Phosphorous 3.6 mg/dL (2.4-5.1); Potassium 3.2 mMol/L (3.4-5.1); Sodium 145 mMol/L (136-145); Total Protein 5.8 gm/dL (5.7-8.2); eGFR > 60 See Note
[2025-01-02 07:20] VITALS: PULSE 117; RESP 20; RESP 96
--- NOTE | 2025-01-02 07:53 | PD.RESPRO ---
Documentation for date of: 01/02/25 Exam Vital Signs Temp Pulse Resp BP Pulse Ox O2 Del Method 98.5 F 114 H 19 110/79 94 L Room Air 01/02/25 04:00 01/02/25 04:21 01/02/25 04:00 01/02/25 04:00 01/02/25 04:00 01/02/25 04:00 Objective Labs 01/02/25 05:05 01/02/25 05:05 Labs: Laboratory Results - last 24 hr 01/01/25 01/01/25 01/01/25 00:45 05:50 09:59 WBC RBC Hgb 11.5 L D Hct 34.3 L D MCV MCH MCHC RDW Std Deviation Plt Count Neut % (Auto) Lymph % (Auto) [place] % (Auto) Eos % (Auto) Baso % (Auto) Neut # (Auto) Lymph # (Auto) [place] # (Auto) Eos # (Auto) Baso # (Auto) Immature Gran # (Auto) Absolute Nucleated RBC Immature Gran % Nucleated RBC % PT INR Sodium Potassium Chloride Carbon Dioxide Anion Gap BUN Creatinine Estim Creat Clear Calc eGFR BUN/Creatinine Ratio Glucose Calculated Osmolality Calcium Corrected Calcium Phosphorus Magnesium Total Bilirubin AST ALT Alkaline Phosphatase B-Natriuretic Peptide 37 Total Protein Albumin Globulin Albumin/Globulin Ratio Coccidioides IgM Ab Negative Crossmatch See Detail 01/02/25 05:05 WBC 25.2 H RBC 2.89 L Hgb 8.9 L D Hct 25.8 L MCV 89 MCH 30.8 MCHC 34.5 RDW Std Deviation 60.6 H Plt Count 275 Neut % (Auto) 87 H Lymph % (Auto) 7 L [place] % (Auto) 4 Eos % (Auto) 1 Baso % (Auto) 1 Neut # (Auto) 21.9 H Lymph # (Auto) 1.7 [place] # (Auto) 0.9 H Eos # (Auto) 0.3 Baso # (Auto) 0.1 Immature Gran # (Auto) 0.21 H Absolute Nucleated RBC 0.00 Immature Gran % 1 H Nucleated RBC % 0 PT 12.8 H INR 1.2 Sodium 145 Potassium 3.2 L Chloride 105 Carbon Dioxide 26.5 Anion Gap 14 BUN 7 L Creatinine 0.8 Estim Creat Clear Calc 74.2 eGFR > 60 BUN/Creatinine Ratio 9 L Glucose 80 Calculated Osmolality 285 Calcium 7.5 L Corrected Calcium 8.6 Phosphorus 3.6 Magnesium 2.0 Total Bilirubin 1.3 H AST 86 H ALT 13 Alkaline Phosphatase 500 H D B-Natriuretic Peptide Total Protein 5.8 Albumin 2.6 L D Globulin 3.2 Albumin/Globulin Ratio 0.8 L Coccidioides IgM Ab Crossmatch Quality Measures Quality Measures none Assessment & Plan Assessment Current Active Medications: Generic Name Dose Route Start Last Admin Trade Name Freq PRN Reason Stop Dose Admin Acetaminophen 650 mg 12/31/24 23:05 Acetaminophen 325 Mg Tablet PO 01/30/25 23:04 Q6H PRN Fever >100.4 Acetaminophen 650 mg 01/01/25 05:32 Acetaminophen 325 Mg Tablet PO 01/31/25 05:31 Q6HR PRN mild pain 1-3 Ceftriaxone Sodium/Dextrose 1 gm in 50 mls @ 100 mls/hr 01/01/25 21:00 01/01/25 20:40 Rocephin/D5w 1gm Iv Premix IV 01/08/25 20:59 100 mls/hr HS NATHALY Administration Doxycycline Hyclate 100 mg/ 100 mls @ 100 mls/hr 01/01/25 09:00 01/01/25 21:32 Sodium Chloride IV 01/08/25 08:59 100 mls/hr BID NATHALY Administration Albumin Human 25 gm in 100 mls @ 100 mls/hr 01/01/25 10:00 01/01/25 11:20 Albuminex 25% Ivpb IV 01/05/25 10:59 100 mls/hr QDAY@1000 NATHALY Administration Albumin Human 25 gm in 100 mls @ 100 mls/hr 01/01/25 09:15 01/01/25 10:24 Albuminex 25% Ivpb IV 01/05/25 09:59 100 mls/hr QDAY NATHALY Administration Potassium Phosphate 22.5 mmol/ 507.5 mls @ 82.778 mls/hr 01/02/25 07:11 Sodium Chloride IV 01/02/25 13:18 X1 ONE Ondansetron HCl 4 mg 12/31/24 23:05 Ondansetron Inj 2 Mg/Ml Inj 2 Ml IVP 01/30/25 23:04 Q6H PRN NAUSEA OR VOMITING Protocol Sennosides 1 tab 12/31/24 23:05 Senna Tablet PO 01/30/25 23:04 QDAY PRN constipation Protocol
[2025-01-02 08:00] VITALS: BP 111/77; PULSE 109; PULSE 116; RESP 20; TEMP 36.6; O2SAT 95
[2025-01-02 08:03] LABS: OBS Card Lot # 23001; OBS Developer Lot # 23003; OBS Performed By ANDRS3; OBS QC OK? Yes; Occult Blood, Stool Positive (Negative)
--- NOTE | 2025-01-02 08:46 | PC.NURSE ---
Patient expressed desire to leave against medical advice. Dr Sheikh in to provide education. Despite consequences including being explained if patient leaves at this time, and benefits provided as to why she needs continued hospitalization and medical care, the patient decided she still desires to leave AMA and her father will pick her up. She believes she has enough specialists and thinks she will be safe leaving. She was strongly encouraged to return to the ER, and if she doesnt, she was instructed to follow up with primary care physician and all specialists. Peripheral IVs were removed, and dialysis catheter dressing was changed.
[2025-01-02 14:42] LABS: Cocci Serology, IgG Negative (Negative)
--- NOTE | 2025-01-02 15:49 | EVENTNT_ITS ---
<Statement entered by Olaf Herrera MD - 01/02/25 16:33> Patient was seen and examined at bedside this morning. No acute overnight events. Patient was scheduled to get colonoscopy today, but she stated that she was taking the colonoscopy as she was getting all this work up as outpatient and that she had already had her specialist and she had follow-up appointments with them therefore she wanted to leave AGAINST MEDICAL ADVICE. Patient was AO x 4 and understood all risk about leaving AGAINST MEDICAL ADVICE which included . I have reviewed the note and agree with the resident's assessment & plan with exceptions as above. I have personally reviewed labs, imaging, home meds/prior records, examined the patient, formulated and discussed management plan with my attending Olaf Herrera PGY2 Disclaimer: Even though this this note was dictated by speech recognition and even though it was carefully revised there may still be minor errors in tr anscription due to voice recognition software. Documentation for date of: 01/02/25 Event Note Event Note: On 01/02/2025, patient decided to leave AGAINST MEDICAL ADVICE, as she believed her problems could be managed by her outpatient physicians; the risks of leaving AGAINST MEDICAL ADVICE were explained to her, and she signed the appropriate paperwork. Hospital Course: Patient is a 29-year-old female with past medical history of lupus nephritis, Sjogren syndrome, Supa's, on regular dialysis who presented to the ED on 12/31/2024 with complaints of shortness of breath and chest pain, and was admitted for pneumonia with shortness of breath and bilateral pleural effusion on 12/31/24. Patient stated that she was at [facility] where she had 3 L taken off of her abdomen about a week ago, and then additional 6 L on 12/31/2024. Patient also receives hemodialysis and may have missed 1 the day before admission. Patient was started on doxycycline and ceftriaxone in the ED in the setting of chest x-ray showing bilateral pneumonia with pleural effusions. On 01/01/2025, patient was started on 50 g albumin daily as her presenting albumin was 2.1, most likely in the setting of paracentesis. She was also given a one-time dose of furosemide 40 to diurese her and an echocardiogram was ordered; thoracentesis was unsuccessful by IR due to low volume. Patient was also transfused with 1 unit PRBCs, secondary to hemoglobin of 7.1, and GI was consulted. On 01/02/2025, patient decided to leave AGAINST MEDICAL ADVICE, as she believed her problems would be managed by her outpatient physicians; the risks of leaving AGAINST MEDICAL ADVICE were explained to her and she signed the appropriate paperwork. Physical Exam: General: A/O x3, no acute distress, thin and frail Eyes: PERRL, EOMI. Anicteric, vision grossly intact. Ears: No ear pain, no ear discharge, Hearing grossly intact. Nose: No nasal discharge. Mouth/Throat: dry mucous membranes, no redness, no lesions. Neck: Neck supple, non-tender, no cervical lymphadenopathy. Lungs: Clear LEANDRO to auscultation and percussion, No accessory muscle use, hemodialysis catheter present Cardio: Normal S1/S2, regular rhythm, no murmurs, no JVD or carotid bruits. Abdomen: Soft, non-tender, no palpable masses, peristalsis present, no guarding or rebound, mildly distended Extremities: Symmetrical, no significant deformities, 3+ bilateral pitting edema (though less than before), non-tender, peripheral pulses present. Skin: Mild malar rash on face Neuro: No focal neurological deficits. Psych: Cooperative, appropriate mood and effect. Discharge Instructions: Recommend follow-up with outpatient PCP, assistant, wheel braider, paper and prints restorer, and library services dean.
== END 2025-01-02 09:55 | disposition left against medical advice (07) | DRG 139 ==
LOC: SERX 21:45 → SERHOLD 23:33 → S3NX 01-01 06:57
PROVIDERS: Nurse Practitioner Primary Care; Student in an Organized Health Care Education/Training Program; Admitting Provider Internal Medicine; Emergency Provider Emergency Medicine; Visit Provider Student in an Organized Health Care Education/Training Program
DX: J18.9 Pneumonia, unspecified organism (principal); J90 Pleural effusion, not elsewhere classified; M35.00 Sjogren syndrome, unspecified; E06.3 Autoimmune thyroiditis; M32.14 Glomerular disease in systemic lupus erythematosus; Z86.711 Personal history of pulmonary embolism; R18.8 Other ascites; E88.09 Other disorders of plasma-protein metabolism, not elsewhere classified; R14.0 Abdominal distension (gaseous); D64.9 Anemia, unspecified; E87.6 Hypokalemia; Z99.2 Dependence on renal dialysis; E87.70 Fluid overload, unspecified
CPT/HCPCS: 36415; 36430; 71045; 71250; 76999; 80053; 81001; 82150; 82270; 82945; 83605; 83615; 83735; 83880; 84100; 84145; 84157; 84443; 84484; 84703; 85014; 85018; 85025; 85610; 85730; 86331; 86635; 86850; 86900; 86901; 86923; 87040; 87070; 87075; 87081; 87205; 87811; 89051; 93005; 93225; 93306; 96365; 96366; 99285; A4649; C1729; J0696; J1938; J3475; J3480; J3490; J7999; P9016; P9047; P0947

== ENCOUNTER 2025-02-07 08:38 | Emergency (ER) | payer MEDICAID, SELFPAY ==
[2025-02-07 08:39] VITALS: BMI 18.8
[2025-02-07 08:49] VITALS: BP 104/72; PULSE 114; RESP 16; TEMP 36.6; O2SAT 98
--- NOTE | 2025-02-07 09:06 | PD.EDABDPN ---
ED Abdominal Pain RME/HPI General Chief Complaint: Abdominal Pain Stated complaint: WANTS PARACENTISIS Arrival date/time: 02/07/25 08:38 RME / HPI RME / HPI narrative: See [facility] for Dr. Figueroa's HPI Documentation. Related Data Home Medications ?Medication ?Instructions ?Recorded ?Confirmed hydroxychloroquine 200 mg tablet 200 mg PO QDAY 01/01/25 01/01/25 prednisone 10 mg tablet 10 mg PO QDAY 01/01/25 01/01/25 Previous Rx's ?Medication ?Instructions ?Recorded ondansetron 4 mg disintegrating 4 mg PO Q8H PRN nausea and 07/03/24 tablet vomiting #20 tabs furosemide 40 mg tablet (Lasix) 40 mg PO QAM #30 tabs 02/07/25 Allergies Allergy/AdvReac Type Severity Reaction Status Date / Time No Known Allergies Allergy Verified 02/07/25 08:40 Review of Systems Review of Systems Systems Reviewed: All systems reviewed, normal except as documented Past Medical History Past Medical History CARDIAC: Positive Edema GASTROINTESTINAL: Positive Gastrointestinal Disorders and Cirrhosis (last month) GENITOURINARY: Positive Genitourinary Disorders, Renal Disease and Dialysis MUSCULOSKELETAL: Positive Musculoskeletal Disorders and Fibromyalgia HEMATOLOGIC: Positive Blood Disorders and Anemia OTHER HISTORY: Positive Hospitalization, Autoimmune Disease (Sjogren, Lupus) and Blood Transfusions Social History SMOKING STATUS: Never smoker SUBSTANCE USE: does not use ED Exam Narrative Physical exam: See [facility] for Dr. Figueroa's HPI Documentation. Course Quality Measures none Orders Category Date Time Status Bedside COVID-19 Antigen Test NOW Care 02/07/25 09:10 Completed EKG (ED ONLY) *Do not use* NOW Care 02/07/25 09:10 Completed Saline [Insert IV] NOW Care 02/07/25 09:10 Completed Straight [In and Out Catheter] X1 Care 02/07/25 09:[address] chest abdomen pelvis wo Stat Exams 02/07/25 09:11 Ordered EKG (ED Only) Stat Exams 02/07/25 09:10 Draft US abdomen limited Stat Exams 02/07/25 09:11 Completed XR chest 1V portable Stat Exams 02/07/25 09:11 Completed Alcohol, Blood Medical Stat Lab 02/07/25 09:31 Completed Ammonia Stat Lab 02/07/25 09:31 Completed Amylase Stat Lab 02/07/25 09:31 Completed BNP [B-Type Natriuretic Peptide] Stat Lab 02/07/25 09:31 Completed Bilirubin,Direct Stat Lab 02/07/25 09:31 Completed Blood Culture (Lab) Stat Lab 02/07/25 09:30 Received CBC Stat Lab 02/07/25 09:31 Completed CMP [Comprehensive Metabolic Panel] Stat Lab 02/07/25 09:31 Completed CRP [C-Reactive Protein] Stat Lab 02/07/25 09:31 Completed Drug Screen,Urine Stat Lab 02/07/25 11:35 Completed ESR [Sed Rate (ESR)] Stat Lab 02/07/25 09:31 Completed HCG,Qualitative Serum Stat Lab 02/07/25 09:31 Completed Influenza A & B Rapid Panel Stat Lab 02/07/25 09:45 Completed Lactate (Lactic Acid) Stat Lab 02/07/25 09:31 Completed Lipase Stat Lab 02/07/25 09:31 Completed Magnesium Stat Lab 02/07/25 09:31 Completed PT [Prothrombin Time with INR] Stat Lab 02/07/25 09:31 Completed PTT [Partial Thromboplastin Time] Stat Lab 02/07/25 09:31 Completed Procalcitonin Stat Lab 02/07/25 09:31 Completed TSH [Thyroid Stimulating Hormone] Stat Lab 02/07/25 09:31 Completed Troponin I Stat Lab 02/07/25 09:31 Completed UA, C/S IF [Urinalysis, C/S if Indicated] Stat Lab 02/07/25 11:35 Completed VBG [Venous Blood Gas] Stat Lab 02/07/25 09:31 Completed Furosemide Inj [Lasix Inj] Med 02/07/25 09:10 Discontinued 60 mg IVP X1 ONE Vital Signs Vital signs: Vital Signs Temperature 97.9 F 02/07/25 08:49 Pulse Rate 114 H 02/07/25 08:49 Respiratory Rate 16 02/07/25 08:49 Blood Pressure 104/72 02/07/25 08:49 Pulse Oximetry (%) 98 02/07/25 08:49 Oxygen Delivery Method Room Air 02/07/25 08:49 Abdominal Pain MDM MDM Narrative MDM Narrative:: This section includes all my notes and documentations, including HPI, PE, and ED course. Julian Figueroa MD HPI: 29-year-old female here requesting paracentesis for ascites. Has chronic ascites from liver disease. Last paracentesis a couple of months ago. Reports worsening distention and discomfort. No fever or chills. No nausea or vomiting. No shortness of breath. No other complaints. ROS: All negative except as documented in HPI. Physical Exam: General: Alert and oriented. No acute distress when remaining still. Eyes: Conjunctivae and lids clear. ENT: No nasal congestion. Neck: Supple. Heart: RRR. Lungs: No respiratory distress. Good air movement. No rhonchi, wheezing, rales. Abdomen: Soft and nontender. Normal bowel sounds. Obvious distention noted. No rebound or guarding. Back: No CVA tenderness. Skin: Warm and dry. Neuro: Alert and oriented X 3. I reviewed all diagnostic test results: My interpretation of the EKG is: Sinus rhythm (105 bpm) with nonspecific ST-T changes. My interpretation of the chest x-ray is bilateral pleural effusions. My review of the abdomen US report is moderate ascites. Blood tests and urine tests unremarkable. Covid & Influenza are both negative. At this point, diagnoses include: Ascitis Bilateral pleural effusion Treatment here included: Lasix 60 mg IV Some improvement noted. Our interventional radiologist not available today, will be available tomorrow. Recommended returning tomorrow. Based on my best medical judgment, made decision no further evaluation or treatment indicated at this time. Patient understands and agrees to the discharge instructions customized and printed, see below. Discharge Instructions from Dr. Figueroa: --As you requested, you are being discharged home. Our interventional radiologist will be here tomorrow. --Your symptoms are due to ascites and pleural effusion.? See attached handouts. --To help urinate out the extra fluid, take Lasix 40 mg every morning. --When sitting or resting and sleeping, elevate the head of bed and elevate your feet/ankles above your waist level.? This is extremely important to get the extra fluid back into your circulation so you can urinate out the extra fluid. --Limit all oral fluid intake to less than 4 cups per 24 hours. Then don't go out of your way to drink too much fluid--only when your body tells you to drink.?? --Eat a banana daily because Lasix can lower your potassium level.?? --See your private doctor tomorrow or return here for further care by our interventional radiologist. --Seek immediate medical care with worsening or with any concerns.? Julian Figueroa MD Patient data External records reviewed:: [facility] previous records Clinical information provided by:: patient Social determinants that could affect healthcare access:: none Patient has the following chronic illnesses:: history of lupus nephritis, Sjogren syndrome, Supa's, on regular dialysis How is presenting disease/condition affected by chronic disease/condition?: exacerbated by Evaluation data The following diagnostics were reviewed and interpreted by me:: lab results, radiology exam(s) and EKG tracing(s) (My interpretation of the EKG is: Sinus rhythm (105 bpm) with nonspecific ST-T changes. Julian Figueroa MD) Lab and/or radiology exams considered but not ordered:: Patient refused chest/abdomen/pelvis CT. Interpretation Summary: I reviewed all diagnostic test results: My interpretation of the EKG is: Sinus rhythm (105 bpm) with nonspecific ST-T changes. My interpretation of the chest x-ray is bilateral pleural effusions. My review of the abdomen US report is moderate ascites. Blood tests and urine tests unremarkable. Covid & Influenza are both negative. Medications / Prescriptions Medications or Prescriptions considered but not ordered:: none Medication administrations:: Medication Administration History Discontinued Medications Furosemide (Furosemide Inj 10 Mg/Ml 4ml Vial) 60 mg IVP X1 ONE Stop: 02/07/25 09:11 Last Admin: 02/07/25 09:51 Dose: Not Given Documented By: VL Non-Admin Reason: Per Protocol Comments: LOW BP HOLD PER DR FIGUEROA Lasix 60 mg IV Consultations Consultation(s) initiated? (list below): No Diagnosis Differential diagnosis abdominal pain: other (Worsening ascites, spontaneous bacterial peritonitis, and hepatic decompensation.) Most likely diagnosis given after review of the tests above:: Ascitis Bilateral pleural effusion Admission Indicated Admission indicated?: not indicated Explain why admission is indicated or not indicated:: With no condition needing emergent intervention, there was no indication for admission. Admission Request Was there a request for admission?: No Disposition Plan Disposition Plan: Discharge Discharge Attestation Discharge Attestation: The patient and all family members were given an opportunity to ask questions and understood the discharge instructions. Discharge instructions specifically effects, indications for sooner follow up or return to the emergency department, and the expected course of current diagnosis. Patient condition: Stable Discharge Plan Plan Patient Disposition: HOME (Self Care) Prescriptions/Referrals Prescriptions/Med Rec: New furosemide [Lasix] 40 mg tablet 40 mg PO QAM Qty: 30 0RF No Action prednisone 10 mg tablet 10 mg PO QDAY hydroxychloroquine 200 mg tablet 200 mg PO QDAY ondansetron 4 mg tablet,disintegrating 4 mg PO Q8H PRN (Reason: nausea and vomiting) Qty: 20 0RF Referrals: No Primary/Family,Physician [Referring Provider] - In 1 week Problem List Clinical Impression: Ascites, Bilateral pleural effusion Patient/Caregiver Discharge Instructions Discharge Activity: activity as tolerated Education Materials: ED Ascites, ED Pleural Effusion Additional Instructions: Discharge Instructions from Dr. Figueroa: --As you requested, you are being discharged home. Our interventional radiologist will be here tomorrow. --Your symptoms are due to ascites and pleural effusion.? See attached handouts. --To help urinate out the extra fluid, take Lasix 40 mg every morning. --When sitting or resting and sleeping, elevate the head of bed and elevate your feet/ankles above your waist level.? This is extremely important to get the extra fluid back into your circulation so you can urinate out the extra fluid. --Limit all oral fluid intake to less than 4 cups per 24 hours. Then don't go out of your way to drink too much fluid--only when your body tells you to drink.?? --Eat a banana daily because Lasix can lower your potassium level.?? --See your private doctor tomorrow or return here for further care by our interventional radiologist. --Seek immediate medical care with worsening or with any concerns.? Print Language: Maltese Stand Alone Forms: Torie Award Info., Patient Portal Info Letter
--- NOTE | 2025-02-07 09:10 | EKG_ITS ---
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
--- NOTE | 2025-02-07 09:11 | XR_ITS ---
Examination: Abdomen sonogram, Limited Date and time of exam: February 07, 2025, 0959 hours INDICATIONS: Abdominal distention today Technique: Real-time menendez scale transabdominal sonographic images of the upper abdomen obtained. Findings: Gallbladder not visualized Common bile duct 0.72 cm no stones Pancreas obscured by bowel gas Liver 17.4 cm no focal liver lesions moderate ascites Normal hepatopetal portal venous flow Patent IVC IMPRESSION: Moderate hepatomegaly Moderate ascites
--- NOTE | 2025-02-07 09:11 | XR_ITS ---
EXAMINATION: AP chest single view TECHNIQUE: AP portable semiupright chest single view Date and time: February 07, 2025, 1134 hours, comparison December 31, 2024 INDICATIONS: Shortness of breath today. FINDINGS: Normal heart size Bibasilar pneumonia. Significant bilateral pleural effusions. Right internal jugular dialysis catheter tips right atrium IMPRESSION: Bibasilar pneumonia with significant bilateral pleural effusions
[2025-02-07 09:43] VITALS: BP 99/75; PULSE 103; RESP 18; O2SAT 99
[2025-02-07 09:47] LABS: Base Excess, Venous 1 (-3-3); O2 Saturation, Venous 73 % (96-97); PCO2, Venous 44 mmHg (36-56); PO2, Venous 40 mmHg (15-58); pH, Venous 7.38 (7.33-7.66)
[2025-02-07 09:48] LABS: Basophils # (Auto) 0.0 Thou/mm3 (0.0-0.2); Basophils % (Auto) 0 % (0-2.5); Eosinophils # (Auto) 0.2 Thou/mm3 (0.0-0.5); Eosinophils % (Auto) 1 % (0-10); Hematocrit 29.6 % (36.0-46.0); Hemoglobin 9.5 g/dL (12.0-16.0); Immature Granulocytes Auto 0.10 Thou/mm3 (0.00-0.00); Lactate (Lactic Acid) 2.1 mMol/L (0.4-2.0); Lymphocytes # (Auto) 1.5 Thou/mm3 (1.0-4.8); Lymphocytes % (Auto) 12 % (10-50); Mean Corpuscular HGB Conc 32.1 g/dl (31.0-37.0); Mean Corpuscular Hemoglobin 31.6 pg (25.0-35.0); Mean Corpuscular Volume 98 fL (80-100); Monocytes # (Auto) 0.7 Thou/mm3 (0.0-0.8); Monocytes % (Auto) 5 % (0-12); Neutrophils # (Auto) 11.0 Thou/mm3 (1.8-7.7); Neutrophils % (Auto) 82 % (37-80); Nucleated Red Blood Cell # 0.00 Thou/mm3 (0.00-0.00); Nucleated Red Blood Cell % 0 /100 WBC (0); Platelet Count 348 Thou/mm3 (140-440); RDW Standard Deviation 56.3 fL (36.4-46.3); Red Blood Count 3.01 Miln/mm3 (4.00-5.20); White Blood Count 13.4 Thou/mm3 (3.6-11.0)
[2025-02-07 10:08] LABS: HCG,Qualitative Serum Negative
[2025-02-07 10:12] LABS: Ammonia 13 uMol/L (11-32)
[2025-02-07 10:13] LABS: INR 1.0 (0.9-1.3); Partial Thromboplastin Time 28.5 Seconds (22.0-36.0); Prothrombin Time 10.9 Seconds (9.0-12.2)
[2025-02-07 10:22] LABS: Alanine Aminotransferase 34 U/L (10-49); Albumin, Serum 2.5 gm/dL (3.5-5.0); Albumin/Globulin Ratio 0.6 (1.2-2.2); Alcohol, Blood Medical < 3.0 mg/dL (0-10.0); Alkaline Phosphatase 707 U/L (46-116); Amylase 61 U/L (30-118); Anion Gap 10 (7-16); Aspartate Amino Transferase 168 U/L (0-34); BUN/Creatinine Ratio 18 Ratio (12-20); Bilirubin,Direct 0.4 mg/dL (0.0-0.3); Bilirubin,Total 0.6 mg/dL (0.3-1.2); Blood Urea Nitrogen 9 mg/dL (9-23); C-Reactive Protein 2.4 mg/dL (0.0-0.9); Calcium 7.7 mg/dL (8.3-10.6); Calcium (Corrected) 8.9 mg/dL (8.5-10.1); Carbon Dioxide 24.1 mMol/L (20.0-31.0); Chloride 107 mMol/L (98-107); Creatinine (Component) 0.5 mg/dL (0.6-1.3); Estimated Creatinine Clearance 117.8 mL/min (>60); Globulin 4.4 gm/dL (2.3-3.5); Glucose 79 mg/dL (74-106); Lipase 33 U/L (12-53); Magnesium 2.0 mg/dL (1.6-2.6); Osmolality,Calculated 278 (275-295); Potassium 3.7 mMol/L (3.4-5.1); Procalcitonin 0.88 ng/ml (0.0-0.49); Sodium 141 mMol/L (136-145); Thyroid Stimulating Hormone 2.03 uIU/mL (0.55-4.78); Total Protein 6.9 gm/dL (5.7-8.2); Troponin I < 0.002 ng/mL (0.0-0.045); eGFR > 60 See Note
[2025-02-07 10:32] LABS: Influenza A Ag Negative; Influenza B Ag Negative
[2025-02-07 10:36] LABS: Sed Rate (ESR) 54 mm/hr (0-20)
[2025-02-07 10:54] LABS: B-Type Natriuretic Peptide 26 pg/mL (0-100)
[2025-02-07 10:56] VITALS: BP 90/60; PULSE 94; RESP 18; TEMP 36.7; O2SAT 97
[2025-02-07 11:53] LABS: Collection Type, Urine Clean Catch
--- NOTE | 2025-02-07 12:25 | PC.NURSE ---
DR. FIGUEROA MADE AWARE PATIENT IS REFUSING CT SCAN AT THIS TIME. PATIENT STATED SHE KNOWS WHAT IS WRONG WITH HER AND KNOWS THAT SHE NEEDS PARACENTESIS AND WOULD LIKE TO KNOW WHEN SHE WILL BE HAVING THIS DONE. PER DR. FIGUEROA HE WILL SPEAK TO PATIENT. VITALS STABLE. PLAN OF CARE ONGOING
[2025-02-07 12:41] LABS: Reflex Lactate? Y
[2025-02-07 12:44] LABS: Bilirubin,Urine Negative (Negative); Blood,Urine 1+ (Negative); Clarity,Urine Clear (Clear/Hazy); Color,Urine Yellow (Lt Yel-Yel); Culture Indicated,Urine Not Indicated; Glucose, Urine Negative (Negative); Ketones,Urine Negative (Negative); Leukocyte Esterase,Urine Negative (Negative); Nitrite,Urine Negative (Negative); PH,Urine 6.0 (5.0-7.0); Protein,Urine 1+ (Neg - Trace); RBC,Urine 5 /hpf (0-3); Specific Gravity,Urine 1.027 (1.001-1.035); Squamous Epithelial Cell,Urine 1 /hpf (0-5); Urobilinogen,Urine Negative mg/dL (0.0-1.0); WBC,Urine 4 /hpf (0-5)
[2025-02-07 12:46] LABS: Amphetamine/Methamp Scrn,U Negative (Negative); Barbiturate Screen,Urine Negative (Negative); Benzodiazepines Screen,Urine Negative (Negative); Benzoylecgonine Screen, Ur Negative (Negative); Fentanyl Screen,Urine Negative (Negative); Opiate Screen,Urine Negative (Negative); THC Screen,Urine Negative (Negative)
[2025-02-07 13:19] VITALS: BP 116/96; PULSE 108; RESP 19; TEMP 37; O2SAT 98
== END 2025-02-07 13:21 | disposition home or self-care (01) ==
PROVIDERS: Emergency Provider Emergency Medicine; PCP Family Medicine
DX: J90 Pleural effusion, not elsewhere classified (principal); R18.8 Other ascites; K76.9 Liver disease, unspecified
CPT/HCPCS: 36415; 51701; 71045; 76705; 80053; 80307; 80320; 81001; 82140; 82150; 82248; 82803; 83605; 83690; 83735; 83880; 84145; 84443; 84484; 84703; 85025; 85610; 85652; 85730; 86140; 87040; 87502; 87635; 93005; 99283; G0480

== ENCOUNTER 2025-02-08 09:20 | Emergency (ER) | payer MEDICAID, SELFPAY ==
[2025-02-08 09:20] VITALS: BMI 17.2
--- NOTE | 2025-02-08 09:28 | PD.EDABDPN ---
ED Abdominal Pain RME/HPI General Chief Complaint: Abdominal Pain Stated complaint: needs paracentesis Time seen by provider: 02/08/25 09:28 Arrival date/time: 02/08/25 09:20 RME / HPI RME / HPI narrative: See [facility] for Dr. Gómez's HPI documentation. Related Data Home Medications ?Medication ?Instructions ?Recorded ?Confirmed hydroxychloroquine 200 mg tablet 200 mg PO QDAY 01/01/25 01/01/25 prednisone 10 mg tablet 10 mg PO QDAY 01/01/25 01/01/25 Previous Rx's ?Medication ?Instructions ?Recorded ondansetron 4 mg disintegrating 4 mg PO Q8H PRN nausea and 07/03/24 tablet vomiting #20 tabs furosemide 40 mg tablet (Lasix) 40 mg PO QAM #30 tabs 02/07/25 Allergies Allergy/AdvReac Type Severity Reaction Status Date / Time No Known Allergies Allergy Verified 02/08/25 09:22 Review of Systems Review of Systems Systems Reviewed: All systems reviewed, normal except as documented Past Medical History Past Medical History CARDIAC: Positive Edema and Hypotension GASTROINTESTINAL: Positive Gastrointestinal Disorders and Cirrhosis GENITOURINARY: Positive Genitourinary Disorders, Renal Disease and Dialysis MUSCULOSKELETAL: Positive Musculoskeletal Disorders and Fibromyalgia HEMATOLOGIC: Positive Blood Disorders and Anemia OTHER HISTORY: Positive Hospitalization, Autoimmune Disease and Blood Transfusions Social History SMOKING STATUS: Never smoker SUBSTANCE USE: does not use ED Exam Narrative Physical exam: See [facility] for Dr. Gómez's physical exam documentation. Course Quality Measures none Orders Category Date Time Status Saline [Insert IV] NOW Care 02/08/25 09:34 Completed Bilirubin,Direct Stat Lab 02/08/25 09:57 Completed CBC Stat Lab 02/08/25 09:57 Completed CMP [Comprehensive Metabolic Panel] Stat Lab 02/08/25 09:57 Completed CRP [C-Reactive Protein] Stat Lab 02/08/25 09:57 Completed ESR [Sed Rate (ESR)] Stat Lab 02/08/25 09:57 Completed Magnesium Stat Lab 02/08/25 09:57 Completed PT [Prothrombin Time with INR] Stat Lab 02/08/25 09:57 Completed PTT [Partial Thromboplastin Time] Stat Lab 02/08/25 09:57 Completed Procalcitonin Stat Lab 02/08/25 09:57 Completed Vital Signs Vital signs: Vital Signs Temperature 97.8 F 02/08/25 09:43 Pulse Rate 110 H 02/08/25 09:43 Respiratory Rate 16 02/08/25 09:43 Blood Pressure 104/73 02/08/25 09:43 Pulse Oximetry (%) 99 02/08/25 09:43 Oxygen Delivery Method Room Air 02/08/25 09:43 Pulse ox is 99% on room air which is adequate. Abdominal Pain MDM MDM Narrative MDM Narrative:: This section includes all my notes and documentations, including HPI, PE, and ED course. Julian Gómez MD HPI: 29-year-old female here requesting paracentesis for ascites. ROS: All negative except as documented in HPI. Physical Exam: General: Alert and oriented. Eyes: Conjunctivae and lids clear. ENT: No nasal congestion. Neck: Supple. Lungs: No respiratory distress. Abdomen: Soft and nontender. Normal bowel sounds. No distension. No rebound or guarding. Skin: Warm and dry. Neuro: Alert and oriented X 3. I reviewed all diagnostic test results: Blood tests unremarkable. At this point, diagnoses include: Ascites When I looked for the patient, I was told the patient left AMA. Julian Gómez MD Patient data External records reviewed:: [facility] previous records Clinical information provided by:: patient Social determinants that could affect healthcare access:: none Patient has the following chronic illnesses:: lupus, Sjogren syndrome, Supa's, ascites from chronic liver disease How is presenting disease/condition affected by chronic disease/condition?: exacerbated by Evaluation data The following diagnostics were reviewed and interpreted by me:: lab results and radiology exam(s) Lab and/or radiology exams considered but not ordered:: None Interpretation Summary: I reviewed all diagnostic test results: Blood tests unremarkable Medications / Prescriptions Medications or Prescriptions considered but not ordered:: None Medication administrations:: None Consultations Consultation(s) initiated? (list below): No Diagnosis Differential diagnosis abdominal pain: abdominal pain and other (ascites, liver cirrhosis) Most likely diagnosis given after review of the tests above:: Ascites Admission Indicated Admission indicated?: not indicated Explain why admission is indicated or not indicated:: Patient left against medical advice Admission Request Was there a request for admission?: No Disposition Plan Disposition Plan: other (specify) (Patient left AMA) Discharge Plan Plan Patient Disposition: Left Against Medical Advice Prescriptions/Referrals Prescriptions/Med Rec: No Action prednisone 10 mg tablet 10 mg PO QDAY hydroxychloroquine 200 mg tablet 200 mg PO QDAY furosemide [Lasix] 40 mg tablet 40 mg PO QAM Qty: 30 0RF ondansetron 4 mg tablet,disintegrating 4 mg PO Q8H PRN (Reason: nausea and vomiting) Qty: 20 0RF Referrals: Marek Bullock MD [Primary Care Provider, Family Practice] - In 1 week Problem List Clinical Impression: Ascites Patient/Caregiver Discharge Instructions Print Language: Ghanaian
[2025-02-08 09:43] VITALS: BP 104/73; PULSE 110; RESP 16; TEMP 36.6; O2SAT 99
[2025-02-08 10:09] LABS: Basophils # (Auto) 0.1 Thou/mm3 (0.0-0.2); Basophils % (Auto) 1 % (0-2.5); Eosinophils # (Auto) 0.2 Thou/mm3 (0.0-0.5); Eosinophils % (Auto) 1 % (0-10); Hematocrit 29.4 % (36.0-46.0); Hemoglobin 9.4 g/dL (12.0-16.0); Immature Granulocytes Auto 0.13 Thou/mm3 (0.00-0.00); Lymphocytes # (Auto) 1.3 Thou/mm3 (1.0-4.8); Lymphocytes % (Auto) 9 % (10-50); Mean Corpuscular HGB Conc 32.0 g/dl (31.0-37.0); Mean Corpuscular Hemoglobin 31.8 pg (25.0-35.0); Mean Corpuscular Volume 99 fL (80-100); Monocytes # (Auto) 0.5 Thou/mm3 (0.0-0.8); Monocytes % (Auto) 4 % (0-12); Neutrophils # (Auto) 11.8 Thou/mm3 (1.8-7.7); Neutrophils % (Auto) 85 % (37-80); Nucleated Red Blood Cell # 0.00 Thou/mm3 (0.00-0.00); Nucleated Red Blood Cell % 0 /100 WBC (0); Platelet Count 419 Thou/mm3 (140-440); RDW Standard Deviation 56.8 fL (36.4-46.3); Red Blood Count 2.96 Miln/mm3 (4.00-5.20); White Blood Count 13.9 Thou/mm3 (3.6-11.0)
[2025-02-08 10:22] LABS: INR 1.0 (0.9-1.3); Partial Thromboplastin Time 27.4 Seconds (22.0-36.0); Prothrombin Time 10.7 Seconds (9.0-12.2)
[2025-02-08 10:36] LABS: Alanine Aminotransferase 31 U/L (10-49); Albumin, Serum 2.5 gm/dL (3.5-5.0); Albumin/Globulin Ratio 0.6 (1.2-2.2); Alkaline Phosphatase 671 U/L (46-116); Anion Gap 9 (7-16); Aspartate Amino Transferase 160 U/L (0-34); BUN/Creatinine Ratio 15 Ratio (12-20); Bilirubin,Direct 0.4 mg/dL (0.0-0.3); Bilirubin,Total 0.6 mg/dL (0.3-1.2); Blood Urea Nitrogen 9 mg/dL (9-23); C-Reactive Protein 2.3 mg/dL (0.0-0.9); Calcium 8.1 mg/dL (8.3-10.6); Calcium (Corrected) 9.3 mg/dL (8.5-10.1); Carbon Dioxide 24.2 mMol/L (20.0-31.0); Chloride 106 mMol/L (98-107); Creatinine (Component) 0.6 mg/dL (0.6-1.3); Estimated Creatinine Clearance 98.2 mL/min (>60); Globulin 4.5 gm/dL (2.3-3.5); Glucose 86 mg/dL (74-106); Magnesium 2.0 mg/dL (1.6-2.6); Osmolality,Calculated 275 (275-295); Potassium 3.8 mMol/L (3.4-5.1); Procalcitonin 0.69 ng/ml (0.0-0.49); Sodium 139 mMol/L (136-145); Total Protein 7.0 gm/dL (5.7-8.2); eGFR > 60 See Note
[2025-02-08 11:39] LABS: Sed Rate (ESR) 61 mm/hr (0-20)
== END 2025-02-08 16:00 | disposition left against medical advice (07) ==
PROVIDERS: Emergency Provider Emergency Medicine; PCP Family Medicine
DX: R18.8 Other ascites (principal); Z53.29 Procedure and treatment not carried out because of patient's decision for other reasons
CPT/HCPCS: 36415; 80053; 82248; 83735; 84145; 85025; 85610; 85652; 85730; 86140; 99282

== ENCOUNTER 2025-03-04 08:17 | Emergency (ER) | payer MEDICAID, SELFPAY ==
[2025-03-04 08:18] VITALS: BMI 17.8
[2025-03-04 08:27] VITALS: BP 109/78; PULSE 112; RESP 18; TEMP 36.8; O2SAT 97
--- NOTE | 2025-03-04 08:46 | PD.EDRME ---
Rapid Medical Screening Exam RME Arrival date/time: 03/04/25 08:17 Chief Complaint: Abdominal Pain Time Seen by Provider: 03/04/25 08:20 Vital signs: Vital Signs Temperature 98.2 F 03/04/25 08:27 Pulse Rate 112 H 03/04/25 08:27 Respiratory Rate 18 03/04/25 08:27 Blood Pressure 109/78 03/04/25 08:27 Pulse Oximetry (%) 97 03/04/25 08:27 Oxygen Delivery Method Room Air 03/04/25 08:27 RME Narrative: 29-year-old female past medical history of ascites whose had prior paracentesis presents to the ER requesting drainage as she is feeling minimally short of breath from her abdominal fullness. I briefly performed a screening evaluation to initiate work-up and expedite care. Complete history, physical exam, and plan of care is deferred to the provider in the main ED. Exam: Head: Normocephalic, atraumatic. Respiratory: Normal effort. No respiratory distress or accessory muscle use. Neuro: Speech normal. Skin: Warm, dry, normal color. Psych: Pleasant. Normal affect. Cooperative. Clinical Impression: Ascites
--- NOTE | 2025-03-04 08:47 | XR_ITS ---
Upright PA chest film mental 03/04/2025 at 9:12 a.m. Comparison study 02/07/2025. CLINICAL HISTORY: Abdominal pain and shortness of breath for 3 days, history of ascites and paracentesis FINDINGS: Heart size appears normal. There is elevation of right and left hemidiaphragms, which was also seen on the previous chest film. Surgical clips are seen in the gallbladder fossa There is extensive consolidation throughout the entire lower half of the right lung with air bronchograms. This was present on the previous chest film although these findings have increased in severity in size since the previous chest film There is also patchy and confluent alveolar edema in the basal segments of the left lower lobe with pleural effusion. These findings were also present on the previous chest film and they are unchanged. A dual-lumen tunneled central venous catheter is in good position. IMPRESSION: 1. Very marked elevation of both right and left hemidiaphragms, also present on previous chest for 2 very extensive consolidation throughout the lower half of the right lung, patchy consolidation was seen in this region on the last chest film but these findings have increased significantly in severity. 3 there is less prominent patchy alveolar consolidation in a moderately prominent pleural effusion seen at the left lung base. The findings here are not significantly changed since the previous chest 4. As best I can tell I believe that the heart size is normal and there is no evidence of pulmonary venous hypertension. Hence the marked abnormalities in the lower lung zones are not related to CHF
--- NOTE | 2025-03-04 08:47 | EKG_ITS ---
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
[2025-03-04 09:32] LABS: Basophils # (Auto) 0.1 Thou/mm3 (0.0-0.2); Basophils % (Auto) 1 % (0-2.5); Eosinophils # (Auto) 0.2 Thou/mm3 (0.0-0.5); Eosinophils % (Auto) 1 % (0-10); Hematocrit 30.6 % (36.0-46.0); Hemoglobin 9.8 g/dL (12.0-16.0); Immature Granulocytes Auto 0.23 Thou/mm3 (0.00-0.00); Lymphocytes # (Auto) 1.6 Thou/mm3 (1.0-4.8); Lymphocytes % (Auto) 10 % (10-50); Mean Corpuscular HGB Conc 32.0 g/dl (31.0-37.0); Mean Corpuscular Hemoglobin 31.3 pg (25.0-35.0); Mean Corpuscular Volume 98 fL (80-100); Monocytes # (Auto) 1.0 Thou/mm3 (0.0-0.8); Monocytes % (Auto) 6 % (0-12); Neutrophils # (Auto) 14.0 Thou/mm3 (1.8-7.7); Neutrophils % (Auto) 82 % (37-80); Nucleated Red Blood Cell # 0.00 Thou/mm3 (0.00-0.00); Nucleated Red Blood Cell % 0 /100 WBC (0); Platelet Count 336 Thou/mm3 (140-440); RDW Standard Deviation 54.4 fL (36.4-46.3); Red Blood Count 3.13 Miln/mm3 (4.00-5.20); White Blood Count 17.1 Thou/mm3 (3.6-11.0)
--- NOTE | 2025-03-04 09:34 | XR_ITS ---
Examination: Ultrasound-guided paracentesis Abdominal sonogram limited Date and time of exam: 03/04/2025, 12:40 p.m. INDICATION: Ascites Informed consent provided. A timeout was completed verifying correct patient, procedure, site, positioning, and special adequate movement if applicable. Technique: Multiple sonographic images of the abdomen have been obtained. Appropriate area for paracentesis was marked. Local anesthesia is obtained with 1% lidocaine. Yueh catheter is successfully introduced. Findings: Abdominal sonographic images demonstrate sufficient ascitic fluid for paracentesis. After placing the Yueh catheter, 10,500 cc of fluid were successfully removed. During and after completion of the procedure the patient appear in satisfactory and stable condition with no complications observed. Estimated blood loss 0 cc Impression: Abdominal ascites Successful ultrasound-guided paracentesis as described above
[2025-03-04 09:47] LABS: HCG,Qualitative Serum Negative
[2025-03-04 09:51] LABS: Alanine Aminotransferase 24 U/L (10-49); Albumin, Serum 2.3 gm/dL (3.5-5.0); Albumin/Globulin Ratio 0.5 (1.2-2.2); Alkaline Phosphatase 722 U/L (46-116); Anion Gap 11 (7-16); Aspartate Amino Transferase 137 U/L (0-34); BUN/Creatinine Ratio 24 Ratio (12-20); Bilirubin,Total 0.5 mg/dL (0.3-1.2); Blood Urea Nitrogen 17 mg/dL (9-23); Calcium 7.4 mg/dL (8.3-10.6); Calcium (Corrected) 8.8 mg/dL (8.5-10.1); Carbon Dioxide 21.4 mMol/L (20.0-31.0); Chloride 110 mMol/L (98-107); Creatinine (Component) 0.7 mg/dL (0.6-1.3); Estimated Creatinine Clearance 87.5 mL/min (>60); Globulin 5.0 gm/dL (2.3-3.5); Glucose 90 mg/dL (74-106); Lipase 25 U/L (12-53); Osmolality,Calculated 284 (275-295); Potassium 3.7 mMol/L (3.4-5.1); Sodium 142 mMol/L (136-145); Total Protein 7.3 gm/dL (5.7-8.2); eGFR > 60 See Note
[2025-03-04 09:55] LABS: INR 1.0 (0.9-1.3); Prothrombin Time 10.4 Seconds (9.0-12.2)
[2025-03-04 15:05] VITALS: BP 91/53; PULSE 94; RESP 20; TEMP 36.8; O2SAT 95
[2025-03-04 15:20] LABS: Lactate (Lactic Acid) 1.3 mMol/L (0.4-2.0)
--- NOTE | 2025-03-04 15:28 | PD.EDADULT ---
ED General RME/HPI General Chief complaint: Abdominal Pain Stated complaint: PARACENTESIS Time Seen by Provider: 03/04/25 08:20 Arrival date/time: 03/04/25 08:17 RME / HPI RME / HPI narrative: 29-year-old female past medical history of ascites whose had prior paracentesis presents to the ER requesting drainage as she is feeling minimally short of breath from her abdominal fullness. I briefly performed a screening evaluation to initiate work-up and expedite care. Complete history, physical exam, and plan of care is deferred to the provider in the main ED. Exam: Head: Normocephalic, atraumatic. Respiratory: Normal effort. No respiratory distress or accessory muscle use. Neuro: Speech normal. Skin: Warm, dry, normal color. Psych: Pleasant. Normal affect. Cooperative. Impression: Ascites Related Data Home Medications ?Medication ?Instructions ?Recorded ?Confirmed hydroxychloroquine 200 mg tablet 200 mg PO QDAY 01/01/25 01/01/25 prednisone 10 mg tablet 10 mg PO QDAY 01/01/25 01/01/25 Previous Rx's ?Medication ?Instructions ?Recorded ondansetron 4 mg disintegrating 4 mg PO Q8H PRN nausea and 07/03/24 tablet vomiting #20 tabs furosemide 40 mg tablet (Lasix) 40 mg PO QAM #30 tabs 02/07/25 carvedilol 3.125 mg tablet (Coreg) 3.125 mg PO BID 1 month #60 tabs 03/04/25 furosemide 40 mg tablet (Lasix) 40 mg PO QDAY PRN edema 1 month 03/04/25 #30 tabs spironolactone 50 mg tablet 50 mg PO QDAY 1 month #30 tabs 03/04/25 Allergies Allergy/AdvReac Type Severity Reaction Status Date / Time No Known Allergies Allergy Verified 03/04/25 08:18 ED Exam Narrative Physical exam: Physical Exam: GENERAL: Awake, answering questions appropriately, appears stated age, appears frail HEENT: NC/AT. Moist mucosa. PERRLA/EOMI. CARDIO: Tachycardic, no obvious murmurs, no JVD. PULM: No coughing or visible SOB. Lungs CTA B/L. GI: Abdomen soft, NT/ND, +BS. SKIN/MSK/EXT: No wounds/discoloration/rashes/edema/amputations noted. +Pedal pulses present B/L. Right sided tunneled catheter for dialysis, currently not in use NEURO: Oriented x3, Moves extremities x4, no focal neurologic deficits noted. Course Quality Measures none Orders Category Date Time Status CT Screening NOW Care 03/04/25 14:41 Active EKG (ED ONLY) *Do not use* NOW Care 03/04/25 08:48 Completed NPO NEEDED Care 03/04/25 08:47 Active NPO NOW Care 03/04/25 08:47 Active Diet NPO (NOW) Diet 03/04/25 08:[address] abdomen pelvis w con Stat Exams 03/04/25 14:41 Ordered EKG (ED Only) Stat Exams 03/04/25 08:47 Draft US paracentesis abd w/image Stat Exams 03/04/25 09:34 Taken XR chest 1V Stat Exams 03/04/25 08:47 Completed Albumin, Peritoneal Fluid Routine Lab 03/04/25 15:26 Ordered Amylase,Peritoneal Fluid Routine Lab 03/04/25 15:26 Ordered Blood Culture (Lab) Stat Lab 03/04/25 15:08 Received Body Fld Cult w Christine & Gram St Routine Lab 03/04/25 15:26 Ordered Body Fld Culture & Gram Stain Stat Lab 03/04/25 14:42 Ordered CBC Stat Lab 03/04/25 09:00 Completed CMP [Comprehensive Metabolic Panel] Stat Lab 03/04/25 09:00 Completed Glucose,Peritoneal Fluid Routine Lab 03/04/25 15:26 Ordered HCG,Qualitative Serum Stat Lab 03/04/25 09:00 Completed INR [Prothrombin Time with INR] Stat Lab 03/04/25 09:00 Completed LDH,Peritoneal Fluid Stat Lab 03/04/25 14:42 Ordered Lactic Acid [Lactate (Lactic Acid)] Stat Lab 03/04/25 15:08 Completed Lipase Stat Lab 03/04/25 09:00 Completed Misc Fluid, Cell Cnt/Diff Stat Lab 03/04/25 14:42 Ordered Peritoneal Cell Cnt/Diff Routine Lab 03/04/25 15:26 Ordered Protein Total,Peritoneal Fluid Stat Lab 03/04/25 14:42 Ordered Urinalysis Stat Lab 03/04/25 08:47 Ordered Urine Culture Stat Lab 03/04/25 08:47 Ordered Albumin Human 25% Ivpb [Albuminar-25 Ivpb] Med 03/04/25 17:17 Discontinued 12.5 gm in 50 ml IV X1 Albumin Human-Kjda 25% Ivpb [Albuminex 25% Ivpb] Med 03/04/25 15:22 Discontinued 25 gm in 100 ml IV QDAY Albumin Human-Kjda 25% Ivpb [Albuminex 25% Ivpb] Med 03/04/25 16:17 Discontinued 25 gm in 100 ml IV QDAY Albumin Human-Kjda 25% Ivpb [Albuminex 25% Ivpb] Med 03/04/25 15:18 Discontinued 25 gm in 100 ml IV X1 Vital Signs Vital signs: Vital Signs Temperature 98.2 F 03/04/25 08:27 Pulse Rate 112 H 03/04/25 08:27 Respiratory Rate 18 03/04/25 08:27 Blood Pressure 109/78 03/04/25 08:27 Pulse Oximetry (%) 97 03/04/25 08:27 Oxygen Delivery Method Room Air 03/04/25 08:27 Discharge Plan Plan Patient Disposition: HOME (Self Care) Patient condition on transfer: Stable Prescriptions/Referrals Prescriptions/Med Rec: New carvedilol [Coreg] 3.125 mg tablet 3.125 mg PO BID 30 Days Qty: 60 0RF Rx Instructions: must administer with a meal/food spironolactone 50 mg tablet 50 mg PO QDAY 30 Days Qty: 30 0RF furosemide [Lasix] 40 mg tablet 40 mg PO QDAY PRN (Reason: edema) 30 Days Qty: 30 0RF No Action prednisone 10 mg tablet 10 mg PO QDAY hydroxychloroquine 200 mg tablet 200 mg PO QDAY furosemide [Lasix] 40 mg tablet 40 mg PO QAM Qty: 30 0RF ondansetron 4 mg tablet,disintegrating 4 mg PO Q8H PRN (Reason: nausea and vomiting) Qty: 20 0RF Referrals: Marek Bullock MD [Primary Care Provider, Family Practice] - In 1 week Problem List Clinical Impression: Ascites Patient/Caregiver Discharge Instructions Education Materials: Paracentesis Dc Additional Instructions: Please take carvedilol 3.125 mg by mouth twice a day for esophageal variceal prophylaxis Please take spironolactone 50 mg for liver cirrhosis with associated ascites Take Lasix 40 mg by mouth daily as needed if he noticed increased level of edema or ascites Please follow-up with your PCP within 5 days and ask for a stat GI referral with transplant center for MASLD associated liver cirrhosis If your symptoms worsen or if you develop new chest pain, shortness of breath, worsening ascites, bleeding or confusion - please come back to the ER immediately Print Language: Yi Stand Alone Forms: Torie Award Info., Patient Portal Info Letter MDM Narrative MDM hospital course (for use when minimal MDM required): HPI: 29-year-old female with past medical history of Sjogren, 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 Patient states that she has been referred in the past by her PCP to GI but she has not been seen yet. Patient is not on any liver transplant list; moreover, she denies any alcohol use. She has multiple ED visits for reaccumulation of ascitic fluid and is not on any liver cirrhosis medications. On examination, please refer to the physical exam above; patient presented normotensive 109/78, tachycardic with heart rate 112, respiratory of 18, afebrile satting 97 on room air. Pertinent lab findings included elevated WBC of 17.1, hemoglobin of 9.8, lactic acid 1.3, corrected calcium of 8.8, T. bili of 0.5, AST 137, ALT 24, alk phos of 722. Chest x-ray showed extensive consolidation throughout the left lower half of the right lung some patchy alveolar consolidation and pleural effusion seen in the left lung base. EKG showing sinus tachycardia without any concerning ST segment changes but there was low voltage noted. Ultrasound paracentesis completed by IR with 10 L of fluid removed. #MASLD related liver cirrhosis #Decompensated liver cirrhosis, ascites As noted above, patient has extensive history of NSAID related cirrhosis not on any current medications She does not follow her GI physician yet and has not been put on the transplant list Chest x-ray showed the above findings but did not clinically correlate as the patient denies having shortness of breath and is saturating well on room air. Given a total of 62.5 g of IV albumin after large-volume paracentesis Plan: Will discharge patient with the following strict instructions Please take carvedilol 3.125 mg by mouth twice a day for esophageal variceal prophylaxis Please take spironolactone 50 mg for liver cirrhosis with associated ascites Take Lasix 40 mg by mouth daily as needed if he noticed increased level of edema or ascites Please follow-up with your PCP within 5 days and ask for a stat GI referral with transplant center for MASLD associated liver cirrhosis If your symptoms worsen or if you develop new chest pain, shortness of breath, worsening ascites, bleeding or confusion - please come back to the ER immediately Patient seen and assessed with attending Dr. Eusebia Blankenship, DO PGY-2 Internal Medicine - GME Medication Administration(s) Medication Administration History Discontinued Medications Albumin Human (Albuminex 25% Ivpb) 25 gm in 100 mls @ 100 mls/hr IV X1 ONE Stop: 03/04/25 16:17 Last Infusion: 03/04/25 17:09 Dose: Infused Documented By: Admin: 03/04/25 16:09 Dose: 100 mls/hr Documented By: EF Albumin Human (Albuminex 25% Ivpb) 25 gm in 100 mls @ 100 mls/hr IV QDAY NATHALY Stop: 03/07/25 15:21 Last Admin: 03/04/25 16:06 Dose: Not Given Documented By: EF Non-Admin Reason: Cancelled by Provider Albumin Human (Albuminar-25 Ivpb) 12.5 gm in 50 mls @ 100 mls/hr IV X1 ONE Stop: 03/04/25 17:46 Albumin Human (Albuminex 25% Ivpb) 25 gm in 100 mls @ 100 mls/hr IV QDAY ONE Stop: 03/04/25 17:16 Last Admin: 03/04/25 17:10 Dose: 100 mls/hr Documented By: EF
--- NOTE | 2025-03-04 16:05 | PC.NURSE ---
patient refusing ct MD olvera made aware
[2025-03-04] MEDS: ALBUMIN HUMAN-KJDA 25% IVPB 25 GM/100 ML BTL IV ×2 (16:09→17:10)
[2025-03-04 16:14] VITALS: BP 98/60; PULSE 111; RESP 16; O2SAT 95
[2025-03-04 17:58] VITALS: BP 101/69; PULSE 113; RESP 18; TEMP 36.8; O2SAT 97
[2025-03-04] MEDS: ALBUMIN HUMAN 25% IVPB 12.5 GM/50 ML BTL IV (18:28)
== END 2025-03-04 19:06 | disposition home or self-care (01) ==
PROVIDERS: Physician Assistant; Emergency Provider Family Medicine; PCP Family Medicine
DX: K74.60 Unspecified cirrhosis of liver (principal); R18.8 Other ascites; R00.0 Tachycardia, unspecified
CPT/HCPCS: 49083; 36415; 71045; 80053; 81001; 82042; 82150; 82945; 83605; 83615; 83690; 84157; 84703; 85025; 85610; 87040; 87070; 87075; 87086; 87205; 89051; 93005; 96365; 96366; 99284; C1729; P9047

== ENCOUNTER 2025-03-22 09:27 | Emergency (ER) | payer MEDICAID, SELFPAY ==
[2025-03-22 09:38] VITALS: BP 99/68; PULSE 102; RESP 18; TEMP 36.4; O2SAT 97; BMI 17.2
--- NOTE | 2025-03-22 09:48 | XR_ITS ---
Examination: Ultrasound-guided paracentesis Abdominal sonogram limited Date and time of exam: 03/22/2025, 12:47 p.m. INDICATION: Ascites Informed consent provided. A timeout was completed verifying correct patient, procedure, site, positioning, and special adequate movement if applicable. Technique: Multiple sonographic images of the abdomen have been obtained. Appropriate area for paracentesis was marked. Local anesthesia is obtained with 1% lidocaine. Yueh catheter is successfully introduced. Findings: Abdominal sonographic images demonstrate sufficient ascitic fluid for paracentesis. After placing the Yueh catheter, 4900 cc of fluid were successfully removed. During and after completion of the procedure the patient appear in satisfactory and stable condition with no complications observed. Estimated blood loss 0 cc Impression: Abdominal ascites Successful ultrasound-guided paracentesis as described above
--- NOTE | 2025-03-22 09:48 | PD.EDRME ---
Rapid Medical Screening Exam RME Arrival date/time: 03/22/25 09:27 29-year-old female with a history of hypertension, liver cirrhosis, presents to the emergency room for an abdominal paracentesis. Patient states she has been having shortness of breath for the last 3 days I have greeted and performed a focused initial assessment of this patient. A comprehensive ED assessment and evaluation of the patient, analysis of all test results, and completion of the medical decision making process will be conducted by additional ED providers. Chief Complaint: General Adult/Misc Complain Time Seen by Provider: 03/22/25 09:30 Vital signs: Vital Signs Temperature 97.6 F 03/22/25 09:38 Pulse Rate 102 H 03/22/25 09:38 Respiratory Rate 18 03/22/25 09:38 Blood Pressure 99/68 03/22/25 09:38 Pulse Oximetry (%) 97 03/22/25 09:38 Oxygen Delivery Method Room Air 03/22/25 09:38 Vital signs reviewed by provider: Yes Exam: Distended abdomen Clear bilateral lung sounds Clinical Impression: Paracentesis
[2025-03-22 10:13] LABS: Basophils # (Auto) 0.1 Thou/mm3 (0.0-0.2); Basophils % (Auto) 1 % (0-2.5); Eosinophils # (Auto) 0.2 Thou/mm3 (0.0-0.5); Eosinophils % (Auto) 2 % (0-10); Hematocrit 32.6 % (36.0-46.0); Hemoglobin 10.3 g/dL (12.0-16.0); Immature Granulocytes Auto 0.34 Thou/mm3 (0.00-0.00); Lymphocytes # (Auto) 2.3 Thou/mm3 (1.0-4.8); Lymphocytes % (Auto) 17 % (10-50); Mean Corpuscular HGB Conc 31.6 g/dl (31.0-37.0); Mean Corpuscular Hemoglobin 31.1 pg (25.0-35.0); Mean Corpuscular Volume 99 fL (80-100); Monocytes # (Auto) 0.7 Thou/mm3 (0.0-0.8); Monocytes % (Auto) 5 % (0-12); Neutrophils # (Auto) 10.0 Thou/mm3 (1.8-7.7); Neutrophils % (Auto) 73 % (37-80); Nucleated Red Blood Cell # 0.00 Thou/mm3 (0.00-0.00); Nucleated Red Blood Cell % 0 /100 WBC (0); Platelet Count 517 Thou/mm3 (140-440); RDW Standard Deviation 54.8 fL (36.4-46.3); Red Blood Count 3.31 Miln/mm3 (4.00-5.20); White Blood Count 13.7 Thou/mm3 (3.6-11.0)
[2025-03-22 10:24] LABS: Alanine Aminotransferase 45 U/L (10-49); Albumin, Serum 2.2 gm/dL (3.5-5.0); Albumin/Globulin Ratio 0.5 (1.2-2.2); Alkaline Phosphatase 770 U/L (46-116); Anion Gap 6 (7-16); Aspartate Amino Transferase 166 U/L (0-34); BUN/Creatinine Ratio 30 Ratio (12-20); Bilirubin,Total 0.3 mg/dL (0.3-1.2); Blood Urea Nitrogen 24 mg/dL (9-23); Calcium 7.5 mg/dL (8.3-10.6); Calcium (Corrected) 8.9 mg/dL (8.5-10.1); Carbon Dioxide 21.7 mMol/L (20.0-31.0); Chloride 112 mMol/L (98-107); Creatinine (Component) 0.8 mg/dL (0.6-1.3); Estimated Creatinine Clearance 73.6 mL/min (>60); Globulin 4.5 gm/dL (2.3-3.5); Glucose 90 mg/dL (74-106); Osmolality,Calculated 283 (275-295); Potassium 4.7 mMol/L (3.4-5.1); Sodium 140 mMol/L (136-145); Total Protein 6.7 gm/dL (5.7-8.2); eGFR > 60 See Note
[2025-03-22 10:40] LABS: INR 0.9 (0.9-1.3); Partial Thromboplastin Time 24.5 Seconds (22.0-36.0); Prothrombin Time 9.7 Seconds (9.0-12.2)
--- NOTE | 2025-03-22 13:42 | PC.NURSE ---
NA X 1 FROM [id number]
--- NOTE | 2025-03-22 13:53 | PC.NURSE ---
patient was done with her procedure paracenthesis and left the ED without proper discharge
--- NOTE | 2025-03-22 14:59 | PC.NURSE ---
PT DID NOT ELOPE. SHE WAS HAVING THE PARACENTESIS. PT JUST LEFT.
--- NOTE | 2025-04-18 10:59 | PD.EDURI ---
Upper Respiratory Inf. RME/HPI General Chief Complaint: General Adult/Misc Complain Stated Complaint: PARACENTESIS Time Seen by Provider: 03/22/25 09:30 Arrival date/time: 03/22/25 09:27 RME / HPI RME / HPI Narrative: 03/22/25 09:27 29-year-old female with a history of hypertension, liver cirrhosis, presents to the emergency room for an abdominal paracentesis. Patient states she has been having shortness of breath for the last 3 days I have greeted and performed a focused initial assessment of this patient. A comprehensive ED assessment and evaluation of the patient, analysis of all test results, and completion of the medical decision making process will be conducted by additional ED providers. Exam: Distended abdomen Clear bilateral lung sounds Impression: Paracentesis Related Data Home Medications ?Medication ?Instructions ?Recorded ?Confirmed hydroxychloroquine 200 mg tablet 200 mg PO QDAY 01/01/25 01/01/25 prednisone 10 mg tablet 10 mg PO QDAY 01/01/25 01/01/25 Previous Rx's ?Medication ?Instructions ?Recorded ondansetron 4 mg disintegrating 4 mg PO Q8H PRN nausea and 07/03/24 tablet vomiting #20 tabs furosemide 40 mg tablet (Lasix) 40 mg PO QAM #30 tabs 02/07/25 Allergies Allergy/AdvReac Type Severity Reaction Status Date / Time No Known Allergies Allergy Verified 04/12/25 10:30 Course Quality Measures VTE prophylaxis Orders Category Date Time Status US paracentesis abd w/image Stat Exams 03/22/25 09:48 Completed CBC Stat Lab 03/22/25 09:59 Completed CMP [Comprehensive Metabolic Panel] Stat Lab 03/22/25 09:59 Completed PT [Prothrombin Time with INR] Stat Lab 03/22/25 09:59 Completed PTT [Partial Thromboplastin Time] Stat Lab 03/22/25 09:59 Completed Vital Signs Vital signs: Vital Signs Temperature 97.6 F 03/22/25 09:38 Pulse Rate 102 H 03/22/25 09:38 Respiratory Rate 18 03/22/25 09:38 Blood Pressure 99/68 03/22/25 09:38 Pulse Oximetry (%) 97 03/22/25 09:38 Oxygen Delivery Method Room Air 03/22/25 09:38 Upper Respiratory Infection Patient data External records reviewed:: [facility] previous records Clinical information provided by:: patient Social determinants that could affect healthcare access:: none Patient has the following chronic illnesses:: None How is presenting disease/condition affected by chronic disease/condition?: no chronic disease Evaluation data The following diagnostics were reviewed and interpreted by me:: other (specify) (None) Lab and/or radiology exams considered but not ordered:: None Interpretation Summary: Elopement Medications / Prescriptions Medications or Prescriptions considered but not ordered:: Eloped Medication administrations:: Eloped Consultations Consultation(s) initiated? (list below): No Diagnosis Upper Respiratory Differential Diagnosis: other (None) Most likely diagnosis given after review of the tests above:: Eloped Admission Indicated Admission indicated?: not indicated Admission Request Was there a request for admission?: No Disposition Plan Disposition Plan: other (specify) (Elopement) Discharge Plan Plan Patient Disposition: Elopement Prescriptions/Referrals Prescriptions/Med Rec: No Action prednisone 10 mg tablet 10 mg PO QDAY hydroxychloroquine 200 mg tablet 200 mg PO QDAY furosemide [Lasix] 40 mg tablet 40 mg PO QAM Qty: 30 0RF ondansetron 4 mg tablet,disintegrating 4 mg PO Q8H PRN (Reason: nausea and vomiting) Qty: 20 0RF Referrals: Marek Bullock MD [Primary Care Provider, Family Practice] - In 1 week Problem List Clinical Impression: Status post abdominal paracentesis Patient/Caregiver Discharge Instructions Education Materials: Paracentesis Dc Print Language: Grenadian
== END 2025-03-22 13:57 | disposition left against medical advice (07) ==
PROVIDERS: Nurse Practitioner Family; Emergency Provider Family Medicine; PCP Family Medicine
DX: K74.60 Unspecified cirrhosis of liver (principal); R18.8 Other ascites
CPT/HCPCS: 49083; 36415; 80053; 85025; 85610; 85730; 99283; C1729